=== PATIENT | male | born 1970 | race Two or more races ===

== ENCOUNTER 2016-05-23 19:35 | Inpatient (IN) | payer OTHER ==
[~2016-05-23] VITALS: Ht 172.7 cm; Wt 105.3 kg
[2016-05-23] MEDS ORDERED: dexameTHASONE 4 MG/ML 1ML VIAL (J1100) As Ordered ONE (19:48)
[2016-05-23] MEDS ORDERED: RACEPINEPHrine 2.25 % UD INHA As Ordered ONE ×2 (19:51→21:12)
--- NOTE | 2016-05-23 20:04 | REP ---
Chest one-view HISTORY: Abdominal pain Comparison: None The lungs are clear. The heart is normal in size. The pulmonary vasculature is normal in appearance. Impression: No acute disease. Signed by Baljinder Bess MD 05/23/2016 07:56 P
[2016-05-23] MEDS ORDERED: ISOVUE-370 76% 100ML VIAL (Q9967) As Ordered ONE (20:07)
[2016-05-23 20:34] LABS: BASO % 0.2 % (0.0-1.0); EOS # 0.1 K/mm3 (0.0-0.50); EOS % 0.5 % (0.0-3.0); LARGE UNSTAINED CELL # 0.1 K/mm3 (0.0-0.4); LARGE UNSTAINED CELL % 0.6 % (0.0-4.0); LYMPH # 1.7 K/mm3 (1.5-4.5); LYMPH % 7.8 % (24.0-44.0); MEAN CORPUSCULAR HEMOGLOBIN 32.6 pg (27.0-33.0); MEAN CORPUSCULAR HGB CONC 35.2 g/dl (32.0-36.5); MEAN CORPUSCULAR VOLUME 92.4 fl (80.0-96.0); MONO # 0.8 K/mm3 (0.0-0.8); MONO % 3.6 % (0.0-5.0); NEUTROPHILS # 18.8 K/mm3 (1.8-7.7); NEUTROPHILS % 87.2 % (36.0-66.0); PLATELET COUNT, AUTOMATED 343 k/mm3 (150-450); RED CELL DISTRIBUTION WIDTH 12.7 % (11.5-14.5); WHITE BLOOD COUNT 21.5 K/mm3 (4.0-10.0)
--- NOTE | 2016-05-23 20:50 | REPUSA ---
CT of the soft tissues of the neck with contrast Clinical history: shortness of breath. Technique: Multiple axial CT images were obtained from the base of the skull to the upper thorax afte r ministration of non-ionic intravenous contrast. Coronal and sagittal reconstructions were also obta ined. Findings: The visualized paranasal sinuses are clear. The pterygopalatine fossa, pterygoid plates and pterygoid muscles are unremarkable. The mucosa of the naso- and oropharynx appears unremarkable. The re is a hypodense area of soft tissue at the right posterior base of the epiglottis measuring 2.3 x 1 .6 cm. No discrete fluid collection is identified at this site however. The airway is patent, but mil dly narrowed at this site. The visualized osseous structures are intact. There is no evidence of lymp hadenopathy. The thyroid gland appears unremarkable. The vascular structures demonstrate normal calib er and contour. No enhancing masses are identified. The superficial soft tissues are unremarkable. Impression: Hypodense soft tissue in the right posterior base of the epiglottis as described. This is likely inflammatory in nature. No discrete abscess or mass is identified at this time, but early dev eloping abscess cannot completely be excluded. The findings suggest pharyngitis. Follow-up is suggest ed as clinically indicated.
[2016-05-23] MEDS ORDERED: CLINDAMYCIN INJ 900MG/6ML VIAL As Ordered ONE (21:13)
[2016-05-23] MEDS ORDERED: LevoFLOXacin(LEVAQUIN)500 MG/100 ML BAG (J1956) As Ordered ONE (21:13)
[2016-05-23 21:14] LABS: ANION GAP 10 MEQ/L (8-16); BLOOD UREA NITROGEN 13 MG/DL (7-18); CALCIUM LEVEL 8.3 MG/DL (8.5-10.1); CARBON DIOXIDE LEVEL 24 MEQ/L (21-32); CHLORIDE LEVEL 108 MEQ/L (98-107); CREATININE FOR GFR 0.89 MG/DL (0.70-1.30); GLOMERULAR FILTRATION RATE > 60.0 (>60); GLUCOSE, FASTING 178 MG/DL (70-105); POTASSIUM SERUM 3.7 MEQ/L (3.5-5.1); SODIUM LEVEL 142 MEQ/L (136-145)
[2016-05-23] MEDS ORDERED: PROPOFOL 1,000 MG/100 ML VIAL As Ordered ONE (21:16)
[2016-05-23] MEDS ORDERED: MIDAZOLAM INJ 5 MG/ML VIAL (J2250) As Ordered ONE ×3 (21:37→21:46)
[2016-05-23 21:38] LABS: ABG BASE EXCESS -3.5 (-2.0-2.0); ABG DEVICE NASAL CANN; ABG HCO3 23.3 MEQ/L (22.0-26.0); ABG PARTIAL PRESSURE CO2 47.8 mmHg (35.0-45.0); ABG PARTIAL PRESSURE O2 81.3 mmHg (75.0-100.0); ABG STANDARD HCO3 21.6 MEQ/L (22.0-26.0); ABG TOTAL CO2 24.8 MEQ/L (22.0-29.0); ABG pH (ARTERIAL) 7.306 UNITS (7.350-7.450)
[2016-05-23] MEDS ORDERED: ALBU17IN INH (22:54)
[2016-05-23] MEDS ORDERED: VITMTA PO (22:54)
[2016-05-23] MEDS ORDERED: PROPOFOL 1,000 MG in APPROPRIATE DILUENT 1 EA IV SCH (23:00)
[2016-05-23] MEDS ORDERED: ALBUTEROL SULFATE 2.5 MG/0.5 ML INH NEB SOLN NEB PRN (23:00)
[2016-05-23] MEDS ORDERED: ONDANSETRON 4MG/2ML VIAL (J2405) IV PRN (23:00)
[2016-05-23] MEDS ORDERED: REFRIGERATOR IV KEYS XX PRN (23:00)
[2016-05-23] MEDS ORDERED: BISACODYL 10 MG SUPP PR PRN (23:00)
[2016-05-23 23:07] LABS: ABG BASE EXCESS -8.7 (-2.0-2.0); ABG DEVICE NASAL CANN; ABG HCO3 19.6 MEQ/L (22.0-26.0); ABG PARTIAL PRESSURE CO2 50.8 mmHg (35.0-45.0); ABG PARTIAL PRESSURE O2 95.2 mmHg (75.0-100.0); ABG STANDARD HCO3 17.7 MEQ/L (22.0-26.0); ABG TOTAL CO2 21.2 MEQ/L (22.0-29.0)
[2016-05-23 23:11] LABS: ABG pH (ARTERIAL) 7.205 UNITS (7.350-7.450)
[2016-05-23] MEDS: D5W/0.45% SODIUM CHLORIDE 1,000 ML IV SCH (23:15)
[2016-05-24] VITALS (42 sets, daily range): BP systolic 95–143; BP diastolic 51–74; O2SAT 96
[2016-05-24] MEDS ORDERED: GLUCAGON FOR INJ 1 MG VIAL (J1610) SC PRN (00:15)
[2016-05-24] MEDS ORDERED: GLUCOSE 4 GM CHEW TABLET PO PRN (00:15)
[2016-05-24] MEDS ORDERED: PROPOFOL 1,000 MG/100 ML VIAL As Ordered ONE (00:15)
[2016-05-24] MEDS ORDERED: DEXTROSE 50% 50 ML SYRINGE IV PRN (00:15)
[2016-05-24] MEDS ORDERED: MIDAZOLAM INJ 2 MG/2 ML VIAL (J2250) As Ordered ONE (00:27)
[2016-05-24 00:53] LABS: ABG BASE EXCESS -6.4 (-2.0-2.0); ABG HCO3 20.1 MEQ/L (22.0-26.0); ABG PARTIAL PRESSURE CO2 43.6 mmHg (35.0-45.0); ABG PARTIAL PRESSURE O2 97.5 mmHg (75.0-100.0); ABG STANDARD HCO3 19.3 MEQ/L (22.0-26.0); ABG TOTAL CO2 21.5 MEQ/L (22.0-29.0); ABG pH (ARTERIAL) 7.282 UNITS (7.350-7.450)
[2016-05-24] MEDS ORDERED: ETOMIDATE INJ 20MG/10ML VIAL ONE (01:08)
[2016-05-24] MEDS ORDERED: PROPOFOL 200 MG/20 ML VIAL ONE (01:08)
[2016-05-24] MEDS ORDERED: SUCCINYLCHOLINE 100 MG/5 ML SYRINGE (J0330) ONE (01:08)
--- NOTE | 2016-05-24 01:25 | REP ---
Clinical: Endotracheal tube placement. Comparison: 05/23/2016 07:51 p.m. Findings: Endotracheal tube approximately 4.5 cm above the patricia. Cardiac silhouette is upper limits of normal. Poor expiratory effort limits evaluation and pulmonary vascular congestion as well as scattered atelectasis cannot be excluded. No definite effusion. No pneumothorax. Skeletal structures grossly intact. Impression: Endotracheal tube in satisfactory position. Poor expiratory effort limits evaluation. Signed by Jevon Del Real MD 05/24/2016 01:16 A
--- NOTE | 2016-05-24 01:48 | EDDOCDS ---
Nurse's Notes [facility] Name: Ki Chaney Age: 46 yrs Sex: Male : 1970 Arrival Date: 05/23/2016 Time: 19:35 Bed Admit Hold Private MD: Vanessa Pcp Diagnosis: Acute epiglottitis with obstruction Presentation: 05/23 19:39 Presenting complaint: EMS states: patient from [facility], presented to nn1 them with sore throat and feeling like his throat is closing. Patient reports SOB is worse lying back. Patient given 125mg solumedrol IV, 0.3mg epi IM, and 1 duoneb treatment. Patient has 20G left hand and is on 6L nonrebreather. 19:39 Acuity: WILLIAMS Level 2 nn1 19:39 Method Of Arrival: Ambulance nn1 19:43 Adult Sepsis Screening: The patient does not have new or worsening altered mentation. nn1 Patient has a respiratory rate of greater than or equal to 22 (1 point). Systolic blood pressure is greater than 100. Patient has a qSOFA score of 1- Negative Sepsis Screen. Suicide/Homicide risk assessment- the patient denies having any suicidal and/or homicidal ideations and does not present with any other emotional, behavioral or mental health complaints. 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 Transition of care: Patient was received from [facility]. Triage Assessment: 19:45 General: Appears uncomfortable, Behavior is appropriate for age, cooperative. Pain: nn1 Location: throat Pain currently is 10 out of 10 on a pain scale. Quality of pain is described as "feel like my throat is closing". HIV screening NA for this visit. The patient is triaged at the bedside. See Assessment in Nurses Notes section of ED record. Neurological: Level of Consciousness is awake, alert, obeys commands. Respiratory: Onset: The symptoms/episode began/occurred 1600. Patient reports he went to urgent care because he thought he had strep throat, by the time he arrived he felt like his throat was closing up and he could not breath. , Airway is patent Respiratory effort is even, labored, Respiratory pattern is regular. Derm: Skin is flushed. Historical: - Allergies: PENICILLINS; - Home Meds: 1. none - PMHx: none; - PSHx: Lithotripsy; - Social history: Smoking status: Patient uses tobacco products, heavy tobacco smoker. No barriers to communication noted, The patient speaks fluent Romanian, Speaks appropriately for age. - Family history: Not pertinent. - : The pt / caregiver states he / she is not on anticoagulants. Home medication list is obtained from the patient. - Exposure Risk Screening:: None identified. Screenin:38 Screening information is obtained from the patient. Fall risk: No risks identified. cf2 Assistance ADL's: requires no assistance with activities of daily living. Abuse/DV Screen: The patient / caregiver reports he/she is: not in a situation that causes fear, pain or injury. Nutritional screening: No deficits noted. Advance Directives: Further advance directive information is declined. home support is adequate. Assessment: 20:38 Adult Sepsis Screening: The patient does not have new or worsening altered mentation. cf2 Patient has a respiratory rate of greater than or equal to 22 (1 point). Systolic blood pressure is greater than 100. Patient has a qSOFA score of 1- Negative Sepsis Screen. General: Appears distressed, Behavior is appropriate for age, cooperative. Pain: Denies pain. Neurological: No deficits noted. EENT: Throat is reddened. Cardiovascular: Rhythm is regular. Cardiovascular: Chest pain is denied Denies fatigue, lightheadedness, palpitations, syncope. Respiratory: Airway possibly obstructed. Stridor present patient states blockage in throat Breath sounds are clear Stridor noted. 20:40 Respiratory: Airway is compromised Breath sounds are clear Stridor noted. cf2 20:50 General: Patient to Ct scan. cf2 21:00 General: MD speaks with patient in regards to maintaining airway. Decision made for cf2 intubation, patient and significant other both agree. 21:21 General: Patient was medicated with Etomidate and Succ. Patient was intubated with cf2 7.0/21 at lipon first attempt. Placement verified via auscultation and awaiting x-ray arrival. 21:30 General: Patient medicated with Versed as patient is bucking the vent . cf2 21:55 General: #14 [place] sump inserted with placement verified via auscultation. #16 greek cf[address] Pedersen at bedside to assess patient . 23:13 General: pH 7.205 made aware. Awaiting new orders. General: Patient currently cf2 sedated. Vital signs stable.. 23:15 General: Report to oncoming shift . cf2 23:20 General: Appears in no apparent distress, to be sleeping. orally intubated. sls1 Neurological: Level of Consciousness is sedated. Respiratory: Airway via oral intubation. 23:20 Cardiovascular: Rhythm is regular. Respiratory:. Derm: Skin is pink, warm & dry. js15 05/24 00:20 Reassessment: Patient appears in no apparent distress at this time. Pt orally js15 intubated, sedated; resting on stretcher, skin pink, moist, warm; cardiac rhythm is NSR; [facility]. 01:05 Reassessment: Patient appears in no apparent distress at this time. Pt resting on js15 stretcher, orally intubated; skin pink, warm, dry; cardiac rhythm is NSR. Vital Signs: 05/23 19:20 Pulse 107 MON; Pulse Ox 93% ; cf2 19:24 Pulse 100 MON; Pulse Ox 93% ; cf2 19:27 Pulse 99 MON; Pulse Ox 94% ; cf2 19:29 Pulse 100 MON; Pulse Ox 94% ; cf2 19:39 BP 151 / 87 (auto/); cf2 19:41 Pulse 89 MON; Pulse Ox 98% ; cf2 19:44 Pulse 89 MON; Pulse Ox 98% ; cf2 19:48 Pulse 85 MON; Pulse Ox 98% ; cf2 19:48 BP 147 / 84 (auto/); cf2 19:49 Pulse 86 MON; Pulse Ox 98% ; cf2 19:53 Pulse 90 MON; Pulse Ox 97% ; cf2 19:56 Pulse 89 MON; Pulse Ox 97% ; cf2 20:00 Pulse 91 MON; Pulse Ox 97% ; cf2 20:03 Pulse 87 MON; Pulse Ox 97% ; cf2 20:03 BP 158 / 86 (auto/); cf2 20:07 Pulse 88 MON; Pulse Ox 97% ; cf2 20:10 Pulse 87 MON; Pulse Ox 96% ; cf2 20:14 Pulse 90 MON; Pulse Ox 96% ; cf2 20:17 Pulse 100 MON; Pulse Ox 97% ; cf2 20:18 BP 165 / 86 (auto/); cf2 20:19 Pulse 86 MON; Pulse Ox 97% ; cf2 20:23 Pulse 87 MON; Pulse Ox 97% ; cf2 20:25 Pulse 99 MON; Pulse Ox 97% ; cf2 20:29 Pulse 100 MON; cf2 20:31 Pulse 92 MON; Pulse Ox 96% ; cf2 20:33 BP 151 / 78 (auto/); cf2 20:34 Pulse 90 MON; Pulse Ox 95% ; cf2 20:48 BP 150 / 74 (auto/); cf2 20:49 Pulse 89 MON; Pulse Ox 94% ; cf2 21:03 BP 143 / 71 (auto/); cf2 21:04 Pulse 84 MON; Pulse Ox 90% ; cf2 21:18 BP 154 / 80 (auto/); cf2 21:19 Pulse 97 MON; Pulse Ox 98% ; cf2 21:33 Weight 117.93 kg (R); sls1 21:35 Pulse 101 MON; cf2 21:35 BP 159 / 83 (auto/); cf2 21:36 Pulse 98 MON; cf2 21:37 Pulse 96 MON; Pulse Ox 94% ; cf2 21:42 BP 131 / 85 (auto/); cf2 21:43 Pulse 99 MON; Pulse Ox 96% ; cf2 21:46 Pulse 97 MON; Pulse Ox 95% ; cf2 21:46 BP 136 / 76 (auto/); cf2 21:51 Pulse 93 MON; Pulse Ox 96% ; cf2 21:51 BP 140 / 71 (auto/); cf2 21:56 Pulse 97 MON; Pulse Ox 97% ; cf2 21:56 BP 133 / 71 (auto/); cf2 22:01 Pulse 88 MON; Pulse Ox 96% ; cf2 22:01 BP 107 / 54 (auto/); cf2 22:06 Pulse 97 MON; Pulse Ox 97% ; cf2 22:06 BP 111 / 75 (auto/); cf2 22:11 Pulse 83 MON; Pulse Ox 95% ; cf2 22:11 BP 108 / 56 (auto/); cf2 22:16 Pulse 82 MON; Pulse Ox 96% ; cf2 22:16 BP 101 / 57 (auto/); cf2 22:22 BP 103 / 55 (auto/); cf2 22:23 Pulse 81 MON; Pulse Ox 96% ; cf2 22:26 Pulse 82 MON; Pulse Ox 96% ; cf2 22:26 BP 96 / 51 (auto/); cf2 22:31 Pulse 81 MON; Pulse Ox 96% ; cf2 22:31 BP 103 / 58 (auto/); cf2 22:36 Pulse 80 MON; Pulse Ox 96% ; cf2 22:36 BP 103 / 59 (auto/); cf2 22:41 Pulse 80 MON; Pulse Ox 96% ; cf2 22:41 BP 105 / 56 (auto/); cf2 22:46 Pulse 79 MON; Pulse Ox 96% ; cf2 22:46 BP 109 / 56 (auto/); cf2 22:51 Pulse 85 MON; Pulse Ox 96% ; cf2 22:51 BP 119 / 57 (auto/); cf2 22:56 Pulse 74 MON; Pulse Ox 96% ; cf2 22:56 BP 118 / 58 (auto/); cf2 23:01 Pulse 75 MON; Pulse Ox 97% ; cf2 23:01 BP 110 / 57 (auto/); cf2 23:06 Pulse 76 MON; Pulse Ox 97% ; cf2 23:06 BP 107 / 58 (auto/); cf2 23:11 BP 108 / 58 (auto/); cf2 23:11 Pulse 77 MON; Pulse Ox 96% ; cf2 23:15 Pulse 77 MON; Resp 16; Pulse Ox 96% on 50% FiO2 ETT vent; js15 23:16 BP 107 / 59 (auto/); sls1 23:25 Pulse 75 MON; Pulse Ox 96% ; sls1 23:26 BP 114 / 63 (auto/); sls1 23:30 Pulse 73 MON; Pulse Ox 96% ; sls1 23:31 BP 114 / 63 (auto/); sls1 23:35 Pulse 71 MON; Pulse Ox 97% ; sls1 23:36 BP 115 / 65 (auto/); sls1 23:40 Pulse 71 MON; Pulse Ox 97% ; sls1 23:41 BP 112 / 66 (auto/); sls1 23:45 Pulse 71 MON; Pulse Ox 97% ; sls1 23:46 BP 115 / 67 (auto/); sls1 23:50 Pulse 70 MON; Pulse Ox 97% ; sls1 23:51 BP 116 / 67 (auto/); sls1 23:55 Pulse 70 MON; Pulse Ox 98% ; sls1 23:56 BP 117 / 68 (auto/); sls1 05/24 00:12 BP 120 / 69 (auto/); sls1 00:12 Pulse 68 MON; Pulse Ox 98% ; sls1 00:22 BP 121 / 71 (auto/); sls1 00:22 Pulse 68 MON; Pulse Ox 98% ; sls1 00:31 Pulse 77 MON; Pulse Ox 96% ; sls1 00:32 BP 138 / 80 (auto/); sls1 00:42 BP 141 / 84 (auto/); sls1 00:45 Pulse 76 MON; Pulse Ox 97% ; sls1 00:52 BP 130 / 76 (auto/); sls1 00:53 Pulse 74 MON; Pulse Ox 93% ; sls1 01:02 BP 120 / 64 (auto/); js15 01:02 Pulse 72 MON; Pulse Ox 94% ; js15 01:12 BP 111 / 61 (auto/); js15 01:13 Pulse 69 MON; Resp 16; Temp 97.9(R); Pulse Ox 94% on 50% FiO2 ETT vent; js15 Vitals: 05/23 20:42 Log In Time N/A - ambulance arrival. cf2 ED Course: 19:37 Patient visited by Daisy Hassan PCA. tmm1 19:37 Patient moved to Waiting tmm1 19:38 No Pcp is Private Physician. tmm1 19:38 Ashley Neil RN is Primary Nurse. tmm1 19:38 Patient moved to 1 tmm1 19:41 Gaston Vargas DO is Attending Physician. cs11 19:41 Patient visited by Gaston Vargas DO. cs11 19:42 Triage Initiated nn1 20:08 BLOOD CULTURES Sent. cf2 20:08 MED Profile Sent. cf2 20:08 CBC with Diff Sent. cf2 20:08 -Blood Culture Sent. cf2 20:09 Primary Nurse role handed off by Ashley Neil RN cf2 20:09 Loree Aldana,ANASTACIO is Primary Nurse. cf2 20:09 Patient visited by Loree Aldana,ANASTACIO. cf2 20:19 Patient visited by Loree Aldana,ANASTACIO. cf2 20:28 Patient visited by Loree Aldana,ANASTACIO. cf2 20:33 Patient visited by Loree Aldana,ANASTACIO. cf2 20:38 The patient / caregiver is instructed regarding the plan of care and ED course. Patient cf2 has correct armband on for positive identification. Placed in gown. Bed in low position. Call light in reach. Side rails up X 1. Side rails up X2. groundwater monitoring technician on. Pulse ox on. NIBP on. Property :Personal belongings accompany Pt. Door closed. Noise minimized. Visitors limited. Lights dimmed. Moved to private room. Verbal reassurance given. Warm blanket given. Pillow given. Head of bed elevated. Diet: Patient is NPO. 20:38 Inserted saline lock: 20 gauge in left hand and blood collected. The patient tolerated cf2 the procedure well. No procedures done that require assistance. 20:41 Chest, 1 View Returned. EDMS 21:11 [facility] Payment Agreement was scanned into [employer] and attached to record. zo 21:20 Patient name changed from Hiro\\S\\M\\S\\Chaney\\S\\ to Ki\\S\\ \\S\\Chaney. EDMS 21:24 CT Neck With Contrast Returned. EDMS 21:35 -Arterial Blood Gas Sent. rs5 21:45 Zafar Pedersen is Hospitalizing Provider. cs11 21:55 Romero cath inserted 16 Fr. Balloon inflated. To gravity drainage. Suctioned orally - cf2 moderate amount clear sputum Assist ventilation TV400 O2 40% R14 Peep 5. 21:55 Labs drawn. (by ED staff). Labs/Blood culture drawn. NGT inserted to intermittent cf2 suction. Returned gastric contents. Patient tolerated well. OG tube inserted. 22:09 Patient visited by Loree Aldana RN. cf2 22:54 Patient visited by Loree Aldana RN. cf2 23:00 -Arterial Blood Gas Sent. bb3 23:25 Patient visited by Loree Aldana RN. cf2 23:30 Romero cath inserted Balloon inflated. To gravity drainage. inserted by Stefanie Batista RN. js15 23:39 Patient moved to Admit Hold [facility] 05/24 00:48 ARTERIAL BLOOD GAS Sent. bb3 01:43 Chest, 1 View Returned. EDMS Administered Medications: Discontinued: Dexamethasone 12 mg IV at bolus once Discontinued: levofloxacin 500 mg IVPB once over 60 mins Discontinued: Clindamycin 900 mg IVPB once over 30 mins; dilute in 50mL of NS or D5W 05/23 19:50 Drug: Dexamethasone 12 mg [dexamethasone 4 mg/mL injection solution] Route: IV; Rate: cf2 bolus; Site: left antecubital; 05/24 01:16 Follow up: Response: No significant change. cf2 05/23 19:50 Drug: Racepinephrine 0.5 ml [racepinephrine 2.25 % solution for nebulization (0.5 mL)] rs5 Route: Inhalation; Infused Over: 15 mins; 21:00 Drug: Clindamycin 900 mg [clindamycin 600 mg/50 mL in 5 % dextrose intravenous cf2 piggyback] Route: IVPB; Infused Over: 30 mins; Site: left antecubital; 21:21 Drug: Etomidate 20 mg [etomidate 2 mg/mL intravenous solution (10 mL)] Route: IVP; af2 Site: right antecubital; 05/24 01:13 Follow up: Response: No significant change. cf2 05/23 21:21 Drug: Succinylcholine - Quelicin (1mg/kg) 100 mg [Quelicin 20 mg/mL injection solution af2 (5 mL)] Route: IVP; Site: right antecubital; 05/24 01:13 Follow up: Response: No significant change. cf2 05/23 21:30 Drug: levofloxacin 500 mg [levofloxacin 500 mg/100 mL in 5 % dextrose intravenous cf2 piggyback] Route: IVPB; Infused Over: 60 mins; Site: left antecubital; 05/24 01:16 Follow up: Response: No significant change. cf2 01:16 Follow up: Response: No significant change. 2 05/23 21:30 Drug: diprovan 200 mg Route: IV; Rate: 40 mcg/kg/min; Site: left antecubital; cf2 05/24 01:13 Follow up: Response: No Adverse Reaction 2 05/23 21:35 Drug: Versed - Midazolam (PF) 5 mg [midazolam (PF) 5 mg/mL injection solution (1 mL)] cf2 Route: IVP; Site: left antecubital; 05/24 01:15 Follow up: Response: No significant change. cf2 05/23 21:40 Drug: Versed - Midazolam (PF) 5 mg [midazolam (PF) 5 mg/mL injection solution (1 mL)] cf2 Route: IVP; Site: left antecubital; 05/24 01:14 Follow up: Response: No significant change. cf2 05/23 21:45 Drug: Versed - Midazolam (PF) 10 mg [midazolam (PF) 5 mg/mL injection solution (2 mL)] cf2 Route: IVP; Site: left antecubital; 05/24 01:14 Follow up: Response: No significant change. cf2 05/23 21:55 Drug: Versed - Midazolam (PF) 10 mg [midazolam (PF) 5 mg/mL injection solution (2 mL)] cf2 Route: IVP; Site: left antecubital; 05/24 01:15 Follow up: Response: No significant change. cf2 05/23 22:05 Not Given (Duplicate Order): Versed 5 mg IM once cf2 22:10 Drug: Versed - Midazolam (PF) 5 mg [midazolam (PF) 5 mg/mL injection solution (1 mL)] cf2 Route: IVP; Site: left antecubital; 05/24 01:14 Follow up: Response: No significant change. cf2 05/23 22:10 Drug: Versed - Midazolam (PF) 5 mg [midazolam (PF) 5 mg/mL injection solution (1 mL)] cf2 Route: IVP; Site: left antecubital; 05/24 01:13 Follow up: Response: No significant change. cf2 05/23 22:55 Drug: Versed - Midazolam (PF) 10 mg [midazolam (PF) 5 mg/mL injection solution (2 mL)] cf2 Route: IVP; Site: left antecubital; 05/24 01:14 Follow up: Response: No Adverse Reaction cf2 00:11 Not Given (Duplicate Order): Versed - Midazolam (PF) 10 mg IVP once cf2 00:35 Drug: Midazolam 2 mg [midazolam 1 mg/mL injection solution (2 mL)] Route: IVP; Site: sls1 left antecubital; Output: 01:12 Urine: 800.00ml (Romero); Total: 800.00ml. js15 RT: 05/23 20:03 Initial Med Neb Given as ordered Patient was instructed and evaluated on procedure rs5 Patient tolerated procedure well without adverse effect. Respiratory: Respiratory effort is even, labored, Breath sounds with wheezes bilaterally. Reports air hunger. 21:18 Intubation: Performed by Ventilated with 100% NRB prior to procedure. placed bb3 orally. 7.0 Fr. ETT Cricoid pressure applied during procedure. Placement verified by CO2 detector w/ + color change, auscultating bilateral breath sounds, O2 saturation after procedure was 99 %. Ventilated with ventilator. 21:26 Ventilation: Ventilator Settings Assist Control, FiO2 40% Resp Rate: 16, Tidal Volume bb3 425ml PEEP: 5. Respiratory: PIP approx 19-20 cmH20. 21:35 ABG's drawn from left radial artery allens test done and positive pressure held for 5 rs5 minutes no bleeding noted pressure bandage applied specimen sent pt. tolerated well. Subsequent Med Neb Given as ordered Patient was reinforced on procedure Patient tolerated procedure well without adverse effect. 21:52 Ventilation: Ventilator Settings Pressure Control, FiO2 50% PEEP: 5. rs5 22:38 Respiratory: minute ventilation approx 8 LPM on previous PC settings. bb3 22:41 Ventilation: Ventilator Settings Assist Control, FiO2 50% Resp Rate: 16, Tidal Volume bb3 425ml PEEP: 5. Respiratory: minute ventilation approx 10 LPM. PIP ranges 19-23 on current settings. 23:00 ABG's drawn from right radial artery pressure held for 5 minutes no bleeding noted bb3 pressure bandage applied specimen sent pt. tolerated well. Respiratory: AC 425x16 +5 50%. 23:52 Ventilation: Ventilator Settings PEEP: 8. Respiratory: increased from +[address] rupali pedersen. 05/24 00:48 ABG's drawn from right radial artery pressure held for 5 minutes no bleeding noted bb3 pressure bandage applied specimen sent pt. tolerated well. Respiratory: AC 425x16 +8 50%. Order Results: Lab Order: CBC with Diff; SPEC'M 05/23/16 20:01 Test: WHITE BLOOD COUNT; Value: 21.5; Range: 4.0-10.0; Abnormal: Above high normal; Units: K/mm3; Status: F Test: RED BLOOD COUNT; Value: 5.35; Range: 4.30-6.10; Units: M/mm3; Status: F Test: HEMOGLOBIN; Value: 17.4; Range: 14.0-18.0; Units: g/dl; Status: F Test: HEMATOCRIT; Value: 49.5; Range: 42.0-52.0; Units: %; Status: F Test: MEAN CORPUSCULAR VOLUME; Value: 92.4; Range: 80.0-96.0; Units: fl; Status: F Test: MEAN CORPUSCULAR HEMOGLOBIN; Value: 32.6; Range: 27.0-33.0; Units: pg; Status: F Test: MEAN CORPUSCULAR HGB CONC; Value: 35.2; Range: 32.0-36.5; Units: g/dl; Status: F Test: RED CELL DISTRIBUTION WIDTH; Value: 12.7; Range: 11.5-14.5; Units: %; Status: F Test: PLATELET COUNT, AUTOMATED; Value: 343; Range: 150-450; Units: k/mm3; Status: F Test: NEUTROPHILS %; Value: 87.2; Range: 36.0-66.0; Abnormal: Above high normal; Units: %; Status: F Test: LYMPH %; Value: 7.8; Range: 24.0-44.0; Abnormal: Below low normal; Units: %; Status: F Test: MONO %; Value: 3.6; Range: 0.0-5.0; Units: %; Status: F Test: EOS %; Value: 0.5; Range: 0.0-3.0; Units: %; Status: F Test: BASO %; Value: 0.2; Range: 0.0-1.0; Units: %; Status: F Test: LARGE UNSTAINED CELL %; Value: 0.6; Range: 0.0-4.0; Units: %; Status: F Test: NEUTROPHILS #; Value: 18.8; Range: 1.8-7.7; Abnormal: Above high normal; Units: K/mm3; Status: F Test: LYMPH #; Value: 1.7; Range: 1.5-4.5; Units: K/mm3; Status: F Test: MONO #; Value: 0.8; Range: 0.0-0.8; Units: K/mm3; Status: F Test: EOS #; Value: 0.1; Range: 0.0-0.50; Units: K/mm3; Status: F Test: BASO #; Value: 0.0; Range: 0.0-0.2; Units: K/mm3; Status: F Test: LARGE UNSTAINED CELL #; Value: 0.1; Range: 0.0-0.4; Units: K/mm3; Status: F Lab Order: MED Profile; SPEC'05/23/16 20:44 Test: GLUCOSE, FASTING; Value: 178; Range: 70-105; Abnormal: Above high normal; Units: MG/DL; Status: F Test: BLOOD UREA NITROGEN; Value: 13; Range: 7-18; Units: MG/DL; Status: F Test: CREATININE FOR GFR; Value: 0.89; Range: 0.70-1.30; Units: MG/DL; Status: F Test: GLOMERULAR FILTRATION RATE; Value: > 60.0; Range: >60; Status: F Test: SODIUM LEVEL; Value: 142; Range: 136-145; Units: MEQ/L; Status: F Test: POTASSIUM SERUM; Value: 3.7; Range: 3.5-5.1; Units: MEQ/L; Status: F Test: CHLORIDE LEVEL; Value: 108; Range: 98-107; Abnormal: Above high normal; Units: MEQ/L; Status: F Test: CARBON DIOXIDE LEVEL; Value: 24; Range: 21-32; Units: MEQ/L; Status: F Test: ANION GAP; Value: 10; Range: 8-16; Units: MEQ/L; Status: F Test: CALCIUM LEVEL; Value: 8.3; Range: 8.5-10.1; Abnormal: Below low normal; Units: MG/DL; Status: F Test Note: ; Units are mL/min/1.73 m2 Chronic Kidney Disease Staging per NKF: Stage I & II GFR >=60 Normal to Mildly Decreased Stage III GFR 30-59 Moderately Decreased Stage IV GFR 15-29 Severely Decreased Stage V GFR <15 Very Little GFR Left ESRD GFR <15 on CLINIC OFFICE ASSISTANT Lab Order: -Arterial Blood Gas; SPEC'M 05/23/16 21:29 Test: ABG pH (ARTERIAL); Value: 7.306; Range: 7.350-7.450; Abnormal: Below low normal; Units: UNITS; Status: F Test: ABG PARTIAL PRESSURE CO2; Value: 47.8; Range: 35.0-45.0; Abnormal: Above high normal; Units: mmHg; Status: F Test: ABG PARTIAL PRESSURE O2; Value: 81.3; Range: 75.0-100.0; Units: mmHg; Status: F Test: ABG TOTAL CO2; Value: 24.8; Range: 22.0-29.0; Units: MEQ/L; Status: F Test: ABG HCO3; Value: 23.3; Range: 22.0-26.0; Units: MEQ/L; Status: F Test: ABG BASE EXCESS; Value: -3.5; Range: -2.0-2.0; Abnormal: Below low normal; Status: F Test: ABG STANDARD HCO3; Value: 21.6; Range: 22.0-26.0; Abnormal: Below low normal; Units: MEQ/L; Status: F Test: ABG O2 SATURATION; Value: 95.4; Range: 95.0-99.0; Units: %; Status: F Test: ABG DEVICE; Value: NASAL VICENTE; Status: F Lab Order: -Arterial Blood Gas; [facility] 05/23/16 22:59 Test: ABG pH (ARTERIAL); Value: 7.205; Range: 7.350-7.450; Abnormal: Critical Low; Units: UNITS; Status: F Test: ABG PARTIAL PRESSURE CO2; Value: 50.8; Range: 35.0-45.0; Abnormal: Above high normal; Units: mmHg; Status: F Test: ABG PARTIAL PRESSURE O2; Value: 95.2; Range: 75.0-100.0; Units: mmHg; Status: F Test: ABG TOTAL CO2; Value: 21.2; Range: 22.0-29.0; Abnormal: Below low normal; Units: MEQ/L; Status: F Test: ABG HCO3; Value: 19.6; Range: 22.0-26.0; Abnormal: Below low normal; Units: MEQ/L; Status: F Test: ABG BASE EXCESS; Value: -8.7; Range: -2.0-2.0; Abnormal: Below low normal; Status: F Test: ABG STANDARD HCO3; Value: 17.7; Range: 22.0-26.0; Abnormal: Below low normal; Units: MEQ/L; Status: F Test: ABG O2 SATURATION; Value: 96.3; Range: 95.0-99.0; Units: %; Status: F Test: ABG DEVICE; Value: NASAL VICENTE; Status: F Lab Order: ARTERIAL BLOOD GAS; SPEC'M 05/24/16 00:47 Test: ABG pH (ARTERIAL); Value: 7.282; Range: 7.350-7.450; Abnormal: Below low normal; Units: UNITS; Status: F Test: ABG PARTIAL PRESSURE CO2; Value: 43.6; Range: 35.0-45.0; Units: mmHg; Status: F Test: ABG PARTIAL PRESSURE O2; Value: 97.5; Range: 75.0-100.0; Units: mmHg; Status: F Test: ABG TOTAL CO2; Value: 21.5; Range: 22.0-29.0; Abnormal: Below low normal; Units: MEQ/L; Status: F Test: ABG HCO3; Value: 20.1; Range: 22.0-26.0; Abnormal: Below low normal; Units: MEQ/L; Status: F Test: ABG BASE EXCESS; Value: -6.4; Range: -2.0-2.0; Abnormal: Below low normal; Status: F Test: ABG STANDARD HCO3; Value: 19.3; Range: 22.0-26.0; Abnormal: Below low normal; Units: MEQ/L; Status: F Test: ABG O2 SATURATION; Value: 97.3; Range: 95.0-99.0; Units: %; Status: F Radiology Order: Chest, 1 View Test: Chest, 1 View REASON FOR EXAMINATION: Abdomen Pain; Chest one-view; ; HISTORY: Abdominal pain; ; Comparison: None; ; The lungs are clear. The heart is normal in size. The pulmonary vasculature is; normal in appearance.; ; Impression: No acute disease.; ; ; Signed by; Baljinder Bess MD 05/23/2016 07:56 P; Radiology Order: CT Neck With Contrast Test: CT Neck With Contrast REASON FOR EXAMINATION: Shortness of Breath; ; CT of the soft tissues of the neck with contrast; Clinical history: shortness of breath.; Technique: Multiple axial CT images were obtained from the base of the skull to the upper thorax afte; r ministration of non-ionic intravenous contrast. Coronal and sagittal reconstructions were also obta; ined.; Findings: The visualized paranasal sinuses are clear. The pterygopalatine fossa, pterygoid plates and; pterygoid muscles are unremarkable. The mucosa of the naso- and oropharynx appears unremarkable. The; re is a hypodense area of soft tissue at the right posterior base of the epiglottis measuring 2.3 x 1; .6 cm. No discrete fluid collection is identified at this site however. The airway is patent, but mil; dly narrowed at this site. The visualized osseous structures are intact. There is no evidence of lymp; hadenopathy. The thyroid gland appears unremarkable. The vascular structures demonstrate normal calib; er and contour. No enhancing masses are identified. The superficial soft tissues are unremarkable.; Impression: Hypodense soft tissue in the right posterior base of the epiglottis as described. This is; likely inflammatory in nature. No discrete abscess or mass is identified at this time, but early dev; eloping abscess cannot completely be excluded. The findings suggest pharyngitis. Follow-up is suggest; ed as clinically indicated.; ; Radiology Order: Chest, 1 View Test: Chest, 1 View REASON FOR EXAMINATION: ett place; Clinical: Endotracheal tube placement.; ; Comparison: 05/23/2016 07:51 p.m.; ; Findings:; Endotracheal tube approximately 4.5 cm above the patricia.; Cardiac silhouette is upper limits of normal.; Poor expiratory effort limits evaluation and pulmonary vascular congestion as; well as scattered atelectasis cannot be excluded. No definite effusion. No; pneumothorax. Skeletal structures grossly intact.; ; Impression:; Endotracheal tube in satisfactory position. Poor expiratory effort limits; evaluation.; ; ; Signed by; Jevon Del Real MD 05/24/2016 01:16 A; Outcome: 05/23 20:38 CT Study completed. cf2 21:45 Decision to Hospitalize by Provider. cs11 05/24 01:05 Admission hand-off: Report called to Rosie CHAVES. js15 01:05 Discharge Assessment: Patient sedated. patient administered narcotics - no. The js15 following High Risk Discharge criteria are identified: None. Admitted to ICU accompanied by nurse, accompanied by tech, family with patient, via stretcher, with oxygen, on monitor, with chart. critical. Property given to girlfriencristóbal Cade. 01:47 Patient left the ED. sls1 Signatures: Dispatcher [employer] EDMS Idris Amaya Brad bb3 Hortencia Rossi, RN RN sls1 Jordi Hitchcock,RT RT rs5 Gaston Vargas, DO DO cs11 McLear, Daisy, PATIENT CARE REPRESENTATIVE PATIENT CARE REPRESENTATIVE tmm1 Fadia Egan,RN RN af2 Twyla Gotti,RN RN js15 Linda Grullon,RN RN nn1 Loree Aldana,RN RN cf2 Corrections: (The following items were deleted from the chart) 05/23 21:28 21:26 Ventilation: Ventilator Settings Assist Control, FiO2 40% Resp Rate: 16, Tidal bb3 Volume 400ml PEEP: 5. bb3 05/24 00:11 05/22 21:30 Versed - Midazolam (PF) 10 mg IVP in left antecubital cf2 cf2 05/24 01:10 05/23 23:15 Pulse 77bpm; Monitor; Pulse Ox 96%; [facility] js15 MTDD
--- NOTE | 2016-05-24 01:48 | EDDOCDS ---
Physician Documentation [facility] Name: Ki Chaney Age: 46 yrs Sex: Male : 1970 Arrival Date: 05/23/2016 Time: 19:35 Bed Admit Hold Private MD: No Pcp Disposition: 05/23 22:49 Critical Care:. cs11 Disposition: 05/23/16 21:45 Hospitalization ordered by Zafar Pedersen for Inpatient Admission. Preliminary diagnosis is Acute epiglottitis with obstruction. - Bed requested for M ICU. - Status is Inpatient Admission. sls1 - Condition is Stable. - Problem is new. - Symptoms have improved. Historical: - Allergies: PENICILLINS; - Home Meds: 1. none - PMHx: none; - PSHx: Lithotripsy; - Social history: Smoking status: Patient uses tobacco products, heavy tobacco smoker. No barriers to communication noted, The patient speaks fluent Yi, Speaks appropriately for age. - Family history: Not pertinent. - : The pt / caregiver states he / she is not on anticoagulants. Home medication list is obtained from the patient. - Exposure Risk Screening:: None identified. Vital Signs: 19:20 Pulse 107 MON; Pulse Ox 93% ; cf2 19:24 Pulse 100 MON; Pulse Ox 93% ; cf2 19:27 Pulse 99 MON; Pulse Ox 94% ; cf2 19:29 Pulse 100 MON; Pulse Ox 94% ; cf2 19:39 BP 151 / 87 (auto/); cf2 19:41 Pulse 89 MON; Pulse Ox 98% ; cf2 19:44 Pulse 89 MON; Pulse Ox 98% ; cf2 19:48 Pulse 85 MON; Pulse Ox 98% ; cf2 19:48 BP 147 / 84 (auto/); cf2 19:49 Pulse 86 MON; Pulse Ox 98% ; cf2 19:53 Pulse 90 MON; Pulse Ox 97% ; cf2 19:56 Pulse 89 MON; Pulse Ox 97% ; cf2 20:00 Pulse 91 MON; Pulse Ox 97% ; cf2 20:03 Pulse 87 MON; Pulse Ox 97% ; cf2 20:03 BP 158 / 86 (auto/); cf2 20:07 Pulse 88 MON; Pulse Ox 97% ; cf2 20:10 Pulse 87 MON; Pulse Ox 96% ; cf2 20:14 Pulse 90 MON; Pulse Ox 96% ; cf2 20:17 Pulse 100 MON; Pulse Ox 97% ; cf2 20:18 BP 165 / 86 (auto/); cf2 20:19 Pulse 86 MON; Pulse Ox 97% ; cf2 20:23 Pulse 87 MON; Pulse Ox 97% ; cf2 20:25 Pulse 99 MON; Pulse Ox 97% ; cf2 20:29 Pulse 100 MON; cf2 20:31 Pulse 92 MON; Pulse Ox 96% ; cf2 20:33 BP 151 / 78 (auto/); cf2 20:34 Pulse 90 MON; Pulse Ox 95% ; cf2 20:48 BP 150 / 74 (auto/); cf2 20:49 Pulse 89 MON; Pulse Ox 94% ; cf2 21:03 BP 143 / 71 (auto/); cf2 21:04 Pulse 84 MON; Pulse Ox 90% ; cf2 21:18 BP 154 / 80 (auto/); cf2 21:19 Pulse 97 MON; Pulse Ox 98% ; cf2 21:33 Weight 117.93 kg / 259.99 lbs (R); sls1 21:35 Pulse 101 MON; cf2 21:35 BP 159 / 83 (auto/); cf2 21:36 Pulse 98 MON; cf2 21:37 Pulse 96 MON; Pulse Ox 94% ; cf2 21:42 BP 131 / 85 (auto/); cf2 21:43 Pulse 99 MON; Pulse Ox 96% ; cf2 21:46 Pulse 97 MON; Pulse Ox 95% ; cf2 21:46 BP 136 / 76 (auto/); cf2 21:51 Pulse 93 MON; Pulse Ox 96% ; cf2 21:51 BP 140 / 71 (auto/); cf2 21:56 Pulse 97 MON; Pulse Ox 97% ; cf2 21:56 BP 133 / 71 (auto/); cf2 22:01 Pulse 88 MON; Pulse Ox 96% ; cf2 22:01 BP 107 / 54 (auto/); cf2 22:06 Pulse 97 MON; Pulse Ox 97% ; cf2 22:06 BP 111 / 75 (auto/); cf2 22:11 Pulse 83 MON; Pulse Ox 95% ; cf2 22:11 BP 108 / 56 (auto/); cf2 22:16 Pulse 82 MON; Pulse Ox 96% ; cf2 22:16 BP 101 / 57 (auto/); cf2 22:22 BP 103 / 55 (auto/); cf2 22:23 Pulse 81 MON; Pulse Ox 96% ; cf2 22:26 Pulse 82 MON; Pulse Ox 96% ; cf2 22:26 BP 96 / 51 (auto/); cf2 22:31 Pulse 81 MON; Pulse Ox 96% ; cf2 22:31 BP 103 / 58 (auto/); cf2 22:36 Pulse 80 MON; Pulse Ox 96% ; cf2 22:36 BP 103 / 59 (auto/); cf2 22:41 Pulse 80 MON; Pulse Ox 96% ; cf2 22:41 BP 105 / 56 (auto/); cf2 22:46 Pulse 79 MON; Pulse Ox 96% ; cf2 22:46 BP 109 / 56 (auto/); cf2 22:51 Pulse 85 MON; Pulse Ox 96% ; cf2 22:51 BP 119 / 57 (auto/); cf2 22:56 Pulse 74 MON; Pulse Ox 96% ; cf2 22:56 BP 118 / 58 (auto/); cf2 23:01 Pulse 75 MON; Pulse Ox 97% ; cf2 23:01 BP 110 / 57 (auto/); cf2 23:06 Pulse 76 MON; Pulse Ox 97% ; cf2 23:06 BP 107 / 58 (auto/); cf2 23:11 BP 108 / 58 (auto/); cf2 23:11 Pulse 77 MON; Pulse Ox 96% ; cf2 23:15 Pulse 77 MON; Resp 16; Pulse Ox 96% on 50% FiO2 ETT vent; js15 23:16 BP 107 / 59 (auto/); sls1 23:25 Pulse 75 MON; Pulse Ox 96% ; sls1 23:26 BP 114 / 63 (auto/); sls1 23:30 Pulse 73 MON; Pulse Ox 96% ; sls1 23:31 BP 114 / 63 (auto/); sls1 23:35 Pulse 71 MON; Pulse Ox 97% ; sls1 23:36 BP 115 / 65 (auto/); sls1 23:40 Pulse 71 MON; Pulse Ox 97% ; sls1 23:41 BP 112 / 66 (auto/); sls1 23:45 Pulse 71 MON; Pulse Ox 97% ; sls1 23:46 BP 115 / 67 (auto/); sls1 23:50 Pulse 70 MON; Pulse Ox 97% ; sls1 23:51 BP 116 / 67 (auto/); sls1 23:55 Pulse 70 MON; Pulse Ox 98% ; sls1 23:56 BP 117 / 68 (auto/); sls1 05/24 00:12 BP 120 / 69 (auto/); sls1 00:12 Pulse 68 MON; Pulse Ox 98% ; sls1 00:22 BP 121 / 71 (auto/); sls1 00:22 Pulse 68 MON; Pulse Ox 98% ; sls1 00:31 Pulse 77 MON; Pulse Ox 96% ; sls1 00:32 BP 138 / 80 (auto/); sls1 00:42 BP 141 / 84 (auto/); sls1 00:45 Pulse 76 MON; Pulse Ox 97% ; sls1 00:52 BP 130 / 76 (auto/); sls1 00:53 Pulse 74 MON; Pulse Ox 93% ; sls1 01:02 BP 120 / 64 (auto/); js15 01:02 Pulse 72 MON; Pulse Ox 94% ; js15 01:12 BP 111 / 61 (auto/); js15 01:13 Pulse 69 MON; Resp 16; Temp 97.9(R); Pulse Ox 94% on 50% FiO2 ETT vent; js15 Procedures: 05/23 22:49 Intubation: Ventilated with 100% NRB prior to procedure. Intubated orally using # 3 cs11 Mitchell blade with 7.0 Fr. ETT. was successful on first attempt. Ventilated with ventilator. Cricoid pressure applied during procedure. Placement verified by CXR, CO2 detector w/ + color change, auscultating bilateral breath sounds, O2 saturation after procedure was 99 %. Patient tolerated well. MDM: 19:44 IV Saline Lock ordered. cs11 19:44 Dexamethasone 12 mg IV at bolus once ordered. cs11 19:44 Racepinephrine Solution 0.5 ml Inhalation once over 15 mins; dilute in 3 mL saline and cs11 administer via nebulizer over 15 minutes ordered. 19:44 Call Respiratory ordered. cs11 19:44 -Blood Culture (Adults Only), peripheral from different site, or from device/port/PICC cs11 etc. if present ordered. 19:45 CBC with Diff Ordered. EDMS 19:45 MED Profile Ordered. EDMS 19:45 -Blood Culture Ordered. EDMS 19:45 Soft Tissue Neck Ordered. EDMS 19:45 Chest, 1 View Ordered. EDMS 19:46 Call Respiratory complete. jlm 19:51 -Blood Culture (Adults Only), peripheral from different site, or from device/port/PICC tmm1 etc. if present complete. 19:52 BLOOD CULTURES Ordered. EDMS 20:02 CT Neck With Contrast Ordered. EDMS 20:56 CBC with Diff Reviewed. cs11 20:56 Chest, 1 View Reviewed. cs11 20:58 levofloxacin 500 mg IVPB once over 60 mins ordered. cs11 20:58 Clindamycin 900 mg IVPB once over 30 mins; dilute in 50mL of NS or D5W ordered. cs11 21:06 Financial registration complete. zo 21:11 [facility] Payment Agreement was scanned into [employer] and attached to record. zo 21:28 Ventilator settings as per RT ordered. bb3 21:29 Call Respiratory ordered. cs11 21:29 Call Respiratory complete. tmm1 21:30 Chest, 1 View Ordered. EDMS 21:30 -Arterial Blood Gas Ordered. EDMS 21:37 BED REQUEST+ADM ordered. EDMS 21:40 MED Profile Reviewed. cs11 21:40 CT Neck With Contrast Reviewed. cs11 21:47 Misc. Nursing Order ordered. cs11 22:04 Versed - Midazolam (PF) 5 mg IVP once ordered. cf2 22:04 Versed 5 mg IM once ordered. cf2 22:04 Versed - Midazolam (PF) 5 mg IVP once ordered. cf2 22:04 Versed - Midazolam (PF) 10 mg IVP every 10 minutes ordered. cf2 22:06 Versed - Midazolam (PF) 10 mg IVP once ordered. cf2 22:09 Versed - Midazolam (PF) 5 mg IVP once ordered. cf2 22:09 Versed - Midazolam (PF) 5 mg IVP once ordered. cf2 22:46 -Arterial Blood Gas Ordered. EDMS 22:55 Versed - Midazolam (PF) 10 mg IVP once ordered. cf2 22:59 Admission / Observation Status ordered. EDMS 23:00 NPO DIET ordered. EDMS 23:01 CRITICAL CARE PROFILE Ordered. EDMS 23:01 MAGNESIUM LEVEL Ordered. EDMS 23:01 CBC WITH DIFFERENTIAL Ordered. EDMS 23:03 Versed - Midazolam (PF) 10 mg IVP once ordered. cf2 23:06 diprovan 200 mg IV at 40 mcg/kg/min continuous ordered. cf2 23:13 VENTILATOR SETTINGS ordered. EDMS 23:13 PORTABLE CHEST X-RAY Ordered. EDMS 23:13 PORTABLE CHEST X-RAY Ordered. EDMS 23:13 PORTABLE CHEST X-RAY Ordered. EDMS 23:13 PORTABLE CHEST X-RAY Ordered. EDMS 23:13 PORTABLE CHEST X-RAY Ordered. EDMS 23:13 PORTABLE CHEST X-RAY Ordered. EDMS 23:13 PORTABLE CHEST X-RAY Ordered. EDMS 23:13 PORTABLE CHEST X-RAY Ordered. EDMS 23:18 Etomidate 20 mg IVP once ordered. cs11 23:18 Succinylcholine - Quelicin (1mg/kg) 100 mg IVP once ordered. cs11 23:20 ARTERIAL BLOOD GAS Ordered. EDMS 23:21 -Arterial Blood Gas Reviewed. cs11 23:21 -Arterial Blood Gas Reviewed. cs11 05/24 00:11 Versed - Midazolam (PF) 10 mg IVP once ordered. cf2 00:52 Midazolam 2 mg IVP once ordered. sls1 Administered Medications: Discontinued: Dexamethasone 12 mg IV at bolus once Discontinued: levofloxacin 500 mg IVPB once over 60 mins Discontinued: Clindamycin 900 mg IVPB once over 30 mins; dilute in 50mL of NS or D5W 05/23 19:50 Drug: Dexamethasone 12 mg [dexamethasone 4 mg/mL injection solution] Route: IV; Rate: cf2 bolus; Site: left antecubital; 05/24 01:16 Follow up: Response: No significant change. cf2 05/23 19:50 Drug: Racepinephrine 0.5 ml [racepinephrine 2.25 % solution for nebulization (0.5 mL)] rs5 Route: Inhalation; Infused Over: 15 mins; 21:00 Drug: Clindamycin 900 mg [clindamycin 600 mg/50 mL in 5 % dextrose intravenous cf2 piggyback] Route: IVPB; Infused Over: 30 mins; Site: left antecubital; 21:21 Drug: Etomidate 20 mg [etomidate 2 mg/mL intravenous solution (10 mL)] Route: IVP; af2 Site: right antecubital; 05/24 01:13 Follow up: Response: No significant change. cf2 05/23 21:21 Drug: Succinylcholine - Quelicin (1mg/kg) 100 mg [Quelicin 20 mg/mL injection solution af2 (5 mL)] Route: IVP; Site: right antecubital; 05/24 01:13 Follow up: Response: No significant change. cf2 05/23 21:30 Drug: levofloxacin 500 mg [levofloxacin 500 mg/100 mL in 5 % dextrose intravenous cf2 piggyback] Route: IVPB; Infused Over: 60 mins; Site: left antecubital; 05/24 01:16 Follow up: Response: No significant change. cf2 01:16 Follow up: Response: No significant change. cf2 05/23 21:30 Drug: diprovan 200 mg Route: IV; Rate: 40 mcg/kg/min; Site: left antecubital; cf2 05/24 01:13 Follow up: Response: No Adverse Reaction cf2 05/23 21:35 Drug: Versed - Midazolam (PF) 5 mg [midazolam (PF) 5 mg/mL injection solution (1 mL)] cf2 Route: IVP; Site: left antecubital; 05/24 01:15 Follow up: Response: No significant change. cf2 05/23 21:40 Drug: Versed - Midazolam (PF) 5 mg [midazolam (PF) 5 mg/mL injection solution (1 mL)] cf2 Route: IVP; Site: left antecubital; 05/24 01:14 Follow up: Response: No significant change. cf2 05/23 21:45 Drug: Versed - Midazolam (PF) 10 mg [midazolam (PF) 5 mg/mL injection solution (2 mL)] cf2 Route: IVP; Site: left antecubital; 05/24 01:14 Follow up: Response: No significant change. cf2 05/23 21:55 Drug: Versed - Midazolam (PF) 10 mg [midazolam (PF) 5 mg/mL injection solution (2 mL)] cf2 Route: IVP; Site: left antecubital; 05/24 01:15 Follow up: Response: No significant change. cf2 05/23 22:05 Not Given (Duplicate Order): Versed 5 mg IM once cf2 22:10 Drug: Versed - Midazolam (PF) 5 mg [midazolam (PF) 5 mg/mL injection solution (1 mL)] cf2 Route: IVP; Site: left antecubital; 05/24 01:14 Follow up: Response: No significant change. cf2 05/23 22:10 Drug: Versed - Midazolam (PF) 5 mg [midazolam (PF) 5 mg/mL injection solution (1 mL)] cf2 Route: IVP; Site: left antecubital; 05/24 01:13 Follow up: Response: No significant change. cf2 05/23 22:55 Drug: Versed - Midazolam (PF) 10 mg [midazolam (PF) 5 mg/mL injection solution (2 mL)] cf2 Route: IVP; Site: left antecubital; 05/24 01:14 Follow up: Response: No Adverse Reaction cf2 00:11 Not Given (Duplicate Order): Versed - Midazolam (PF) 10 mg IVP once cf2 00:35 Drug: Midazolam 2 mg [midazolam 1 mg/mL injection solution (2 mL)] Route: IVP; Site: [facility] left antecubital; Critical Care Time: 05/23 22:49 Critical care time: Bedside Care: 120 minutes. Total time: 120 minutes cs11 Signatures: Dispatcher [employer] EDMS Idris Amaya Brad bb3 Hortencia Rossi, RN RN sls1 Gaston Vargas DO DO cs11 McLear, Daisy, RACE RELATIONS PROFESSOR RACE RELATIONS PROFESSOR tmm1 Nicki Bautista, Logistics Account Manager Unit jlm Linda GrullonRN RN nn1 Loree Aldana,RN RN cf2 Reinaldo Velasquez RN RN sa Spurling, Richard RT rs5 Fadia Egan RN af2 The chart was reviewed and I authenticate all verbal orders and agree with the evaluation and treatment provided.Attachments: 21:11 [facility] Payment Agreement zo MTDD
[2016-05-24] MEDS: MIDAZOLAM INJ 2 MG/2 ML VIAL (J2250) IV PRN ×5 (02:24→19:19)
[2016-05-24] MEDS: HumaLOG INSULIN (NovoLOG) PER UNIT SC SCH ×5 (03:04→23:30)
[2016-05-24] MEDS: PANTOPRAZOLE 40MG INJ (PROTONIX) (C9113) IV SCH ×2 (03:04→21:31)
[2016-05-24] MEDS: IPRATROPIUM 0.5MG/ALBUTEROL 2.5MG INH SOL UD 3ML (DUONEB)(J7620) NEB SCH ×6 (03:30→23:42)
[2016-05-24] MEDS: HEPARIN SOD (PORCINE) 5000 UNITS/ML VIAL SC SCH ×3 (05:31→21:31)
[2016-05-24] MEDS: PROPOFOL 1,000 MG in APPROPRIATE DILUENT 1 EA IV SCH ×8 (05:31→23:03)
[2016-05-24] MEDS: CLINDAMYCIN 900 MG in APPROPRIATE DILUENT 1 EA IV SCH ×3 (05:32→21:31)
--- NOTE | 2016-05-24 05:36 | REP ---
SOFT TISSUE NECK, ONE VIEW: HISTORY: Shortness of breath. The cervical spine is visualized from C1-C5 in the lateral radiograph. There is thickening of the epiglottis and hypopharyngeal soft tissues. There is mild distention of the vahid- and hypopharynx. There is no acute fracture or subluxation. The intervertebral discs are normal in height. IMPRESSION: There is thickening of the epiglottis and hypopharyngeal soft tissue. This is secondary to inflammation or a mass. CT of the neck is recommended for further evaluation. Signed by Baljinder Bess MD 05/24/2016 08:46 A
[2016-05-24 05:42] LABS: BASO % 0.1 % (0.0-1.0); EOS # 0.1 K/mm3 (0.0-0.50); EOS % 0.5 % (0.0-3.0); LARGE UNSTAINED CELL # 0.1 K/mm3 (0.0-0.4); LARGE UNSTAINED CELL % 0.4 % (0.0-4.0); LYMPH # 0.9 K/mm3 (1.5-4.5); LYMPH % 4.4 % (24.0-44.0); MEAN CORPUSCULAR HEMOGLOBIN 32.6 pg (27.0-33.0); MEAN CORPUSCULAR HGB CONC 34.4 g/dl (32.0-36.5); MONO # 0.5 K/mm3 (0.0-0.8); MONO % 2.6 % (0.0-5.0); NEUTROPHILS # 17.9 K/mm3 (1.8-7.7); NEUTROPHILS % 91.9 % (36.0-66.0); PLATELET COUNT, AUTOMATED 297 k/mm3 (150-450); RED CELL DISTRIBUTION WIDTH 12.9 % (11.5-14.5); WHITE BLOOD COUNT 19.4 K/mm3 (4.0-10.0)
[2016-05-24 05:56] LABS: ALBUMIN 3.2 GM/DL (3.2-5.2); ALKALINE PHOSPHATASE 84 U/L (45-117); ALT/SGPT 43 U/L (12-78); ANION GAP 11 MEQ/L (8-16); AST/SGOT 9 U/L (15-37); BILIRUBIN,TOTAL 0.5 MG/DL (0.2-1.0); BLOOD UREA NITROGEN 15 MG/DL (7-18); CALCIUM LEVEL 7.7 MG/DL (8.5-10.1); CARBON DIOXIDE LEVEL 24 MEQ/L (21-32); CHLORIDE LEVEL 109 MEQ/L (98-107); CHOLESTEROL LEVEL 140 MG/DL (< 200); CREATININE FOR GFR 1.04 MG/DL (0.70-1.30); GLOMERULAR FILTRATION RATE > 60.0 (>60); GLUCOSE, FASTING 174 MG/DL (70-105); MAGNESIUM LEVEL 2.4 MG/DL (1.8-2.4); PHOSPHORUS LEVEL 3.4 MG/DL (2.5-4.9); POTASSIUM SERUM 4.3 MEQ/L (3.5-5.1); SODIUM LEVEL 144 MEQ/L (136-145); TOTAL PROTEIN 6.4 GM/DL (6.4-8.2); TRIGLYCERIDES LEVEL 217 MG/DL (<150)
[2016-05-24] MEDS ORDERED: CLINDAMYCIN 900 MG in APPROPRIATE DILUENT 1 EA IV SCH (06:00)
[2016-05-24 06:53] LABS: ABG BASE EXCESS -2.3 (-2.0-2.0); ABG HCO3 23.4 MEQ/L (22.0-26.0); ABG PARTIAL PRESSURE CO2 43.4 mmHg (35.0-45.0); ABG PARTIAL PRESSURE O2 109.3 mmHg (75.0-100.0); ABG STANDARD HCO3 22.6 MEQ/L (22.0-26.0); ABG TOTAL CO2 24.7 MEQ/L (22.0-29.0); ABG pH (ARTERIAL) 7.349 UNITS (7.350-7.450)
--- NOTE | 2016-05-24 07:01 | HPE ---
DATE OF ADMISSION: 05/23/2016 NOTE: Asked by the emergency department to emergently evaluate Mr. Ki Chaney for acute epiglottis with obstruction leading to mechanical ventilation. Mr. Chaney is a 46-year-old white male whose past medical history is only significant for tobacco usage who apparently felt unwell for the past 1-2 days. This morning, he had a sore throat and over the course of the day, began to have difficulty handling his secretions. He felt short of breath. He went to an urgent care who evaluated him and had him transferred by ambulance to the emergency department. In the emergency department, he was sitting forward and drooling. He was given 12 mg of Decadron as well as an epinephrine nebulization. Evaluation of the neck showed findings consistent with epiglottitis. Ear, nose and throat (ENT) was notified. He was then successfully intubated. The largest tube felt to able to be safely passed was a 7-0 tube. Because of his penicillin allergy and concern of possible cross reactivity with cephalosporins, he was given Levaquin and clindamycin in the emergency department. When I arrived, he was mildly tachypneic but appeared comfortable on the ventilator. He was sedated. ALLERGIES: PENICILLINS. I do not know what happens with those medications. MEDICATIONS: None. PHYSICAL EXAMINATION: GENERAL: Mr. Chaney is lying in bed synchronous with the vent. He is mildly diaphoretic on his face. Vital signs: Blood pressure 163/55, pulse 73, respiratory rate 18-20s. SpO2 96% on FiO2 of 0.5. HEENT: Anicteric, pupils 2 mm and reactive. Nares: Patent bilaterally. Moist mucosa. Oropharynx: ET tube in place. NECK: Supple, without jugular venous distention (JVD) and without thyromegaly or masses, trachea is midline. LYMPHS: Without cervical or supraclavicular lymphadenopathy. LUNGS: Symmetric excursion, good air entry. No wheeze, rhonchi or crackle appreciated on tidal excursion. Normal I:E. No accessory muscle usage or retractions. CARDIOVASCULAR: Regular rate and rhythm with normal S1, S2. No murmur, rub or gallop appreciated. ABDOMEN: Diminished but present bowel sounds, soft, nondistended, no hepatosplenomegaly or masses appreciated. EXTREMITIES: Warm and well perfused, without clubbing, cyanosis or edema. Palpable pedal pulses bilaterally. SKIN: No visualized rashes on extremities, trunk or face. LABORATORY DATA: CBC showed a hemoglobin of 17.4, hematocrit 49.5, platelet count 343,000, white blood count 12,500 with differential of 87% neutrophils, 8% lymphocytes, 4% monocytes. Chemistry showed a sodium 142, potassium 3.7, chloride 108, bicarbonate 24, anion gap 10, BUN 13, creatinine 0.9, glucose 178, calcium 8.3. Arterial blood gas on pressure control at a rate of 16, PEEP of 10 and a pressure support of 25, 0.9 I-time, and FiO2 of 0.5 was 7.21/51/95 with a measured saturation of 96% and a base excess of -8.7. I reviewed his first chest x-ray which showed normal appearing cardiac silhouette and pulmonary vascular shadows. Normal appearing mediastinal and hilar regions. No acute infiltrates. Normal inflation. I reviewed his chest x-ray post intubation which was a lordotic view but did not appear significantly changed. ET tube appeared in appropriate position. I reviewed the CT report of his neck which showed hypodense soft tissue in the right posterior base of the epiglottic that was likely inflammatory in nature. No discrete abscess or mass was identified. IMPRESSION: 1. Acute epiglottitis with airway obstruction leading to mechanical ventilation. Etiology for the epiglottitis is likely bacterial versus viral. No evidence of abscess at this time per CT. 2. Possible sleep apnea based on body habitus. 3. Tobacco usage, ongoing at time of admission. RECOMMENDATIONS: 1. Because of the high risk for possible catastrophic event should he self extubate, at least for the first 12-24 hours, we will keep him at a Gomes 4-5. 2. He has been difficult to sedate in the emergency department by propofol alone so we use propofol and Versed drip but I will cap the drip at 4 mg/hr and use boluses above that if needed. 3. I have asked that no sedation holiday be done tomorrow unless a physician is present. 4. Given his smoking history and risk for bronchorrhea after sudden cessation, I have asked to make certain that he has humidification on the ventilator. 5. Will also use DuoNebs every 4 hours with every 2 hour albuterol nebulizations if needed. 6. Will continue on clindamycin and Levaquin for the immediate future. 7. Appreciate ENT input and will speak with them tomorrow regarding the plan for when they want to re-evaluate the upper airway appearance. CRITICAL CARE TIME: 55 minutes, not including procedure time. RAVIN
[2016-05-24] MEDS ORDERED: dexameTHASONE 4 MG/ML 1ML VIAL (J1100) IV SCH (08:00)
[2016-05-24] MEDS: CHLORHEXIDINE GLUCONATE 0.12 % 15ML UDC (PERIDEX ORAL RINSE) MT SCH ×2 (08:30→21:30)
[2016-05-24] MEDS: LevoFLOXacin IV 750 MG in APPROPRIATE DILUENT 1 EA IV SCH (11:36)
[2016-05-24] MEDS: MORPHINE 2 MG/ML 1ML SYRINGE IV PRN (12:24)
--- NOTE | 2016-05-24 12:24 | CCN ---
DATE: 05/24/2016 Mr. Chaney remains critically ill with acute epiglottitis with airway obstruction leading to mechanical ventilation. He is requiring both a propofol drip and a Versed drip to keep him sedated. A high level of sedation is targeted because if he self extubated it would likely be catastrophic. 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 He remains with a good cough with suctioning. Hemodynamically acceptable overnight. PHYSICAL EXAMINATION: GENERAL: Mr. Chaney is lying in bed in no acute distress. He is synchronous with the ventilator. VITAL SIGNS: Temperature 97.7 with a T-max of 98, pulse 73, respiratory rate 20 , blood pressure 104/57, with a MAP of 73, SpO2 94% on FiO2 of 0.4. HEENT: Anicteric. Pupils 2-3 mm and reactive. Nares: Tape covering them although it is an OG tube in place. What is seen appears to have moist mucosa. Oropharynx: Moist mucosa. ET tube and OG tube in place. NECK: Supple. Without jugular venous distention. Without thyromegaly or masses. Trachea is midline. LYMPHS: Without cervical or supraclavicular lymphadenopathy. LUNGS: Symmetric excursion, good air entry. No wheeze, rhonchi or crackle on tidal excursion. Normal I:E. No accessory muscle use or retractions. CARDIOVASCULAR: Regular rate and rhythm with a normal S1, S2. No murmur, rub or gallop appreciated. ABDOMEN: Diminished, but present bowel sounds. Soft. Nondistended. No hepatosplenomegaly or masses appreciated. EXTREMITIES: Warm and well perfused. Without clubbing, cyanosis or edema. Palpable pedal pulses bilaterally. LABORATORY DATA: CBC from this morning showed a hemoglobin of 15.8, hematocrit 46, platelet count 297,000, WBC 19,400, with a differential of 92% neutrophils, 4% lymphocytes and 3% monocytes. Chemistry showed a sodium of 144, potassium 4.3, chloride 109, bicarbonate 24, anion gap 11, BUN 14, creatinine 1.0, glucose 174, calcium 7.7, phosphorus 3.4, magnesium 2.4, total bilirubin 0.5, AST 9, ALT 43, alkaline phosphatase 84, LDH 141, CK 81, total protein 6.4, albumin 3.2. Arterial blood gas this morning on [facility] with a tidal volume of 425, rate of 16, PEEP of 8, and FiO2 of 0.4 was 7.35/43/109 with a measured saturation of 98% and a base excess of -2.3. I reviewed his chest x-ray from earlier today. X-ray showed normal appearing cardiac silhouette, pulmonary vascular shadows. Endotracheal tube appears in reasonable position at about the level of the aortic knob. Costophrenic angles remain sharp. Slight increase in interstitial infiltrates. IMPRESSION: 1. Acute epiglottitis with airway occlusion leading to mechanical ventilation. Again, differential is predominantly bacterial versus viral. 2. Hyperglycemia. Some of this may be secondary to being on dexamethasone. It is possible he has underlying nondiagnosed diabetes mellitus as well. 3. Probable obstructive sleep apnea based on body habitus. Later this evening I was able to obtain history from his significant other who states that he is a significant snorer and has periods of snorting/gasping. 4. Tobacco usage, ongoing at the time of admission. Per his significant other, he had smoked about a pack a day up until a month ago when he cut down to about a half a day after the of his grandchild. 5. Infectious disease (ID). On clindamycin and Levaquin. 6. Deep vein thrombosis and stress ulcer prophylaxis in place. 7. Nutrition. Currently nothing by mouth (n.p.o.). RECOMMENDATIONS: 1. Will continue with mechanical ventilation as it is. 2. Will continue with sedation to a Gomes level of 4 to 5. Hopefully, over the next 24 hours, this can be loosened. 3. We will not do a sedation holiday today as extubation would be catastrophic. Hopefully we will be able to do one tomorrow. 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 4. Will check an A1c as there is concern that he may have underlying diabetes mellitus. 5. Continue with sliding scale insulin. 6. Continue with antibiotics and dexamethasone. 7. Will contact ENT regarding when it will be appropriate to reevaluate his upper airway. 8. We will start tube feeds as anticipate that he may require mechanical ventilation for several more days. Critical care time 40 minutes, not including procedures. RAVIN
[2016-05-24] MEDS: D5W/0.45% SODIUM CHLORIDE 1,000 ML IV SCH (13:29)
[2016-05-24] MEDS: MIDAZOLAM HCL 100 MG in D5W 80 ML IV SCH ×3 (23:32)
[2016-05-25] VITALS (28 sets, daily range): BP systolic 96–134; BP diastolic 52–77
[2016-05-25] MEDS: PROPOFOL 1,000 MG in APPROPRIATE DILUENT 1 EA IV SCH ×13 (00:45→22:48)
[2016-05-25] MEDS: IPRATROPIUM 0.5MG/ALBUTEROL 2.5MG INH SOL UD 3ML (DUONEB)(J7620) NEB SCH ×6 (04:34→23:18)
[2016-05-25] MEDS: MIDAZOLAM INJ 2 MG/2 ML VIAL (J2250) IV PRN ×2 (05:02→13:19)
[2016-05-25] MEDS: CLINDAMYCIN 900 MG in APPROPRIATE DILUENT 1 EA IV SCH ×3 (05:03→21:09)
[2016-05-25] MEDS: HEPARIN SOD (PORCINE) 5000 UNITS/ML VIAL SC SCH ×3 (05:03→21:09)
[2016-05-25] MEDS: HumaLOG INSULIN (NovoLOG) PER UNIT SC SCH ×4 (05:37→23:38)
[2016-05-25 05:59] LABS: BASO % 0.3 % (0.0-1.0); EOS # 0.1 K/mm3 (0.0-0.50); EOS % 0.5 % (0.0-3.0); LARGE UNSTAINED CELL # 0.1 K/mm3 (0.0-0.4); LARGE UNSTAINED CELL % 0.9 % (0.0-4.0); LYMPH # 1.6 K/mm3 (1.5-4.5); LYMPH % 12.1 % (24.0-44.0); MEAN CORPUSCULAR HEMOGLOBIN 32.9 pg (27.0-33.0); MEAN CORPUSCULAR HGB CONC 34.9 g/dl (32.0-36.5); MEAN CORPUSCULAR VOLUME 94.1 fl (80.0-96.0); MONO # 0.5 K/mm3 (0.0-0.8); MONO % 4.1 % (0.0-5.0); NEUTROPHILS # 10.6 K/mm3 (1.8-7.7); NEUTROPHILS % 82.1 % (36.0-66.0); PLATELET COUNT, AUTOMATED 274 k/mm3 (150-450); RED CELL DISTRIBUTION WIDTH 13.2 % (11.5-14.5); WHITE BLOOD COUNT 12.8 K/mm3 (4.0-10.0)
[2016-05-25 06:13] LABS: ALBUMIN 2.9 GM/DL (3.2-5.2); ALBUMIN/GLOBULIN RATIO 0.94 (1.00-1.93); ALKALINE PHOSPHATASE 72 U/L (45-117); ALT/SGPT 36 U/L (12-78); AST/SGOT 15 U/L (15-37); BILIRUBIN,TOTAL 0.2 MG/DL (0.2-1.0); BLOOD UREA NITROGEN 14 MG/DL (7-18); CALCIUM LEVEL 7.6 MG/DL (8.5-10.1); CARBON DIOXIDE LEVEL 27 MEQ/L (21-32); CHLORIDE LEVEL 106 MEQ/L (98-107); CHOLESTEROL LEVEL 138 MG/DL (< 200); CREATININE FOR GFR 0.95 MG/DL (0.70-1.30); GLOMERULAR FILTRATION RATE > 60.0 (>60); GLUCOSE, FASTING 166 MG/DL (70-105); MAGNESIUM LEVEL 2.8 MG/DL (1.8-2.4); PHOSPHORUS LEVEL 3.4 MG/DL (2.5-4.9); TRIGLYCERIDES LEVEL 330 MG/DL (<150)
[2016-05-25 06:30] LABS: ANION GAP 10 MEQ/L (8-16); POTASSIUM SERUM 3.5 MEQ/L (3.5-5.1); SODIUM LEVEL 143 MEQ/L (136-145)
--- NOTE | 2016-05-25 08:04 | REP ---
Clinical: Status post intubation. Comparison: 05/23/2016. Findings: Endotracheal tube approximately 4 cm above the patricia. Nasogastric tube courses below the left hemidiaphragm. The mediastinum and cardiac silhouette are normal. Increased pulmonary vascular markings and interstitial prominence cannot be excluded. No discrete focal consolidation, effusion, or pneumothorax. Skeletal structures intact. Impression: Endotracheal tube and nasogastric tube in satisfactory position. Limited examination cannot exclude interstitial infiltrates as well as pulmonary venous congestion. Signed by Jevon Del Real MD 05/24/2016 07:42 A
[2016-05-25] MEDS: CHLORHEXIDINE GLUCONATE 0.12 % 15ML UDC (PERIDEX ORAL RINSE) MT SCH ×2 (08:43→21:08)
--- NOTE | 2016-05-25 09:36 | REP ---
Portable chest x-ray: Single view. History: Intubated patient. Findings: The lungs are well inflated and free of infiltrate. Pleural angles are sharp. Heart size is normal. Pulmonary vasculature is not increased. Endotracheal tube is seen in good position at the level of the proximal clavicles. An NG tube enters the left upper quadrant of the abdomen. Impression: Endotracheal and nasogastric tubes in good position. Otherwise no acute disease. Signed by Antonio Kendall MD 05/25/2016 09:40 A
[2016-05-25] MEDS: LevoFLOXacin IV 750 MG in APPROPRIATE DILUENT 1 EA IV SCH (11:50)
--- NOTE | 2016-05-25 12:38 | CCN ---
DATE: 05/25/2016 Mr. Chaney remains critically ill with acute respiratory failure secondary to epiglottitis with airway obstruction. He remains sedated. When he has been lightened, he makes purposeful movements and tries to grab his endotracheal tube. No significant secretions. He is tolerating tube feeds. He has remained hemodynamically acceptable with a MAP greater than 65. He is requiring increasing amounts of sedation and is using both propofol drip and Versed drip. OBJECTIVE: PHYSICAL EXAMINATION: GENERAL: Mr. Chaney is intubated and reasonably synchronous with the ventilator. VITAL SIGNS: Temperature 97.7 with a T-max of 99. Pulse 64. Respiratory rate 22 to 23. Blood pressure 114/67 with a MAP of 83. SpO2 97% on FiO2 of 0.4. HEENT: Anicteric. Pupils 3 mm and reactive. Nares: Patent bilaterally. Moist mucosa. Oropharynx: ET tube and OG tube in place. NECK: Supple. Without jugular venous distention, without thyromegaly or masses. Trachea is midline. LYMPHS: Without cervical or supraclavicular adenopathy. LUNGS: Symmetric excursion. Good air entry. No wheeze, rhonchi or crackle on tidal excursion. Normal I:E. No accessory muscle usage or retractions. CARDIOVASCULAR: Regular rate and rhythm with a normal S1, S2. No murmur, rub or gallop appreciated. ABDOMEN: Positive, but diminished bowel sounds. Soft. Nondistended. No hepatosplenomegaly. No masses appreciated. EXTREMITIES: Without clubbing, cyanosis or edema. LABORATORY DATA: CBC shows a hemoglobin of 14.4, hematocrit 41.4 and platelet count 274,000, WBC 12,800, with a differential of 82% neutrophils 12% lymphocytes and 4% monocytes. Electrolytes with sodium 143, potassium 3.5, chloride 106, bicarbonate 27, anion gap 10, BUN 14, creatinine 1.0, glucose 166, hemoglobin A1c 6.0, calcium 7.6, phosphorus 3.4, magnesium 2.8. Total bilirubin 0.2, AST 15, ALT 36, and alkaline phosphatase 72, LDH 170, CK 177, total protein 6.0, albumin 2.9. Yesterday's ins and outs were 2675 in and 920 out, making a positive of 1755. I reviewed his chest x-ray from earlier today. That x-ray showed normal appearing cardiac silhouette, pulmonary vascular shadows. Normal appearing mediastinal region. No acute infiltrates. The endotracheal tube per the report is in good position, but per my review, appears a bit high. The OG tube is in good position. IMPRESSIONS: 1. Epiglottitis with airway obstruction resulting in mechanical ventilation. 2. Hyperglycemia and insulin drip. Normal hemoglobin A1c. 3. Probable obstructive sleep apnea based on body habitus. 3. Tobacco usage ongoing at the time of admission. 4. Infectious disease. On clindamycin and Levaquin. 5. Deep vein thrombosis prophylaxis in place. 6. Nutrition. Tolerating tube feeds. RECOMMENDATION: 1. Continue with mechanical ventilation. 2. Will lighten the level of sedation to Gomes 3 to 4. Nonetheless, I anticipate he is still going to require significant amounts of sedatives. 3. Continue sliding scale insulin. 4. Continue antibiotics. Dexamethasone was discontinued yesterday at the recommendation of ENT. 5. When I spoke with ENT yesterday, their plan is to consider going to the operating room tomorrow to reevaluate the upper airway and consider extubation. 6. If he is extubated, will anticipate him requiring noninvasive mechanical ventilation, at least for the short term as I am very suspicious of underlying obstructive sleep apnea. Critical care time 35 minutes, not including procedure time. edited: 05/25/2016 1325 tkf RAVIN
[2016-05-25] MEDS: MORPHINE 2 MG/ML 1ML SYRINGE IV PRN (13:19)
[2016-05-25] MEDS: MIDAZOLAM HCL 100 MG in D5W 80 ML IV SCH (23:39)
[2016-05-25] MEDS: PANTOPRAZOLE 40MG INJ (PROTONIX) (C9113) IV SCH (23:39)
[2016-05-26] VITALS (24 sets, daily range): BP systolic 97–149; BP diastolic 47–77
[2016-05-26] MEDS: PROPOFOL 1,000 MG in APPROPRIATE DILUENT 1 EA IV SCH ×8 (00:12→15:29)
--- NOTE | 2016-05-26 02:47 | EDDOCDS ---
Physician Documentation [facility] Name: Ki Chaney Age: 46 yrs Sex: Male : 1970 Arrival Date: 05/23/2016 Time: 19:35 Bed Admit Hold Private MD: No Pcp Disposition: 05/23 22:49 Critical Care:. cs11 Disposition: 05/23/16 21:45 Hospitalization ordered by Zafar Pedersen for Inpatient Admission. Preliminary diagnosis is Acute epiglottitis with obstruction. - Bed requested for M ICU. - Status is Inpatient Admission. sls1 - Condition is Stable. - Problem is new. - Symptoms have improved. Historical: - Allergies: PENICILLINS; - Home Meds: 1. none - PMHx: none; - PSHx: Lithotripsy; - Social history: Smoking status: Patient uses tobacco products, heavy tobacco smoker. No barriers to communication noted, The patient speaks fluent Persian, Speaks appropriately for age. - Family history: Not pertinent. - : The pt / caregiver states he / she is not on anticoagulants. Home medication list is obtained from the patient. - Exposure Risk Screening:: None identified. Vital Signs: 19:20 Pulse 107 MON; Pulse Ox 93% ; cf2 19:24 Pulse 100 MON; Pulse Ox 93% ; cf2 19:27 Pulse 99 MON; Pulse Ox 94% ; cf2 19:29 Pulse 100 MON; Pulse Ox 94% ; cf2 19:39 BP 151 / 87 (auto/); cf2 19:41 Pulse 89 MON; Pulse Ox 98% ; cf2 19:44 Pulse 89 MON; Pulse Ox 98% ; cf2 19:48 Pulse 85 MON; Pulse Ox 98% ; cf2 19:48 BP 147 / 84 (auto/); cf2 19:49 Pulse 86 MON; Pulse Ox 98% ; cf2 19:53 Pulse 90 MON; Pulse Ox 97% ; cf2 19:56 Pulse 89 MON; Pulse Ox 97% ; cf2 20:00 Pulse 91 MON; Pulse Ox 97% ; cf2 20:03 Pulse 87 MON; Pulse Ox 97% ; cf2 20:03 BP 158 / 86 (auto/); cf2 20:07 Pulse 88 MON; Pulse Ox 97% ; cf2 20:10 Pulse 87 MON; Pulse Ox 96% ; cf2 20:14 Pulse 90 MON; Pulse Ox 96% ; cf2 20:17 Pulse 100 MON; Pulse Ox 97% ; cf2 20:18 BP 165 / 86 (auto/); cf2 20:19 Pulse 86 MON; Pulse Ox 97% ; cf2 20:23 Pulse 87 MON; Pulse Ox 97% ; cf2 20:25 Pulse 99 MON; Pulse Ox 97% ; cf2 20:29 Pulse 100 MON; cf2 20:31 Pulse 92 MON; Pulse Ox 96% ; cf2 20:33 BP 151 / 78 (auto/); cf2 20:34 Pulse 90 MON; Pulse Ox 95% ; cf2 20:48 BP 150 / 74 (auto/); cf2 20:49 Pulse 89 MON; Pulse Ox 94% ; cf2 21:03 BP 143 / 71 (auto/); cf2 21:04 Pulse 84 MON; Pulse Ox 90% ; cf2 21:18 BP 154 / 80 (auto/); cf2 21:19 Pulse 97 MON; Pulse Ox 98% ; cf2 21:33 Weight 117.93 kg / 259.99 lbs (R); sls1 21:35 Pulse 101 MON; cf2 21:35 BP 159 / 83 (auto/); cf2 21:36 Pulse 98 MON; cf2 21:37 Pulse 96 MON; Pulse Ox 94% ; cf2 21:42 BP 131 / 85 (auto/); cf2 21:43 Pulse 99 MON; Pulse Ox 96% ; cf2 21:46 Pulse 97 MON; Pulse Ox 95% ; cf2 21:46 BP 136 / 76 (auto/); cf2 21:51 Pulse 93 MON; Pulse Ox 96% ; cf2 21:51 BP 140 / 71 (auto/); cf2 21:56 Pulse 97 MON; Pulse Ox 97% ; cf2 21:56 BP 133 / 71 (auto/); cf2 22:01 Pulse 88 MON; Pulse Ox 96% ; cf2 22:01 BP 107 / 54 (auto/); cf2 22:06 Pulse 97 MON; Pulse Ox 97% ; cf2 22:06 BP 111 / 75 (auto/); cf2 22:11 Pulse 83 MON; Pulse Ox 95% ; cf2 22:11 BP 108 / 56 (auto/); cf2 22:16 Pulse 82 MON; Pulse Ox 96% ; cf2 22:16 BP 101 / 57 (auto/); cf2 22:22 BP 103 / 55 (auto/); cf2 22:23 Pulse 81 MON; Pulse Ox 96% ; cf2 22:26 Pulse 82 MON; Pulse Ox 96% ; cf2 22:26 BP 96 / 51 (auto/); cf2 22:31 Pulse 81 MON; Pulse Ox 96% ; cf2 22:31 BP 103 / 58 (auto/); cf2 22:36 Pulse 80 MON; Pulse Ox 96% ; cf2 22:36 BP 103 / 59 (auto/); cf2 22:41 Pulse 80 MON; Pulse Ox 96% ; cf2 22:41 BP 105 / 56 (auto/); cf2 22:46 Pulse 79 MON; Pulse Ox 96% ; cf2 22:46 BP 109 / 56 (auto/); cf2 22:51 Pulse 85 MON; Pulse Ox 96% ; cf2 22:51 BP 119 / 57 (auto/); cf2 22:56 Pulse 74 MON; Pulse Ox 96% ; cf2 22:56 BP 118 / 58 (auto/); cf2 23:01 Pulse 75 MON; Pulse Ox 97% ; cf2 23:01 BP 110 / 57 (auto/); cf2 23:06 Pulse 76 MON; Pulse Ox 97% ; cf2 23:06 BP 107 / 58 (auto/); cf2 23:11 BP 108 / 58 (auto/); cf2 23:11 Pulse 77 MON; Pulse Ox 96% ; cf2 23:15 Pulse 77 MON; Resp 16; Pulse Ox 96% on 50% FiO2 ETT vent; js15 23:16 BP 107 / 59 (auto/); sls1 23:25 Pulse 75 MON; Pulse Ox 96% ; sls1 23:26 BP 114 / 63 (auto/); sls1 23:30 Pulse 73 MON; Pulse Ox 96% ; sls1 23:31 BP 114 / 63 (auto/); sls1 23:35 Pulse 71 MON; Pulse Ox 97% ; sls1 23:36 BP 115 / 65 (auto/); sls1 23:40 Pulse 71 MON; Pulse Ox 97% ; sls1 23:41 BP 112 / 66 (auto/); sls1 23:45 Pulse 71 MON; Pulse Ox 97% ; sls1 23:46 BP 115 / 67 (auto/); sls1 23:50 Pulse 70 MON; Pulse Ox 97% ; sls1 23:51 BP 116 / 67 (auto/); sls1 23:55 Pulse 70 MON; Pulse Ox 98% ; sls1 23:56 BP 117 / 68 (auto/); sls1 05/24 00:12 BP 120 / 69 (auto/); sls1 00:12 Pulse 68 MON; Pulse Ox 98% ; sls1 00:22 BP 121 / 71 (auto/); sls1 00:22 Pulse 68 MON; Pulse Ox 98% ; sls1 00:31 Pulse 77 MON; Pulse Ox 96% ; sls1 00:32 BP 138 / 80 (auto/); sls1 00:42 BP 141 / 84 (auto/); sls1 00:45 Pulse 76 MON; Pulse Ox 97% ; sls1 00:52 BP 130 / 76 (auto/); sls1 00:53 Pulse 74 MON; Pulse Ox 93% ; sls1 01:02 BP 120 / 64 (auto/); js15 01:02 Pulse 72 MON; Pulse Ox 94% ; js15 01:12 BP 111 / 61 (auto/); js15 01:13 Pulse 69 MON; Resp 16; Temp 97.9(R); Pulse Ox 94% on 50% FiO2 ETT vent; js15 Procedures: 05/23 22:49 Intubation: Ventilated with 100% NRB prior to procedure. Intubated orally using # 3 cs11 Mitchell blade with 7.0 Fr. ETT. was successful on first attempt. Ventilated with ventilator. Cricoid pressure applied during procedure. Placement verified by CXR, CO2 detector w/ + color change, auscultating bilateral breath sounds, O2 saturation after procedure was 99 %. Patient tolerated well. MDM: 19:44 IV Saline Lock ordered. cs11 19:44 Dexamethasone 12 mg IV at bolus once ordered. cs11 19:44 Racepinephrine Solution 0.5 ml Inhalation once over 15 mins; dilute in 3 mL saline and cs11 administer via nebulizer over 15 minutes ordered. 19:44 Call Respiratory ordered. cs11 19:44 -Blood Culture (Adults Only), peripheral from different site, or from device/port/PICC cs11 etc. if present ordered. 19:45 CBC with Diff Ordered. EDMS 19:45 MED Profile Ordered. EDMS 19:45 -Blood Culture Ordered. EDMS 19:45 Soft Tissue Neck Ordered. EDMS 19:45 Chest, 1 View Ordered. EDMS 19:46 Call Respiratory complete. jlm 19:51 -Blood Culture (Adults Only), peripheral from different site, or from device/port/PICC tmm1 etc. if present complete. 19:52 BLOOD CULTURES Ordered. EDMS 20:02 CT Neck With Contrast Ordered. EDMS 20:56 CBC with Diff Reviewed. cs11 20:56 Chest, 1 View Reviewed. cs11 20:58 levofloxacin 500 mg IVPB once over 60 mins ordered. cs11 20:58 Clindamycin 900 mg IVPB once over 30 mins; dilute in 50mL of NS or D5W ordered. cs11 21:06 Financial registration complete. zo 21:11 [facility] Payment Agreement was scanned into [employer] and attached to record. zo 21:28 Ventilator settings as per RT ordered. bb3 21:29 Call Respiratory ordered. cs11 21:29 Call Respiratory complete. tmm1 21:30 Chest, 1 View Ordered. EDMS 21:30 -Arterial Blood Gas Ordered. EDMS 21:37 BED REQUEST+ADM ordered. EDMS 21:40 MED Profile Reviewed. cs11 21:40 CT Neck With Contrast Reviewed. cs11 21:47 Misc. Nursing Order ordered. cs11 22:04 Versed - Midazolam (PF) 5 mg IVP once ordered. cf2 22:04 Versed 5 mg IM once ordered. cf2 22:04 Versed - Midazolam (PF) 5 mg IVP once ordered. cf2 22:04 Versed - Midazolam (PF) 10 mg IVP every 10 minutes ordered. cf2 22:06 Versed - Midazolam (PF) 10 mg IVP once ordered. cf2 22:09 Versed - Midazolam (PF) 5 mg IVP once ordered. cf2 22:09 Versed - Midazolam (PF) 5 mg IVP once ordered. cf2 22:46 -Arterial Blood Gas Ordered. EDMS 22:55 Versed - Midazolam (PF) 10 mg IVP once ordered. cf2 22:59 Admission / Observation Status ordered. EDMS 23:00 NPO DIET ordered. EDMS 23:01 CRITICAL CARE PROFILE Ordered. EDMS 23:01 MAGNESIUM LEVEL Ordered. EDMS 23:01 CBC WITH DIFFERENTIAL Ordered. EDMS 23:03 Versed - Midazolam (PF) 10 mg IVP once ordered. cf2 23:06 diprovan 200 mg IV at 40 mcg/kg/min continuous ordered. cf2 23:13 VENTILATOR SETTINGS ordered. EDMS 23:13 PORTABLE CHEST X-RAY Ordered. EDMS 23:13 PORTABLE CHEST X-RAY Ordered. EDMS 23:13 PORTABLE CHEST X-RAY Ordered. EDMS 23:13 PORTABLE CHEST X-RAY Ordered. EDMS 23:13 PORTABLE CHEST X-RAY Ordered. EDMS 23:13 PORTABLE CHEST X-RAY Ordered. EDMS 23:13 PORTABLE CHEST X-RAY Ordered. EDMS 23:13 PORTABLE CHEST X-RAY Ordered. EDMS 23:18 Etomidate 20 mg IVP once ordered. cs11 23:18 Succinylcholine - Quelicin (1mg/kg) 100 mg IVP once ordered. cs11 23:20 ARTERIAL BLOOD GAS Ordered. EDMS 23:21 -Arterial Blood Gas Reviewed. cs11 23:21 -Arterial Blood Gas Reviewed. cs11 05/24 00:11 Versed - Midazolam (PF) 10 mg IVP once ordered. cf2 00:52 Midazolam 2 mg IVP once ordered. sls1 12:08 T-Sheet-- Draft Copy was scanned into [employer] and attached to record. gb Administered Medications: Discontinued: Dexamethasone 12 mg IV at bolus once Discontinued: levofloxacin 500 mg IVPB once over 60 mins Discontinued: Clindamycin 900 mg IVPB once over 30 mins; dilute in 50mL of NS or D5W 05/23 19:50 Drug: Dexamethasone 12 mg [dexamethasone 4 mg/mL injection solution] Route: IV; Rate: cf2 bolus; Site: left antecubital; 05/24 01:16 Follow up: Response: No significant change. cf2 05/23 19:50 Drug: Racepinephrine 0.5 ml [racepinephrine 2.25 % solution for nebulization (0.5 mL)] rs5 Route: Inhalation; Infused Over: 15 mins; 21:00 Drug: Clindamycin 900 mg [clindamycin 600 mg/50 mL in 5 % dextrose intravenous cf2 piggyback] Route: IVPB; Infused Over: 30 mins; Site: left antecubital; 21:21 Drug: Etomidate 20 mg [etomidate 2 mg/mL intravenous solution (10 mL)] Route: IVP; af2 Site: right antecubital; 05/24 01:13 Follow up: Response: No significant change. cf2 05/23 21:21 Drug: Succinylcholine - Quelicin (1mg/kg) 100 mg [Quelicin 20 mg/mL injection solution af2 (5 mL)] Route: IVP; Site: right antecubital; 05/24 01:13 Follow up: Response: No significant change. cf2 05/23 21:30 Drug: levofloxacin 500 mg [levofloxacin 500 mg/100 mL in 5 % dextrose intravenous cf2 piggyback] Route: IVPB; Infused Over: 60 mins; Site: left antecubital; 05/24 01:16 Follow up: Response: No significant change. cf2 01:16 Follow up: Response: No significant change. cf2 05/23 21:30 Drug: diprovan 200 mg Route: IV; Rate: 40 mcg/kg/min; Site: left antecubital; cf2 05/24 01:13 Follow up: Response: No Adverse Reaction cf2 05/23 21:35 Drug: Versed - Midazolam (PF) 5 mg [midazolam (PF) 5 mg/mL injection solution (1 mL)] cf2 Route: IVP; Site: left antecubital; 05/24 01:15 Follow up: Response: No significant change. cf2 05/23 21:40 Drug: Versed - Midazolam (PF) 5 mg [midazolam (PF) 5 mg/mL injection solution (1 mL)] cf2 Route: IVP; Site: left antecubital; 05/24 01:14 Follow up: Response: No significant change. cf2 05/23 21:45 Drug: Versed - Midazolam (PF) 10 mg [midazolam (PF) 5 mg/mL injection solution (2 mL)] cf2 Route: IVP; Site: left antecubital; 05/24 01:14 Follow up: Response: No significant change. cf2 05/23 21:55 Drug: Versed - Midazolam (PF) 10 mg [midazolam (PF) 5 mg/mL injection solution (2 mL)] cf2 Route: IVP; Site: left antecubital; 05/24 01:15 Follow up: Response: No significant change. cf2 05/23 22:05 Not Given (Duplicate Order): Versed 5 mg IM once cf2 22:10 Drug: Versed - Midazolam (PF) 5 mg [midazolam (PF) 5 mg/mL injection solution (1 mL)] cf2 Route: IVP; Site: left antecubital; 05/24 01:14 Follow up: Response: No significant change. cf2 05/23 22:10 Drug: Versed - Midazolam (PF) 5 mg [midazolam (PF) 5 mg/mL injection solution (1 mL)] cf2 Route: IVP; Site: left antecubital; 05/24 01:13 Follow up: Response: No significant change. cf2 05/23 22:55 Drug: Versed - Midazolam (PF) 10 mg [midazolam (PF) 5 mg/mL injection solution (2 mL)] cf2 Route: IVP; Site: left antecubital; 05/24 01:14 Follow up: Response: No Adverse Reaction cf2 00:11 Not Given (Duplicate Order): Versed - Midazolam (PF) 10 mg IVP once cf2 00:35 Drug: Midazolam 2 mg [midazolam 1 mg/mL injection solution (2 mL)] Route: IVP; Site: [facility] left antecubital; Critical Care Time: 05/23 22:49 Critical care time: Bedside Care: 120 minutes. Total time: 120 minutes cs11 Signatures: Dispatcher [employer] EDMS Apoorva Mason, Reg Reg gb Jose Luis, Idris zo Conner Salamanca bb3 Hortencia Rossi, RN RN sls1 Gaston Vargas DO DO cs11 McLear, Daisy, PERINATAL DIRECTOR PERINATAL DIRECTOR tmm1 Nicki Bautista, Special Education Inclusion Teacher Unit jlLinda Long RN RN nn1 Loree Aldana RN RN cf2 Reinaldo Velasquez RN RN sa Spurling, Richard RT rs5 Fadia Egan RN af2 The chart was reviewed and I authenticate all verbal orders and agree with the evaluation and treatment provided.Attachments: 21:11 [facility] Payment Agreement zo 05/24 12:08 T-Sheet-- Draft Copy gb Chart Complete MTDD
--- NOTE | 2016-05-26 02:47 | EDDOCDS ---
Nurse's Notes [facility] Name: Ki Chaney Age: 46 yrs Sex: Male : 1970 Arrival Date: 05/23/2016 Time: 19:35 Bed Admit Hold Private MD: Vanessa Pcp Diagnosis: Acute epiglottitis with obstruction Presentation: 05/23 19:39 Presenting complaint: EMS states: patient from [facility], presented to nn1 them with sore throat and feeling like his throat is closing. Patient reports SOB is worse lying back. Patient given 125mg solumedrol IV, 0.3mg epi IM, and 1 duoneb treatment. Patient has 20G left hand and is on 6L nonrebreather. 19:39 Acuity: WILLIAMS Level 2 nn1 19:39 Method Of Arrival: Ambulance nn1 19:43 Adult Sepsis Screening: The patient does not have new or worsening altered mentation. nn1 Patient has a respiratory rate of greater than or equal to 22 (1 point). Systolic blood pressure is greater than 100. Patient has a qSOFA score of 1- Negative Sepsis Screen. Suicide/Homicide risk assessment- the patient denies having any suicidal and/or homicidal ideations and does not present with any other emotional, behavioral or mental health complaints. 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 Transition of care: Patient was received from [facility]. Triage Assessment: 19:45 General: Appears uncomfortable, Behavior is appropriate for age, cooperative. Pain: nn1 Location: throat Pain currently is 10 out of 10 on a pain scale. Quality of pain is described as "feel like my throat is closing". HIV screening NA for this visit. The patient is triaged at the bedside. See Assessment in Nurses Notes section of ED record. Neurological: Level of Consciousness is awake, alert, obeys commands. Respiratory: Onset: The symptoms/episode began/occurred 1600. Patient reports he went to urgent care because he thought he had strep throat, by the time he arrived he felt like his throat was closing up and he could not breath. , Airway is patent Respiratory effort is even, labored, Respiratory pattern is regular. Derm: Skin is flushed. Historical: - Allergies: PENICILLINS; - Home Meds: 1. none - PMHx: none; - PSHx: Lithotripsy; - Social history: Smoking status: Patient uses tobacco products, heavy tobacco smoker. No barriers to communication noted, The patient speaks fluent [place], Speaks appropriately for age. - Family history: Not pertinent. - : The pt / caregiver states he / she is not on anticoagulants. Home medication list is obtained from the patient. - Exposure Risk Screening:: None identified. Screenin:38 Screening information is obtained from the patient. Fall risk: No risks identified. cf2 Assistance ADL's: requires no assistance with activities of daily living. Abuse/DV Screen: The patient / caregiver reports he/she is: not in a situation that causes fear, pain or injury. Nutritional screening: No deficits noted. Advance Directives: Further advance directive information is declined. home support is adequate. Assessment: 20:38 Adult Sepsis Screening: The patient does not have new or worsening altered mentation. cf2 Patient has a respiratory rate of greater than or equal to 22 (1 point). Systolic blood pressure is greater than 100. Patient has a qSOFA score of 1- Negative Sepsis Screen. General: Appears distressed, Behavior is appropriate for age, cooperative. Pain: Denies pain. Neurological: No deficits noted. EENT: Throat is reddened. Cardiovascular: Rhythm is regular. Cardiovascular: Chest pain is denied Denies fatigue, lightheadedness, palpitations, syncope. Respiratory: Airway possibly obstructed. Stridor present patient states blockage in throat Breath sounds are clear Stridor noted. 20:40 Respiratory: Airway is compromised Breath sounds are clear Stridor noted. cf2 20:50 General: Patient to Ct scan. cf2 21:00 General: MD speaks with patient in regards to maintaining airway. Decision made for cf2 intubation, patient and significant other both agree. 21:21 General: Patient was medicated with Etomidate and Succ. Patient was intubated with cf2 7.0/21 at lipon first attempt. Placement verified via auscultation and awaiting x-ray arrival. 21:30 General: Patient medicated with Versed as patient is bucking the vent . cf2 21:55 General: #14 [place] sump inserted with placement verified via auscultation. #16 [place] cf[address] Pedersen at bedside to assess patient . 23:13 General: pH 7.205 made aware. Awaiting new orders. General: Patient currently cf2 sedated. Vital signs stable.. 23:15 General: Report to oncoming shift . cf2 23:20 General: Appears in no apparent distress, to be sleeping. orally intubated. sls1 Neurological: Level of Consciousness is sedated. Respiratory: Airway via oral intubation. 23:20 Cardiovascular: Rhythm is regular. Respiratory:. Derm: Skin is pink, warm & dry. js15 05/24 00:20 Reassessment: Patient appears in no apparent distress at this time. Pt orally js15 intubated, sedated; resting on stretcher, skin pink, moist, warm; cardiac rhythm is NSR; will continue to [facility]is [facility]. 01:05 Reassessment: Patient appears in no apparent distress at this time. Pt resting on js15 stretcher, orally intubated; skin pink, warm, dry; cardiac rhythm is NSR. Vital Signs: 05/23 19:20 Pulse 107 MON; Pulse Ox 93% ; cf2 19:24 Pulse 100 MON; Pulse Ox 93% ; cf2 19:27 Pulse 99 MON; Pulse Ox 94% ; cf2 19:29 Pulse 100 MON; Pulse Ox 94% ; cf2 19:39 BP 151 / 87 (auto/); cf2 19:41 Pulse 89 MON; Pulse Ox 98% ; cf2 19:44 Pulse 89 MON; Pulse Ox 98% ; cf2 19:48 Pulse 85 MON; Pulse Ox 98% ; cf2 19:48 BP 147 / 84 (auto/); cf2 19:49 Pulse 86 MON; Pulse Ox 98% ; cf2 19:53 Pulse 90 MON; Pulse Ox 97% ; cf2 19:56 Pulse 89 MON; Pulse Ox 97% ; cf2 20:00 Pulse 91 MON; Pulse Ox 97% ; cf2 20:03 Pulse 87 MON; Pulse Ox 97% ; cf2 20:03 BP 158 / 86 (auto/); cf2 20:07 Pulse 88 MON; Pulse Ox 97% ; cf2 20:10 Pulse 87 MON; Pulse Ox 96% ; cf2 20:14 Pulse 90 MON; Pulse Ox 96% ; cf2 20:17 Pulse 100 MON; Pulse Ox 97% ; cf2 20:18 BP 165 / 86 (auto/); cf2 20:19 Pulse 86 MON; Pulse Ox 97% ; cf2 20:23 Pulse 87 MON; Pulse Ox 97% ; cf2 20:25 Pulse 99 MON; Pulse Ox 97% ; cf2 20:29 Pulse 100 MON; cf2 20:31 Pulse 92 MON; Pulse Ox 96% ; cf2 20:33 BP 151 / 78 (auto/); cf2 20:34 Pulse 90 MON; Pulse Ox 95% ; cf2 20:48 BP 150 / 74 (auto/); cf2 20:49 Pulse 89 MON; Pulse Ox 94% ; cf2 21:03 BP 143 / 71 (auto/); cf2 21:04 Pulse 84 MON; Pulse Ox 90% ; cf2 21:18 BP 154 / 80 (auto/); cf2 21:19 Pulse 97 MON; Pulse Ox 98% ; cf2 21:33 Weight 117.93 kg (R); sls1 21:35 Pulse 101 MON; cf2 21:35 BP 159 / 83 (auto/); cf2 21:36 Pulse 98 MON; cf2 21:37 Pulse 96 MON; Pulse Ox 94% ; cf2 21:42 BP 131 / 85 (auto/); cf2 21:43 Pulse 99 MON; Pulse Ox 96% ; cf2 21:46 Pulse 97 MON; Pulse Ox 95% ; cf2 21:46 BP 136 / 76 (auto/); cf2 21:51 Pulse 93 MON; Pulse Ox 96% ; cf2 21:51 BP 140 / 71 (auto/); cf2 21:56 Pulse 97 MON; Pulse Ox 97% ; cf2 21:56 BP 133 / 71 (auto/); cf2 22:01 Pulse 88 MON; Pulse Ox 96% ; cf2 22:01 BP 107 / 54 (auto/); cf2 22:06 Pulse 97 MON; Pulse Ox 97% ; cf2 22:06 BP 111 / 75 (auto/); cf2 22:11 Pulse 83 MON; Pulse Ox 95% ; cf2 22:11 BP 108 / 56 (auto/); cf2 22:16 Pulse 82 MON; Pulse Ox 96% ; cf2 22:16 BP 101 / 57 (auto/); cf2 22:22 BP 103 / 55 (auto/); cf2 22:23 Pulse 81 MON; Pulse Ox 96% ; cf2 22:26 Pulse 82 MON; Pulse Ox 96% ; cf2 22:26 BP 96 / 51 (auto/); cf2 22:31 Pulse 81 MON; Pulse Ox 96% ; cf2 22:31 BP 103 / 58 (auto/); cf2 22:36 Pulse 80 MON; Pulse Ox 96% ; cf2 22:36 BP 103 / 59 (auto/); cf2 22:41 Pulse 80 MON; Pulse Ox 96% ; cf2 22:41 BP 105 / 56 (auto/); cf2 22:46 Pulse 79 MON; Pulse Ox 96% ; cf2 22:46 BP 109 / 56 (auto/); cf2 22:51 Pulse 85 MON; Pulse Ox 96% ; cf2 22:51 BP 119 / 57 (auto/); cf2 22:56 Pulse 74 MON; Pulse Ox 96% ; cf2 22:56 BP 118 / 58 (auto/); cf2 23:01 Pulse 75 MON; Pulse Ox 97% ; cf2 23:01 BP 110 / 57 (auto/); cf2 23:06 Pulse 76 MON; Pulse Ox 97% ; cf2 23:06 BP 107 / 58 (auto/); cf2 23:11 BP 108 / 58 (auto/); cf2 23:11 Pulse 77 MON; Pulse Ox 96% ; cf2 23:15 Pulse 77 MON; Resp 16; Pulse Ox 96% on 50% FiO2 ETT vent; js15 23:16 BP 107 / 59 (auto/); sls1 23:25 Pulse 75 MON; Pulse Ox 96% ; sls1 23:26 BP 114 / 63 (auto/); sls1 23:30 Pulse 73 MON; Pulse Ox 96% ; sls1 23:31 BP 114 / 63 (auto/); sls1 23:35 Pulse 71 MON; Pulse Ox 97% ; sls1 23:36 BP 115 / 65 (auto/); sls1 23:40 Pulse 71 MON; Pulse Ox 97% ; sls1 23:41 BP 112 / 66 (auto/); sls1 23:45 Pulse 71 MON; Pulse Ox 97% ; sls1 23:46 BP 115 / 67 (auto/); sls1 23:50 Pulse 70 MON; Pulse Ox 97% ; sls1 23:51 BP 116 / 67 (auto/); sls1 23:55 Pulse 70 MON; Pulse Ox 98% ; sls1 23:56 BP 117 / 68 (auto/); sls1 05/24 00:12 BP 120 / 69 (auto/); sls1 00:12 Pulse 68 MON; Pulse Ox 98% ; sls1 00:22 BP 121 / 71 (auto/); sls1 00:22 Pulse 68 MON; Pulse Ox 98% ; sls1 00:31 Pulse 77 MON; Pulse Ox 96% ; sls1 00:32 BP 138 / 80 (auto/); sls1 00:42 BP 141 / 84 (auto/); sls1 00:45 Pulse 76 MON; Pulse Ox 97% ; sls1 00:52 BP 130 / 76 (auto/); sls1 00:53 Pulse 74 MON; Pulse Ox 93% ; sls1 01:02 BP 120 / 64 (auto/); js15 01:02 Pulse 72 MON; Pulse Ox 94% ; js15 01:12 BP 111 / 61 (auto/); js15 01:13 Pulse 69 MON; Resp 16; Temp 97.9(R); Pulse Ox 94% on 50% FiO2 ETT vent; js15 Vitals: 05/23 20:42 Log In Time N/A - ambulance arrival. cf2 ED Course: 19:37 Patient visited by Daisy Hassan PCA. tmm1 19:37 Patient moved to Waiting tmm1 19:38 No Pcp is Private Physician. tmm1 19:38 Ashley Neil RN is Primary Nurse. tmm1 19:38 Patient moved to 1 tmm1 19:41 Gaston Vargas DO is Attending Physician. cs11 19:41 Patient visited by Gaston Vargas DO. cs11 19:42 Triage Initiated nn1 20:08 BLOOD CULTURES Sent. cf2 20:08 MED Profile Sent. cf2 20:08 CBC with Diff Sent. cf2 20:08 -Blood Culture Sent. cf2 20:09 Primary Nurse role handed off by Ashley Neil RN cf2 20:09 Loree Aldana,ANASTACIO is Primary Nurse. cf2 20:09 Patient visited by Loree Aldana,ANASTACIO. cf2 20:19 Patient visited by Loree Aldana,ANASTACIO. cf2 20:28 Patient visited by Loree Aldana,ANASTACIO. cf2 20:33 Patient visited by Loree Aldana,ANASTACIO. cf2 20:38 The patient / caregiver is instructed regarding the plan of care and ED course. Patient cf2 has correct armband on for positive identification. Placed in gown. Bed in low position. Call light in reach. Side rails up X 1. Side rails up X2. radiation monitor on. Pulse ox on. NIBP on. Property :Personal belongings accompany Pt. Door closed. Noise minimized. Visitors limited. Lights dimmed. Moved to private room. Verbal reassurance given. Warm blanket given. Pillow given. Head of bed elevated. Diet: Patient is NPO. 20:38 Inserted saline lock: 20 gauge in left hand and blood collected. The patient tolerated cf2 the procedure well. No procedures done that require assistance. 20:41 Chest, 1 View Returned. EDMS 21:11 [facility] Payment Agreement was scanned into [employer] and attached to record. zo 21:20 Patient name changed from Hiro\\S\\M\\S\\Chaney\\S\\ to Ki\\S\\ \\S\\Chaney. EDMS 21:24 CT Neck With Contrast Returned. EDMS 21:35 -Arterial Blood Gas Sent. rs5 21:45 Zafar Pedersen is Hospitalizing Provider. cs11 21:55 Romero cath inserted 16 Fr. Balloon inflated. To gravity drainage. Suctioned orally - cf2 moderate amount clear sputum Assist ventilation TV400 O2 40% R14 Peep 5. 21:55 Labs drawn. (by ED staff). Labs/Blood culture drawn. NGT inserted to intermittent cf2 suction. Returned gastric contents. Patient tolerated well. OG tube inserted. 22:09 Patient visited by Loree Aldana RN. cf2 22:54 Patient visited by Loree Aldana RN. cf2 23:00 -Arterial Blood Gas Sent. bb3 23:25 Patient visited by Loree Aldana RN. cf2 23:30 Romero cath inserted Balloon inflated. To gravity drainage. inserted by Stefanie Batista RN. js15 23:39 Patient moved to Admit Hold [facility] 05/24 00:48 ARTERIAL BLOOD GAS Sent. bb3 01:43 Chest, 1 View Returned. EDMS 12:08 T-Sheet-- Draft Copy was scanned into [employer] and attached to record. gb Administered Medications: Discontinued: Dexamethasone 12 mg IV at bolus once Discontinued: levofloxacin 500 mg IVPB once over 60 mins Discontinued: Clindamycin 900 mg IVPB once over 30 mins; dilute in 50mL of NS or D5W 05/23 19:50 Drug: Dexamethasone 12 mg [dexamethasone 4 mg/mL injection solution] Route: IV; Rate: cf2 bolus; Site: left antecubital; 05/24 01:16 Follow up: Response: No significant change. 2 05/23 19:50 Drug: Racepinephrine 0.5 ml [racepinephrine 2.25 % solution for nebulization (0.5 mL)] rs5 Route: Inhalation; Infused Over: 15 mins; 21:00 Drug: Clindamycin 900 mg [clindamycin 600 mg/50 mL in 5 % dextrose intravenous cf2 piggyback] Route: IVPB; Infused Over: 30 mins; Site: left antecubital; 21:21 Drug: Etomidate 20 mg [etomidate 2 mg/mL intravenous solution (10 mL)] Route: IVP; af2 Site: right antecubital; 05/24 01:13 Follow up: Response: No significant change. 2 05/23 21:21 Drug: Succinylcholine - Quelicin (1mg/kg) 100 mg [Quelicin 20 mg/mL injection solution af2 (5 mL)] Route: IVP; Site: right antecubital; 05/24 01:13 Follow up: Response: No significant change. 2 05/23 21:30 Drug: levofloxacin 500 mg [levofloxacin 500 mg/100 mL in 5 % dextrose intravenous cf2 piggyback] Route: IVPB; Infused Over: 60 mins; Site: left antecubital; 05/24 01:16 Follow up: Response: No significant change. cf2 :16 Follow up: Response: No significant change. 2 05/23 21:30 Drug: diprovan 200 mg Route: IV; Rate: 40 mcg/kg/min; Site: left antecubital; cf2 05/24 01:13 Follow up: Response: No Adverse Reaction 2 05/23 21:35 Drug: Versed - Midazolam (PF) 5 mg [midazolam (PF) 5 mg/mL injection solution (1 mL)] cf2 Route: IVP; Site: left antecubital; 05/24 01:15 Follow up: Response: No significant change. 2 05/23 21:40 Drug: Versed - Midazolam (PF) 5 mg [midazolam (PF) 5 mg/mL injection solution (1 mL)] cf2 Route: IVP; Site: left antecubital; 05/24 01:14 Follow up: Response: No significant change. cf2 05/23 21:45 Drug: Versed - Midazolam (PF) 10 mg [midazolam (PF) 5 mg/mL injection solution (2 mL)] cf2 Route: IVP; Site: left antecubital; 05/24 01:14 Follow up: Response: No significant change. cf2 05/23 21:55 Drug: Versed - Midazolam (PF) 10 mg [midazolam (PF) 5 mg/mL injection solution (2 mL)] cf2 Route: IVP; Site: left antecubital; 05/24 01:15 Follow up: Response: No significant change. cf2 05/23 22:05 Not Given (Duplicate Order): Versed 5 mg IM once cf2 22:10 Drug: Versed - Midazolam (PF) 5 mg [midazolam (PF) 5 mg/mL injection solution (1 mL)] cf2 Route: IVP; Site: left antecubital; 05/24 01:14 Follow up: Response: No significant change. cf2 05/23 22:10 Drug: Versed - Midazolam (PF) 5 mg [midazolam (PF) 5 mg/mL injection solution (1 mL)] cf2 Route: IVP; Site: left antecubital; 05/24 01:13 Follow up: Response: No significant change. cf2 05/23 22:55 Drug: Versed - Midazolam (PF) 10 mg [midazolam (PF) 5 mg/mL injection solution (2 mL)] cf2 Route: IVP; Site: left antecubital; 05/24 01:14 Follow up: Response: No Adverse Reaction cf2 00:11 Not Given (Duplicate Order): Versed - Midazolam (PF) 10 mg IVP once cf2 00:35 Drug: Midazolam 2 mg [midazolam 1 mg/mL injection solution (2 mL)] Route: IVP; Site: sls1 left antecubital; Output: 01:12 Urine: 800.00ml (Romero); Total: 800.00ml. js15 RT: 05/23 20:03 Initial Med Neb Given as ordered Patient was instructed and evaluated on procedure rs5 Patient tolerated procedure well without adverse effect. Respiratory: Respiratory effort is even, labored, Breath sounds with wheezes bilaterally. Reports air hunger. 21:18 Intubation: Performed by Ventilated with 100% NRB prior to procedure. placed bb3 orally. 7.0 Fr. ETT Cricoid pressure applied during procedure. Placement verified by CO2 detector w/ + color change, auscultating bilateral breath sounds, O2 saturation after procedure was 99 %. Ventilated with ventilator. 21:26 Ventilation: Ventilator Settings Assist Control, FiO2 40% Resp Rate: 16, Tidal Volume bb3 425ml PEEP: 5. Respiratory: PIP approx 19-20 cmH20. 21:35 ABG's drawn from left radial artery allens test done and positive pressure held for 5 rs5 minutes no bleeding noted pressure bandage applied specimen sent pt. tolerated well. Subsequent Med Neb Given as ordered Patient was reinforced on procedure Patient tolerated procedure well without adverse effect. 21:52 Ventilation: Ventilator Settings Pressure Control, FiO2 50% PEEP: 5. rs5 22:38 Respiratory: minute ventilation approx 8 LPM on previous PC settings. bb3 22:41 Ventilation: Ventilator Settings Assist Control, FiO2 50% Resp Rate: 16, Tidal Volume bb3 425ml PEEP: 5. Respiratory: minute ventilation approx 10 LPM. PIP ranges 19-23 on current settings. 23:00 ABG's drawn from right radial artery pressure held for 5 minutes no bleeding noted bb3 pressure bandage applied specimen sent pt. tolerated well. Respiratory: AC 425x16 +5 50%. 23:52 Ventilation: Ventilator Settings PEEP: 8. Respiratory: increased from +[address] rupali pedersen. 05/24 00:48 ABG's drawn from right radial artery pressure held for 5 minutes no bleeding noted bb3 pressure bandage applied specimen sent pt. tolerated well. Respiratory: AC 425x16 +8 50%. Order Results: Lab Order: CBC with Diff; SPEC'M 05/23/16 20:01 Test: WHITE BLOOD COUNT; Value: 21.5; Range: 4.0-10.0; Abnormal: Above high normal; Units: K/mm3; Status: F Test: RED BLOOD COUNT; Value: 5.35; Range: 4.30-6.10; Units: M/mm3; Status: F Test: HEMOGLOBIN; Value: 17.4; Range: 14.0-18.0; Units: g/dl; Status: F Test: HEMATOCRIT; Value: 49.5; Range: 42.0-52.0; Units: %; Status: F Test: MEAN CORPUSCULAR VOLUME; Value: 92.4; Range: 80.0-96.0; Units: fl; Status: F Test: MEAN CORPUSCULAR HEMOGLOBIN; Value: 32.6; Range: 27.0-33.0; Units: pg; Status: F Test: MEAN CORPUSCULAR HGB CONC; Value: 35.2; Range: 32.0-36.5; Units: g/dl; Status: F Test: RED CELL DISTRIBUTION WIDTH; Value: 12.7; Range: 11.5-14.5; Units: %; Status: F Test: PLATELET COUNT, AUTOMATED; Value: 343; Range: 150-450; Units: k/mm3; Status: F Test: NEUTROPHILS %; Value: 87.2; Range: 36.0-66.0; Abnormal: Above high normal; Units: %; Status: F Test: LYMPH %; Value: 7.8; Range: 24.0-44.0; Abnormal: Below low normal; Units: %; Status: F Test: MONO %; Value: 3.6; Range: 0.0-5.0; Units: %; Status: F Test: EOS %; Value: 0.5; Range: 0.0-3.0; Units: %; Status: F Test: BASO %; Value: 0.2; Range: 0.0-1.0; Units: %; Status: F Test: LARGE UNSTAINED CELL %; Value: 0.6; Range: 0.0-4.0; Units: %; Status: F Test: NEUTROPHILS #; Value: 18.8; Range: 1.8-7.7; Abnormal: Above high normal; Units: K/mm3; Status: F Test: LYMPH #; Value: 1.7; Range: 1.5-4.5; Units: K/mm3; Status: F Test: MONO #; Value: 0.8; Range: 0.0-0.8; Units: K/mm3; Status: F Test: EOS #; Value: 0.1; Range: 0.0-0.50; Units: K/mm3; Status: F Test: BASO #; Value: 0.0; Range: 0.0-0.2; Units: K/mm3; Status: F Test: LARGE UNSTAINED CELL #; Value: 0.1; Range: 0.0-0.4; Units: K/mm3; Status: F Lab Order: MED Profile; SPEC'05/23/16 20:44 Test: GLUCOSE, FASTING; Value: 178; Range: 70-105; Abnormal: Above high normal; Units: MG/DL; Status: F Test: BLOOD UREA NITROGEN; Value: 13; Range: 7-18; Units: MG/DL; Status: F Test: CREATININE FOR GFR; Value: 0.89; Range: 0.70-1.30; Units: MG/DL; Status: F Test: GLOMERULAR FILTRATION RATE; Value: > 60.0; Range: >60; Status: F Test: SODIUM LEVEL; Value: 142; Range: 136-145; Units: MEQ/L; Status: F Test: POTASSIUM SERUM; Value: 3.7; Range: 3.5-5.1; Units: MEQ/L; Status: F Test: CHLORIDE LEVEL; Value: 108; Range: 98-107; Abnormal: Above high normal; Units: MEQ/L; Status: F Test: CARBON DIOXIDE LEVEL; Value: 24; Range: 21-32; Units: MEQ/L; Status: F Test: ANION GAP; Value: 10; Range: 8-16; Units: MEQ/L; Status: F Test: CALCIUM LEVEL; Value: 8.3; Range: 8.5-10.1; Abnormal: Below low normal; Units: MG/DL; Status: F Test Note: ; Units are mL/min/1.73 m2 Chronic Kidney Disease Staging per NKF: Stage I & II GFR >=60 Normal to Mildly Decreased Stage III GFR 30-59 Moderately Decreased Stage IV GFR 15-29 Severely Decreased Stage V GFR <15 Very Little GFR Left ESRD GFR <15 on RN FIRST ASSISTANT Lab Order: -Arterial Blood Gas; SPEC05/23/16 21:29 Test: ABG pH (ARTERIAL); Value: 7.306; Range: 7.350-7.450; Abnormal: Below low normal; Units: UNITS; Status: F Test: ABG PARTIAL PRESSURE CO2; Value: 47.8; Range: 35.0-45.0; Abnormal: Above high normal; Units: mmHg; Status: F Test: ABG PARTIAL PRESSURE O2; Value: 81.3; Range: 75.0-100.0; Units: mmHg; Status: F Test: ABG TOTAL CO2; Value: 24.8; Range: 22.0-29.0; Units: MEQ/L; Status: F Test: ABG HCO3; Value: 23.3; Range: 22.0-26.0; Units: MEQ/L; Status: F Test: ABG BASE EXCESS; Value: -3.5; Range: -2.0-2.0; Abnormal: Below low normal; Status: F Test: ABG STANDARD HCO3; Value: 21.6; Range: 22.0-26.0; Abnormal: Below low normal; Units: MEQ/L; Status: F Test: ABG O2 SATURATION; Value: 95.4; Range: 95.0-99.0; Units: %; Status: F Test: ABG DEVICE; Value: NASAL VICENTE; Status: F Lab Order: -Arterial Blood Gas; [facility]' 05/23/16 22:59 Test: ABG pH (ARTERIAL); Value: 7.205; Range: 7.350-7.450; Abnormal: Critical Low; Units: UNITS; Status: F Test: ABG PARTIAL PRESSURE CO2; Value: 50.8; Range: 35.0-45.0; Abnormal: Above high normal; Units: mmHg; Status: F Test: ABG PARTIAL PRESSURE O2; Value: 95.2; Range: 75.0-100.0; Units: mmHg; Status: F Test: ABG TOTAL CO2; Value: 21.2; Range: 22.0-29.0; Abnormal: Below low normal; Units: MEQ/L; Status: F Test: ABG HCO3; Value: 19.6; Range: 22.0-26.0; Abnormal: Below low normal; Units: MEQ/L; Status: F Test: ABG BASE EXCESS; Value: -8.7; Range: -2.0-2.0; Abnormal: Below low normal; Status: F Test: ABG STANDARD HCO3; Value: 17.7; Range: 22.0-26.0; Abnormal: Below low normal; Units: MEQ/L; Status: F Test: ABG O2 SATURATION; Value: 96.3; Range: 95.0-99.0; Units: %; Status: F Test: ABG DEVICE; Value: NASAL VICENTE; Status: F Lab Order: ARTERIAL BLOOD GAS; SPEC05/24/16 00:47 Test: ABG pH (ARTERIAL); Value: 7.282; Range: 7.350-7.450; Abnormal: Below low normal; Units: UNITS; Status: F Test: ABG PARTIAL PRESSURE CO2; Value: 43.6; Range: 35.0-45.0; Units: mmHg; Status: F Test: ABG PARTIAL PRESSURE O2; Value: 97.5; Range: 75.0-100.0; Units: mmHg; Status: F Test: ABG TOTAL CO2; Value: 21.5; Range: 22.0-29.0; Abnormal: Below low normal; Units: MEQ/L; Status: F Test: ABG HCO3; Value: 20.1; Range: 22.0-26.0; Abnormal: Below low normal; Units: MEQ/L; Status: F Test: ABG BASE EXCESS; Value: -6.4; Range: -2.0-2.0; Abnormal: Below low normal; Status: F Test: ABG STANDARD HCO3; Value: 19.3; Range: 22.0-26.0; Abnormal: Below low normal; Units: MEQ/L; Status: F Test: ABG O2 SATURATION; Value: 97.3; Range: 95.0-99.0; Units: %; Status: F Radiology Order: Chest, 1 View Test: Chest, 1 View REASON FOR EXAMINATION: Abdomen Pain; Chest one-view; ; HISTORY: Abdominal pain; ; Comparison: None; ; The lungs are clear. The heart is normal in size. The pulmonary vasculature is; normal in appearance.; ; Impression: No acute disease.; ; ; Signed by; Baljinder Bess MD 05/23/2016 07:56 P; Radiology Order: CT Neck With Contrast Test: CT Neck With Contrast REASON FOR EXAMINATION: Shortness of Breath; ; CT of the soft tissues of the neck with contrast; Clinical history: shortness of breath.; Technique: Multiple axial CT images were obtained from the base of the skull to the upper thorax afte; r ministration of non-ionic intravenous contrast. Coronal and sagittal reconstructions were also obta; ined.; Findings: The visualized paranasal sinuses are clear. The pterygopalatine fossa, pterygoid plates and; pterygoid muscles are unremarkable. The mucosa of the naso- and oropharynx appears unremarkable. The; re is a hypodense area of soft tissue at the right posterior base of the epiglottis measuring 2.3 x 1; .6 cm. No discrete fluid collection is identified at this site however. The airway is patent, but mil; dly narrowed at this site. The visualized osseous structures are intact. There is no evidence of lymp; hadenopathy. The thyroid gland appears unremarkable. The vascular structures demonstrate normal calib; er and contour. No enhancing masses are identified. The superficial soft tissues are unremarkable.; Impression: Hypodense soft tissue in the right posterior base of the epiglottis as described. This is; likely inflammatory in nature. No discrete abscess or mass is identified at this time, but early dev; eloping abscess cannot completely be excluded. The findings suggest pharyngitis. Follow-up is suggest; ed as clinically indicated.; ; Radiology Order: Chest, 1 View Test: Chest, 1 View REASON FOR EXAMINATION: ett place; Clinical: Endotracheal tube placement.; ; Comparison: 05/23/2016 07:51 p.m.; ; Findings:; Endotracheal tube approximately 4.5 cm above the patricia.; Cardiac silhouette is upper limits of normal.; Poor expiratory effort limits evaluation and pulmonary vascular congestion as; well as scattered atelectasis cannot be excluded. No definite effusion. No; pneumothorax. Skeletal structures grossly intact.; ; Impression:; Endotracheal tube in satisfactory position. Poor expiratory effort limits; evaluation.; ; ; Signed by; Jevon Del Real MD 05/24/2016 01:16 A; Outcome: 05/23 20:38 CT Study completed. cf2 21:45 Decision to Hospitalize by Provider. cs11 05/24 01:05 Admission hand-off: Report called to Rosie CHAVES. js15 01:05 Discharge Assessment: Patient sedated. patient administered narcotics - no. The js15 following High Risk Discharge criteria are identified: None. Admitted to ICU accompanied by nurse, accompanied by tech, family with patient, via stretcher, with oxygen, on monitor, with chart. critical. Property given to girlfriencristóbal Cade. 01:47 Patient left the ED. [email or web address] Signatures: Dispatcher [employer] EDMS Apoorva Mason, Idris Conrad Brad bb3 Hortencia Rossi, RN RN sls1 Jordi Hitchcock,RT RT rs5 Gaston Vargas, DO DO cs11 McLear, Daisy, TELEVISION NEWS ANCHOR TELEVISION NEWS ANCHOR tmm1 Fadia Egan,RN RN af2 Twyla Gotti,ANASTACIO RN js15 Linda Grullon,RN RN nn1 Loree Aldana,RN RN cf2 Corrections: (The following items were deleted from the chart) 05/23 21:28 21:26 Ventilation: Ventilator Settings Assist Control, FiO2 40% Resp Rate: 16, Tidal bb3 Volume 400ml PEEP: 5. bb3 05/24 00:11 05/22 21:30 Versed - Midazolam (PF) 10 mg IVP in left antecubital cf2 cf2 05/24 01:10 05/23 23:15 Pulse 77bpm; Monitor; Pulse Ox 96%; [email or web address] [email or web address] Chart Complete MTDD
[2016-05-26] MEDS: IPRATROPIUM 0.5MG/ALBUTEROL 2.5MG INH SOL UD 3ML (DUONEB)(J7620) NEB SCH ×6 (03:02→23:19)
[2016-05-26 05:02] LABS: MEAN CORPUSCULAR HEMOGLOBIN 32.2 pg (27.0-33.0); MEAN CORPUSCULAR HGB CONC 32.6 g/dl (32.0-36.5); MEAN CORPUSCULAR VOLUME 98.8 fl (80.0-96.0); PLATELET COUNT, AUTOMATED 281 k/mm3 (150-450); RED CELL DISTRIBUTION WIDTH 14.3 % (11.5-14.5); WHITE BLOOD COUNT 11.3 K/mm3 (4.0-10.0)
[2016-05-26 05:14] LABS: ALBUMIN 2.8 GM/DL (3.2-5.2); ALBUMIN/GLOBULIN RATIO 0.82 (1.00-1.93); ALKALINE PHOSPHATASE 65 U/L (45-117); ALT/SGPT 38 U/L (12-78); ANION GAP 4 MEQ/L (8-16); AST/SGOT 30 U/L (15-37); BILIRUBIN,TOTAL 0.4 MG/DL (0.2-1.0); BLOOD UREA NITROGEN 13 MG/DL (7-18); CALCIUM LEVEL 7.7 MG/DL (8.5-10.1); CARBON DIOXIDE LEVEL 31 MEQ/L (21-32); CHLORIDE LEVEL 108 MEQ/L (98-107); CHOLESTEROL LEVEL 156 MG/DL (< 200); CREATININE FOR GFR 0.87 MG/DL (0.70-1.30); GLOMERULAR FILTRATION RATE > 60.0 (>60); GLUCOSE, FASTING 96 MG/DL (70-105); MAGNESIUM LEVEL 2.5 MG/DL (1.8-2.4); PHOSPHORUS LEVEL 3.6 MG/DL (2.5-4.9); POTASSIUM SERUM 4.9 MEQ/L (3.5-5.1); SODIUM LEVEL 143 MEQ/L (136-145); TOTAL PROTEIN 6.2 GM/DL (6.4-8.2); TRIGLYCERIDES LEVEL 458 MG/DL (<150)
[2016-05-26 05:27] LABS: BANDS 1 % (< 11)
[2016-05-26] MEDS: HumaLOG INSULIN (NovoLOG) PER UNIT SC SCH ×4 (05:51→23:39)
[2016-05-26] MEDS: CLINDAMYCIN 900 MG in APPROPRIATE DILUENT 1 EA IV SCH ×3 (06:16→22:09)
[2016-05-26] MEDS: HEPARIN SOD (PORCINE) 5000 UNITS/ML VIAL SC SCH ×3 (06:16→22:09)
--- NOTE | 2016-05-26 07:56 | REP ---
Clinical: Status post intubation. Comparison: 05/25/2016. Findings: Endotracheal tube approximately 4 cm above the patricia. Nasogastric tube courses below left hemidiaphragm. Perihilar and infrahilar atelectasis cannot be excluded. No definite effusion. No pneumothorax. Mediastinum and cardiac silhouette are within normal limits. Skeletal structures intact. Impression: Scattered atelectasis suggested. Endotracheal tube and nasogastric tube in satisfactory position. Signed by Jevon Del Real MD 05/26/2016 07:48 A
[2016-05-26] MEDS: CHLORHEXIDINE GLUCONATE 0.12 % 15ML UDC (PERIDEX ORAL RINSE) MT SCH (08:29)
[2016-05-26] MEDS: LevoFLOXacin IV 750 MG in APPROPRIATE DILUENT 1 EA IV SCH (11:39)
[2016-05-26] MEDS ORDERED: PROPOFOL 200 MG/20 ML VIAL As Ordered ONE (16:05)
[2016-05-26] MEDS ORDERED: SEVOFLURANE INHAL SOLN 250 ML BTL As Ordered ONE (16:08)
[2016-05-26] MEDS ORDERED: LIDOCAINE W/EPINEPHRINE 1% 20ML VIAL As Ordered ONE (16:14)
[2016-05-26] MEDS ORDERED: OXYMETAZOLINE NASAL SPRAY (AFRIN) As Ordered ONE (16:14)
[2016-05-26] MEDS ORDERED: LR 1,000 ML IV SCH (18:00)
[2016-05-26] MEDS ORDERED: ONDANSETRON 4MG/2ML VIAL (J2405) IV PRN (18:00)
[2016-05-26] MEDS: MORPHINE 2 MG/ML 1ML SYRINGE IV PRN ×2 (20:48→20:58)
--- NOTE | 2016-05-26 20:57 | RO ---
DATE OF PROCEDURE: 05/26/2016 PREPROCEDURE DIAGNOSIS: Acute epiglottis. POSTPROCEDURE DIAGNOSIS: Acute epiglottis. PROCEDURE: Video laryngoscopy using the GlideScope. SURGEON: Dr. Brandon Cosby ASSISTANT SHIFT SUPERVISOR: ANESTHESIA: DESCRIPTION OF PROCEDURE: The patient was moved to the operating room table in supine position. He was then placed under general anesthesia and paralyzed. He was already intubated when he came to the operating room since his admission. The GlideScope was then passed without difficulty and good visualization of the hypopharynx and larynx was obtained. The epiglottis was no longer inflamed, it was no longer swollen and overall his supraglottic larynx appeared to be back to normal. You could see the tube passing between the vocal cords without difficulty. The GlideScope was removed, and the procedure was terminated. The patient was then woken up and when he was sufficiently awake, the tube was removed and he was breathing comfortably and talking with us in the operating room before the conclusion. The patient tolerated the procedure well and left the operating room in improved condition. Blood loss for the procedure was none. cc: Reynaldo Pedersen MD
[2016-05-26] MEDS: RACEPINEPHrine 2.25 % UD INHA INH PRN (21:07)
[2016-05-26] MEDS: PANTOPRAZOLE 40MG INJ (PROTONIX) (C9113) IV SCH (22:09)
[2016-05-27] VITALS: BP 126/74
[2016-05-27] MEDS: RACEPINEPHrine 2.25 % UD INHA INH PRN ×4 (01:48→12:22)
[2016-05-27] MEDS: IPRATROPIUM 0.5MG/ALBUTEROL 2.5MG INH SOL UD 3ML (DUONEB)(J7620) NEB SCH ×5 (03:55→19:53)
[2016-05-27 04:00] VITALS: BP 131/66
[2016-05-27 05:04] LABS: BASO # 0.2 K/mm3 (0.0-0.2); BASO % 1.1 % (0.0-1.0); EOS # 0.1 K/mm3 (0.0-0.50); EOS % 1.1 % (0.0-3.0); LARGE UNSTAINED CELL # 0.2 K/mm3 (0.0-0.4); LARGE UNSTAINED CELL % 1.4 % (0.0-4.0); LYMPH # 2.5 K/mm3 (1.5-4.5); LYMPH % 17.9 % (24.0-44.0); MEAN CORPUSCULAR HEMOGLOBIN 32.4 pg (27.0-33.0); MEAN CORPUSCULAR HGB CONC 34.4 g/dl (32.0-36.5); MEAN CORPUSCULAR VOLUME 94.2 fl (80.0-96.0); MONO # 0.8 K/mm3 (0.0-0.8); MONO % 5.7 % (0.0-5.0); NEUTROPHILS # 9.6 K/mm3 (1.8-7.7); NEUTROPHILS % 72.8 % (36.0-66.0); PLATELET COUNT, AUTOMATED 287 k/mm3 (150-450); RED CELL DISTRIBUTION WIDTH 14.2 % (11.5-14.5); WHITE BLOOD COUNT 13.2 K/mm3 (4.0-10.0)
[2016-05-27] MEDS: CLINDAMYCIN 900 MG in APPROPRIATE DILUENT 1 EA IV SCH ×3 (05:31→21:37)
[2016-05-27] MEDS: HEPARIN SOD (PORCINE) 5000 UNITS/ML VIAL SC SCH ×3 (05:31→21:37)
[2016-05-27] MEDS: HumaLOG INSULIN (NovoLOG) PER UNIT SC SCH ×3 (05:31→18:03)
[2016-05-27 06:08] LABS: ALBUMIN 3.1 GM/DL (3.2-5.2); ALBUMIN/GLOBULIN RATIO 0.84 (1.00-1.93); ALKALINE PHOSPHATASE 78 U/L (45-117); ALT/SGPT 34 U/L (12-78); ANION GAP 11 MEQ/L (8-16); AST/SGOT 19 U/L (15-37); BILIRUBIN,TOTAL 0.8 MG/DL (0.2-1.0); BLOOD UREA NITROGEN 15 MG/DL (7-18); CARBON DIOXIDE LEVEL 26 MEQ/L (21-32); CHLORIDE LEVEL 108 MEQ/L (98-107); CHOLESTEROL LEVEL 195 MG/DL (< 200); CREATININE FOR GFR 0.77 MG/DL (0.70-1.30); GLOMERULAR FILTRATION RATE > 60.0 (>60); GLUCOSE, FASTING 99 MG/DL (70-105); MAGNESIUM LEVEL 2.5 MG/DL (1.8-2.4); PHOSPHORUS LEVEL 2.6 MG/DL (2.5-4.9); SODIUM LEVEL 145 MEQ/L (136-145); TOTAL PROTEIN 6.8 GM/DL (6.4-8.2); TRIGLYCERIDES LEVEL 356 MG/DL (<150)
--- NOTE | 2016-05-27 07:35 | REP ---
Clinical: Extubation. Comparison: 05/26/2016. Findings: Previously identified endotracheal tube and nasogastric tube have been removed. Mediastinum and cardiac silhouette are stable. Lung nj demonstrate increased interstitial and pulmonary vascular markings suggesting element of pulmonary venous congestion. Left lower lobe/retrocardiac infiltrate is identified and more pronounced than prior examination. No obvious effusion. No pneumothorax. Skeletal structures intact. Impression: 1. Cannot exclude mild pulmonary venous congestion/interstitial edema. 2. Small left lower lobe/retrocardiac consolidation more pronounced than prior examination. Signed by Jevon Del Real MD 05/27/2016 07:27 A
[2016-05-27 08:00] VITALS: BP 145/80
[2016-05-27] MEDS: PANTOPRAZOLE 40MG TAB (PROTONIX) PO SCH (09:43)
[2016-05-27] MEDS ORDERED: GLUCAGON FOR INJ 1 MG VIAL (J1610) SC PRN (10:30)
[2016-05-27] MEDS ORDERED: DEXTROSE 50% 50 ML SYRINGE IV PRN (10:30)
[2016-05-27] MEDS ORDERED: GLUCOSE 4 GM CHEW TABLET PO PRN (10:30)
[2016-05-27] MEDS: LevoFLOXacin IV 750 MG in APPROPRIATE DILUENT 1 EA IV SCH (11:46)
[2016-05-27 12:00] VITALS: BP 143/74
[2016-05-27 16:00] VITALS: BP 138/74
[2016-05-27] MEDS: ACETAMINOPHEN TAB 650MG DOSE (2X325MG) PO PRN ×2 (16:06→18:00)
[2016-05-27 20:00] VITALS: BP 144/76
[2016-05-27] MEDS ORDERED: HumaLOG INSULIN (NovoLOG) PER UNIT SC SCH (21:00)
[2016-05-28] VITALS: BP 139/75
[2016-05-28] MEDS: NICOTINE 14 MG/24 HR TRANSDERMAL TD SCH ×2 (00:46→08:21)
[2016-05-28 04:00] VITALS: BP 161/85
[2016-05-28] MEDS: IPRATROPIUM 0.5MG/ALBUTEROL 2.5MG INH SOL UD 3ML (DUONEB)(J7620) NEB SCH ×7 (04:32→23:57)
[2016-05-28 04:56] LABS: BASO % 0.4 % (0.0-1.0); EOS # 0.1 K/mm3 (0.0-0.50); EOS % 1.3 % (0.0-3.0); LARGE UNSTAINED CELL # 0.2 K/mm3 (0.0-0.4); LARGE UNSTAINED CELL % 1.7 % (0.0-4.0); LYMPH # 2.1 K/mm3 (1.5-4.5); MEAN CORPUSCULAR HGB CONC 33.6 g/dl (32.0-36.5); MEAN CORPUSCULAR VOLUME 95.3 fl (80.0-96.0); MONO # 0.6 K/mm3 (0.0-0.8); MONO % 5.5 % (0.0-5.0); NEUTROPHILS # 7.5 K/mm3 (1.8-7.7); PLATELET COUNT, AUTOMATED 290 k/mm3 (150-450); RED CELL DISTRIBUTION WIDTH 12.9 % (11.5-14.5); WHITE BLOOD COUNT 10.5 K/mm3 (4.0-10.0)
[2016-05-28 05:00] LABS: ALBUMIN 3.2 GM/DL (3.2-5.2); ALBUMIN/GLOBULIN RATIO 0.91 (1.00-1.93); ALKALINE PHOSPHATASE 81 U/L (45-117); ALT/SGPT 36 U/L (12-78); ANION GAP 10 MEQ/L (8-16); AST/SGOT 20 U/L (15-37); BILIRUBIN,TOTAL 0.9 MG/DL (0.2-1.0); BLOOD UREA NITROGEN 18 MG/DL (7-18); CALCIUM LEVEL 8.3 MG/DL (8.5-10.1); CARBON DIOXIDE LEVEL 25 MEQ/L (21-32); CHLORIDE LEVEL 108 MEQ/L (98-107); CHOLESTEROL LEVEL 206 MG/DL (< 200); CREATININE FOR GFR 0.73 MG/DL (0.70-1.30); GLOMERULAR FILTRATION RATE > 60.0 (>60); GLUCOSE, FASTING 106 MG/DL (70-105); MAGNESIUM LEVEL 2.7 MG/DL (1.8-2.4); PHOSPHORUS LEVEL 3.1 MG/DL (2.5-4.9); POTASSIUM SERUM 3.9 MEQ/L (3.5-5.1); SODIUM LEVEL 143 MEQ/L (136-145); TOTAL PROTEIN 6.7 GM/DL (6.4-8.2); TRIGLYCERIDES LEVEL 330 MG/DL (<150)
[2016-05-28] MEDS: HEPARIN SOD (PORCINE) 5000 UNITS/ML VIAL SC SCH ×3 (05:20→22:13)
[2016-05-28] MEDS: CLINDAMYCIN 900 MG in APPROPRIATE DILUENT 1 EA IV SCH ×3 (05:20→22:14)
[2016-05-28 08:00] VITALS: BP 158/80
[2016-05-28] MEDS: PANTOPRAZOLE 40MG TAB (PROTONIX) PO SCH (08:22)
[2016-05-28] MEDS ORDERED: NICOTINE 14 MG/24 HR TRANSDERMAL TD SCH (09:00)
[2016-05-28] MEDS ORDERED: CALCIUM GLUCONATE 1,000 MG in D5W MINI-BAG PLUS 100 ML IV ONE (09:00)
[2016-05-28] MEDS: LevoFLOXacin IV 750 MG in APPROPRIATE DILUENT 1 EA IV SCH (12:12)
[2016-05-28] MEDS ORDERED: HYDROXYZINE 25 MG/ML IM PRN ×2 (13:00)
[2016-05-28 14:15] VITALS: BP 161/94
[2016-05-28 17:44] VITALS: BP 142/85
[2016-05-28 22:00] VITALS: BP 156/89
[2016-05-29] MEDS: IPRATROPIUM 0.5MG/ALBUTEROL 2.5MG INH SOL UD 3ML (DUONEB)(J7620) NEB SCH ×6 (03:30→23:34)
[2016-05-29 06:00] VITALS: BP 158/78
[2016-05-29 06:21] LABS: BASO % 0.5 % (0.0-1.0); EOS # 0.2 K/mm3 (0.0-0.50); EOS % 1.6 % (0.0-3.0); LARGE UNSTAINED CELL # 0.3 K/mm3 (0.0-0.4); LARGE UNSTAINED CELL % 2.3 % (0.0-4.0); LYMPH # 2.3 K/mm3 (1.5-4.5); LYMPH % 19.6 % (24.0-44.0); MEAN CORPUSCULAR HEMOGLOBIN 32.2 pg (27.0-33.0); MEAN CORPUSCULAR HGB CONC 33.9 g/dl (32.0-36.5); MEAN CORPUSCULAR VOLUME 95.1 fl (80.0-96.0); MONO # 0.6 K/mm3 (0.0-0.8); MONO % 5.3 % (0.0-5.0); NEUTROPHILS # 8.3 K/mm3 (1.8-7.7); NEUTROPHILS % 70.8 % (36.0-66.0); PLATELET COUNT, AUTOMATED 264 k/mm3 (150-450); RED CELL DISTRIBUTION WIDTH 12.7 % (11.5-14.5); WHITE BLOOD COUNT 11.8 K/mm3 (4.0-10.0)
[2016-05-29 06:30] LABS: ALBUMIN 3.3 GM/DL (3.2-5.2); ALBUMIN/GLOBULIN RATIO 0.92 (1.00-1.93); ALKALINE PHOSPHATASE 86 U/L (45-117); ALT/SGPT 48 U/L (12-78); ANION GAP 9 MEQ/L (8-16); AST/SGOT 27 U/L (15-37); BILIRUBIN,TOTAL 0.9 MG/DL (0.2-1.0); BLOOD UREA NITROGEN 15 MG/DL (7-18); CALCIUM LEVEL 8.4 MG/DL (8.5-10.1); CARBON DIOXIDE LEVEL 25 MEQ/L (21-32); CHLORIDE LEVEL 107 MEQ/L (98-107); CHOLESTEROL LEVEL 215 MG/DL (< 200); CREATININE FOR GFR 0.78 MG/DL (0.70-1.30); GLOMERULAR FILTRATION RATE > 60.0 (>60); GLUCOSE, FASTING 93 MG/DL (70-105); MAGNESIUM LEVEL 2.5 MG/DL (1.8-2.4); PHOSPHORUS LEVEL 3.3 MG/DL (2.5-4.9); POTASSIUM SERUM 3.9 MEQ/L (3.5-5.1); SODIUM LEVEL 141 MEQ/L (136-145); TOTAL PROTEIN 6.9 GM/DL (6.4-8.2); TRIGLYCERIDES LEVEL 294 MG/DL (<150)
[2016-05-29] MEDS: CLINDAMYCIN 900 MG in APPROPRIATE DILUENT 1 EA IV SCH ×2 (06:31→13:58)
[2016-05-29] MEDS: HEPARIN SOD (PORCINE) 5000 UNITS/ML VIAL SC SCH ×3 (06:31→20:55)
[2016-05-29] MEDS ORDERED: hydrOXYzine 25 MG TAB PO PRN (07:30)
[2016-05-29] MEDS: PANTOPRAZOLE 40MG TAB (PROTONIX) PO SCH (10:13)
[2016-05-29] MEDS: NICOTINE 14 MG/24 HR TRANSDERMAL TD SCH (10:14)
--- NOTE | 2016-05-29 11:15 | IPNPDOC ---
Text Note Date of Service The patient was seen on 05/29/16 at 11:11. NOTE Subjective: Patient states his breathing and sore throat has significantly improved. Denies chest pain/palpitations. Tolerating diet. Objective: Vitals: (see below) General: No acute distress, laying comfortably in bed. HEENT: Moist mucous membranes. Neck: No JVD or lymphadenopathy Cardiac: RRR, No murmurs Pulm: Clear to auscultation b/l. No wheezing, rhonchi Abd: NT/ND + BS Ext: No edema or cyanosis Labs (see below) Images: Assessment/Plan 1. Acute epiglottitis with airway obstruction, resulting in intubation mechanical ventilation. Patient has been activated. Airways patent. Tolerating diet. Continue IV antibiotics at current doses of clindamycin and Levaquin per ENT recommendations. 2. Probable obstructive sleep apnea- on the sleep study outpatient. Continue tabletop CPAP. 3. Tobacco abuse- counseled on cessation. Nicotine patch. 4. History of substance abuse. 5. Anxiety on hydroxyzine 6. Elevated triglycerides likely secondary to propofol. Trending down. DVT prophy: Plan to discharge once cleared by ENT. Current Medications Current Medications Medications (Trade) Dose Ordered Sig/Albertina Route PRN Reason Start Time Stop Time Status Last Admin Dose Admin Acetaminophen (Tylenol) 650 mg Q4HP PRN PO MILD PAIN OR FEVER 05/23/16 23:00 06/25/16 22:59 05/27/16 16:06 Albuterol Sulfate (Proventil Neb) 2.5 mg Q2HP PRN NEB SHORTNESS OF BREATH 05/23/16 23:00 06/25/16 22:59 Albuterol/ Ipratropium (Duoneb (Ipr 0.5mg/Alb 2.5mg)) 3 ml RQ4H NEB 05/24/16 00:00 06/25/16 00:00 05/29/16 07:30 Bisacodyl (Dulcolax) 10 mg DAILYPRN PRN MN CONSTIPATION 05/23/16 23:00 06/25/16 22:59 Chlorhexidine Gluconate SWAB/BRUSH ORAL CAVITY BID MT 05/24/16 09:00 05/26/16 17:38 DC 05/26/16 08:29 Clindamycin Phosphate 900 mg/ IV Miscellaneous Supplies 50 ml @ 50 mls/hr Q8H IV 05/24/16 06:00 06/02/16 05:59 05/29/16 06:31 Clindamycin Phosphate/IV Miscellaneous Supplies (Cleocin) 50 ml @ 50 mls/hr Q8H IV 05/24/16 06:00 05/24/16 06:00 DC Dexamethasone (Decadron) 6 mg Q12H IV 05/24/16 08:00 05/24/16 12:05 DC 05/24/16 08:31 Dextrose (Dextrose 50%) 25 ml ASDIRECTED PRN IV SEE LABEL COMMENTS 05/24/16 00:15 06/25/16 00:14 Dextrose (Dextrose 50%) 25 ml ASDIRECTED PRN IV SEE LABEL COMMENTS 05/27/16 10:30 05/28/16 08:02 DC Dextrose/Sodium Chloride 1,000 ml @ 75 mls/hr [id number] IV 05/23/16 23:15 05/24/16 21:03 DC 05/24/16 13:29 Glucagon (Glucagon) 1 mg ASDIRECTED PRN SC SEE LABEL COMMENTS 05/27/16 10:30 05/28/16 08:02 DC Glucagon 1 mg 1 mg ASDIRECTED PRN SC SEE LABEL COMMENTS 05/24/16 00:15 06/25/16 00:14 Glucose (Glucose) 16 GM ASDIRECTED PRN PO SEE LABEL COMMENTS 05/24/16 00:15 06/25/16 00:14 Glucose (Glucose) 16 GM ASDIRECTED PRN PO SEE LABEL COMMENTS 05/27/16 10:30 05/28/16 08:02 DC Heparin Sodium (Porcine) (Heparin) 5,000 units Q8H SC 05/24/16 06:00 05/31/16 05:59 05/29/16 06:31 Home Med (Med Rec Complete!) ASDIRECTED XX 05/23/16 23:00 05/23/16 23:10 DC Hydroxyzine HCl (Vistaril) 25 mg Q6HP PRN PO ANXIETY 05/29/16 07:30 06/28/16 07:29 Hydroxyzine HCl (Vistaril, Atarax) 25 mg Q4HP PRN IM ITCHING 05/28/16 13:00 05/28/16 13:00 DC Hydroxyzine HCl (Vistaril, Atarax) 25 mg Q6HP PRN IM ANXIETY 05/28/16 13:00 05/29/16 07:23 DC 05/28/16 13:48 Insulin Human Lispro (HumaLOG INSULIN) SEE PROTOCOL TABLE AC SC 05/27/16 12:00 05/28/16 07:17 DC 05/27/16 18:03 Insulin Human Lispro (HumaLOG INSULIN) SEE PROTOCOL TABLE Q6H SC 05/24/16 00:00 05/27/16 10:23 DC 05/25/16 23:38 Insulin Human Lispro (HumaLOG INSULIN) SEE PROTOCOL TABLE QHS SC 05/27/16 21:00 05/28/16 07:17 DC Lactated Ringer's (Lactated Ringer'S) 1,000 ml @ 100 mls/hr Q10H IV 05/26/16 18:00 05/26/16 19:00 DC Levofloxacin 750 mg/IV Miscellaneous Supplies 150 ml @ 100 mls/hr Q24H IV 05/24/16 12:00 06/02/16 11:59 05/28/16 12:12 Midazolam HCl 100 mg/Dextrose 100 ml @ 4 mls/hr Q24H IV 05/24/16 00:00 05/26/16 17:38 DC 05/25/16 23:39 Midazolam HCl 2 mg 2 mg Q15MP PRN IV ANXIETY 05/23/16 23:00 05/26/16 17:39 DC 05/25/16 13:19 Morphine Sulfate (Morphine Sulfate Inj) 2 mg Q2HP PRN IV PAIN 05/23/16 23:00 05/27/16 09:16 DC 05/26/16 20:48 Nicotine (Nicoderm Cq 14mg) 1 patch DAILY TD 05/28/16 00:00 06/27/16 00:00 05/29/16 10:14 Nicotine (Nicoderm Cq 14mg) 1 patch DAILY TD 05/28/16 09:00 05/28/16 09:00 DC Non-Formulary Medication (Refrigerator Avilez) Q1M PRN XX SEE LABEL COMMENTS 05/23/16 23:00 05/28/16 14:13 DC Ondansetron HCl (Zofran) 4 mg Q4HP PRN IV NAUSEA OR VOMITING 05/26/16 18:00 05/26/16 19:00 DC Ondansetron HCl (Zofran) 4 mg Q6HP PRN IV NAUSEA OR VOMITING 05/23/16 23:00 06/25/16 22:59 05/27/16 23:46 Pantoprazole Sodium (Protonix) 40 mg DAILY PO 05/27/16 09:00 06/26/16 08:59 05/29/16 10:13 Pantoprazole Sodium (Protonix) 40 mg Q24H IV 05/23/16 23:00 05/27/16 09:16 DC 05/26/16 22:09 Propofol 1000 mg/ IV Miscellaneous Supplies 100 ml @ 0 mls/hr Q0M IV 05/24/16 02:30 05/26/16 17:38 DC 05/26/16 15:29 Propofol/IV Miscellaneous Supplies (Diprivan) 100 ml @ 0 mls/hr Q0M IV 05/23/16 23:00 05/24/16 02:45 DC Racepinephrine (S-2) 0.5 ml Q6HP PRN INH STRIDOR 05/26/16 19:45 06/25/16 19:44 05/27/16 12:22 Allergies Coded Allergies: Penicillins (Unverified Allergy, Unknown, 05/23/16) VS,Fishbone, I+O VS, Fishbone, I+O Laboratory Tests 05/29/16 05:45 Calcium Level 8.4 L, Phosphorus Level 3.3, Aspartate Amino Transf (AST/SGOT) 27 , Alanine Aminotransferase (ALT/SGPT) 48, Lactate Dehydrogenase 196, Total Creatine Kinase 134, Alkaline Phosphatase 86, Total Bilirubin 0.9, Triglycerides Level 294 H, Cholesterol Level 215 H, Total Protein 6.9, Albumin 3.3, Red Blood Count 5.13, Mean Corpuscular Volume 95.1, Mean Corpuscular Hemoglobin 32.2, Mean Corpuscular Hemoglobin Concent 33.9, Red Cell Distribution Width 12.7, Neutrophils (%) (Auto) 70.8 H, Lymphocytes (%) (Auto) 19.6 L, Monocytes (%) (Auto) 5.3 H, Eosinophils (%) (Auto) 1.6, Basophils (%) ( Auto) 0.5, Neutrophils # (Auto) 8.3 H, Lymphocytes # (Auto) 2.3, Monocytes # ( Auto) 0.6, Eosinophils # (Auto) 0.2, Basophils # (Auto) 0.0 Vital Signs Date Time Temp Pulse Resp B/P Pulse Ox O2 Delivery O2 Flow Rate FiO2 05/29/16 06:00 98.3 81 18 158/78 91 Room Air 05/28/16 11:28 40 05/28/16 04:00 3.0 I&O- Last 24 Hours up to 6 AM 05/29/16 05:59 Intake Total 5550 ml Output Total 3200 ml Balance 2350 ml BETH WILSON MD May 29, 2016 11:15
[2016-05-29] MEDS: LevoFLOXacin IV 750 MG in APPROPRIATE DILUENT 1 EA IV SCH (12:15)
[2016-05-29] MEDS: NYSTATIN 500,000 U/5 ML SUSP UDC SS SCH ×2 (13:58→20:56)
[2016-05-29 14:00] VITALS: BP 162/88
[2016-05-29] MEDS: CLINDAMYCIN 150 MG CAP PO SCH (20:56)
[2016-05-29 22:00] VITALS: BP 145/83
[2016-05-30] MEDS: IPRATROPIUM 0.5MG/ALBUTEROL 2.5MG INH SOL UD 3ML (DUONEB)(J7620) NEB SCH ×2 (03:49→08:26)
[2016-05-30 06:00] VITALS: BP 121/60
[2016-05-30] MEDS ORDERED: LevoFLOXacin 500 MG TABLET PO SCH (06:00)
[2016-05-30] MEDS: HEPARIN SOD (PORCINE) 5000 UNITS/ML VIAL SC SCH ×2 (06:00→09:01)
[2016-05-30] MEDS: CLINDAMYCIN 150 MG CAP PO SCH (06:05)
[2016-05-30 06:28] LABS: BASO # 0.1 K/mm3 (0.0-0.2); BASO % 0.8 % (0.0-1.0); EOS # 0.3 K/mm3 (0.0-0.50); EOS % 2.3 % (0.0-3.0); LARGE UNSTAINED CELL # 0.2 K/mm3 (0.0-0.4); LARGE UNSTAINED CELL % 2.1 % (0.0-4.0); LYMPH # 2.3 K/mm3 (1.5-4.5); LYMPH % 20.1 % (24.0-44.0); MEAN CORPUSCULAR HGB CONC 35.1 g/dl (32.0-36.5); MONO # 0.7 K/mm3 (0.0-0.8); MONO % 6.3 % (0.0-5.0); NEUTROPHILS # 7.8 K/mm3 (1.8-7.7); NEUTROPHILS % 68.5 % (36.0-66.0); PLATELET COUNT, AUTOMATED 265 k/mm3 (150-450); RED CELL DISTRIBUTION WIDTH 12.7 % (11.5-14.5); WHITE BLOOD COUNT 11.4 K/mm3 (4.0-10.0)
[2016-05-30 06:39] LABS: ALBUMIN 3.3 GM/DL (3.2-5.2); ALBUMIN/GLOBULIN RATIO 0.94 (1.00-1.93); ALKALINE PHOSPHATASE 84 U/L (45-117); ALT/SGPT 60 U/L (12-78); ANION GAP 10 MEQ/L (8-16); AST/SGOT 32 U/L (15-37); BILIRUBIN,TOTAL 0.9 MG/DL (0.2-1.0); BLOOD UREA NITROGEN 18 MG/DL (7-18); CALCIUM LEVEL 8.3 MG/DL (8.5-10.1); CARBON DIOXIDE LEVEL 25 MEQ/L (21-32); CHLORIDE LEVEL 106 MEQ/L (98-107); CHOLESTEROL LEVEL 210 MG/DL (< 200); CREATININE FOR GFR 0.85 MG/DL (0.70-1.30); GLOMERULAR FILTRATION RATE > 60.0 (>60); GLUCOSE, FASTING 91 MG/DL (70-105); MAGNESIUM LEVEL 2.3 MG/DL (1.8-2.4); PHOSPHORUS LEVEL 3.7 MG/DL (2.5-4.9); POTASSIUM SERUM 3.9 MEQ/L (3.5-5.1); SODIUM LEVEL 141 MEQ/L (136-145); TOTAL PROTEIN 6.8 GM/DL (6.4-8.2); TRIGLYCERIDES LEVEL 228 MG/DL (<150)
[2016-05-30] MEDS ORDERED: LEVA500T PO (07:29)
[2016-05-30] MEDS ORDERED: NYST50SS SS (07:29)
[2016-05-30] MEDS ORDERED: CLEO150C PO (07:29)
[2016-05-30] MEDS ORDERED: MAPA325T2 PO (07:29)
--- NOTE | 2016-05-30 08:29 | REP ---
Portable chest, 05/28/2016, 04:39 a.m., single frontal view, patient sitting: Comparison is 05/27/2016. The lung nj are clear. Cardiac size is normal. The stephani, mediastinum, and bony thorax are unremarkable. The previous retrocardiac density is no longer identified. Impression: Essentially negative portable chest. Signed by Natalio Matthews MD 05/28/2016 08:17 A
--- NOTE | 2016-05-30 08:31 | IPN ---
DATE: 05/28/2016 SUBJECTIVE: This is a 46-year-old male who was seen and examined at bedside. Overnight no reported acute events. He was somewhat restless and agitated and nicotine patch was started. The patient was admitted on 05/23/2016, for respiratory failure secondary to acute epiglottitis requiring mechanical ventilation. He underwent a video laryngoscopy on 05/26/2016, for reevaluation of his epiglottis which showed that it was no longer inflamed and was extubated on the same day. Today he denies any shortness of breath, chest pain, palpitations, fevers, chills. Does report coughing, but only after nebulizer treatment. Per staff, there is concern for possible abuse of unknown substance as the patient gets easily agitated and restless. The patient himself reports that the last time he was abusing opioids was approximately 5 years ago and underwent detoxification in [place] and in the last 5 years has been clean. However, later he admitted to nursing staff that he was abusing pot. He declined offer for any benzodiazepine to help with his agitation due to concern of recurrence of dependency to controlled substance. OBJECTIVE: VITAL SIGNS: Blood pressure 158/80, heart rate 83, temperature 98.9, respiration rate 16, pulse oximetry 96% on room air. Intake and output last 24 hours: 2850 and 1525. GENERAL: Patient is sitting in bed, comfortable, in no acute distress. He is alert, awake, oriented times three, pleasant and cooperative. HEENT: Face appears flushed, but extraocular movement intact. Moist oral mucosa. Trachea is midline. CHEST: Symmetric chest rise, no accessory muscle use. Breath sounds clear to auscultation without wheezing, rales, or rhonchi. HEART: Regular rate and rhythm with normal S1, S2. Could not appreciate any murmurs. ABDOMEN: Soft, nontender, nondistended. Bowel sounds present. No guarding, no rebound. EXTREMITIES: No pedal edema. Pedal pulses present bilaterally. LABORATORY DATA: WBC 10.5, improved from yesterday at 13.2, hemoglobin 16, hematocrit 47.8, platelets 290, neutrophils 71. Sodium 143, potassium 3.9, chloride 108, carbon dioxide 25, BUN 18, creatinine 0.73, glucose 106, BNP 49, CRP 1.82, triglycerides 330, cholesterol 208. Methicillin-resistant Staphylococcus aureus (MRSA) screen is negative. Blood cultures negative after 72 hours. Chest xray is without infiltrate or effusion. IMPRESSION AND PLAN: Mr. Chaney is a 46-year-old male admitted for acute epiglottitis status post mechanical ventilation. 1. Acute epiglottitis, resolving. Was extubated on 05/26/2016. Previously on dexamethasone. Racemic epinephrine as needed, with last dose yesterday at noon. On day #4 of Levaquin 750 and clindamycin 900 every 8 hours[address] Case discussed with Dr. Cosby, otolaryngology (ENT), who at this time recommends IV antibiotics as he still has very poor oral intake. The plan is to hopefully have him on oral Levaquin 500 close to discharge. Greatly appreciate Dr. Sanders and Dr. Cosby' s assistance. 2. Anxiety. Patient was offered benzodiazepine, however he declined this due to concern for dependency. He was started on hydroxyzine for agitation and anxiety this morning. 3. Suspected obstructive sleep apnea. The patient will require outpatient evaluation with Dr. Pedersen for official sleep study and mask fitting. Will need to schedule 2 weeks whenever he is amenable to discharge with Dr. Pedersen. 4. Tobacco abuse. He was started on nicotine patch last night. 5. Deep venous thrombosis (DVT) prophylaxis. Sequential compression devices (SCDs), thromboembolism deterrents (TEDs), and heparin. My preceptor for this patient encounter was Dr. Shailesh Mcrae. The preceptor was physically present in the building during the encounter and was fully available. As needed, all aspects of the patient interview, examination, medical decision making process, and medical care plan development were reviewed and approved by the preceptor. The preceptor is aware and concurs with the plan as stated in the body of this note and will attest to such by his/her cosignature. RAVIN
[2016-05-30] MEDS: NICOTINE 14 MG/24 HR TRANSDERMAL TD SCH (09:00)
[2016-05-30] MEDS: PANTOPRAZOLE 40MG TAB (PROTONIX) PO SCH (09:00)
[2016-05-30] MEDS: NYSTATIN 500,000 U/5 ML SUSP UDC SS SCH (09:00)
[2016-05-30] MEDS ORDERED: NICO14PA TD (09:58)
[2016-05-30] MEDS ORDERED: ALBU17IN INH (11:03)
--- NOTE | 2016-05-30 17:44 | DSES ---
DATE OF ADMISSION: 05/23/2016 DATE OF DISCHARGE: 05/30/2016 PRIMARY CARE PROVIDER: None. Will be assigned to resident clinic. CONSULTANTS: Dr. Zafar Pedersen, pulmonology. Dr. Brandon Cosby, otolaryngology (ENT). PROCEDURES: Video laryngoscopy using GlideScope on 05/26/2016. COMPLICATIONS: None. DISCHARGE DIAGNOSES: 1. Acute epiglottitis. 2. Tobacco abuse. 3. Probable obstructive sleep apnea (MOLLY). 4. Substance abuse. 5. Elevated triglycerides. 6. Prediabetes, hemoglobin A1C 6. 7. Obesity. Body mass index (BMI) 35. SECONDARY ADMITTING DIAGNOSIS: 1. Remote history of substance abuse. BRIEF HOSPITAL COURSE: Mr. Chaney is a 46-year-old male with past medical history as mentioned above, who presented to the emergency department (ED) on 05/23/2016 for shortness of breath, found to have acute epiglottitis. Prior to admission he reportedly was not feeling well for 1-2 days, complained of sore throat and eventually had difficulty handling his secretions. He initially presented to urgent care, was then immediately transferred to [facility] where, in the emergency room (ER), he was seen sitting forward and drooling. For complete history and physical, please see dictation by Dr. Pedersen on admission. He had xray of his neck showing thickening of epiglottis and hypopharyngeal soft tissue. CT neck confirmed epiglottitis. Because of difficulty protecting his airway, he was immediately intubated, was started on Decadron and epinephrine nebulization. Was also started on Levaquin and clindamycin and evaluated by ENT. Antibiotic dosing and duration have been per ENT. With mechanical intervention and steroid treatments, racemic epinephrine, his condition slowly improved. He underwent reevaluation with video laryngoscopy with a GlideScope on 05/26/2016, which showed epiglottis no longer inflamed and swollen and supraglottic larynx appeared to be back to normal. He was then extubated on the same day and his diet was slowly advanced. He was found to have elevated triglycerides and this was believed to be secondary to propofol use for intubation. He had impaired glucose believed to be both secondary to steroids and also prediabetes. For his tobacco abuse, patient is adamant about not returning to smoking again and would like to continue with his nicotine patch. While he had episodes of restlessness and was somewhat agitated, he declined offer for benzodiazepine as he denied any history of alcohol abuse. On 05/30/2016, because of his significantly improved condition and able to tolerate a regular diet, he was amenable to be discharged. PHYSICAL EXAMINATION: At the time of discharge: VITAL SIGNS: Blood pressure 121/60, heart rate 61, respiration rate 16, temperature 97.3, pulse oximetry 94% on room air. Intake and output: 5570 and 2900. GENERAL: Showed patient to be sitting in bed, comfortable, in no acute distress. He is alert, awake, oriented times three, pleasant and cooperative. HEENT: Normocephalic, atraumatic. Moist oral mucosa. NECK: Supple, trachea midline. CHEST: Symmetric chest rise. No accessory muscle use. Breath sounds were clear to auscultation bilaterally. HEART: Regular rate and rhythm. S1, S2 present. ABDOMEN: Soft, nontender, nondistended. Bowel sounds present. No guarding. No rebound. EXTREMITIES: No pedal edema. Pedal pulses present bilaterally. LABORATORY DATA: WBC 11.4, hemoglobin 16.4, hematocrit 46.8, platelets 265, neutrophils 68.5. Sodium 141, potassium 3.9, chloride 106, carbon dioxide 25, BUN 18, creatinine 0.85, glucose 91, calcium 8.3, phosphorous 3.7, magnesium 2.3, triglycerides 228 , improved from yesterday at 294, cholesterol 210. Blood cultures negative after 5 days. Sputum few yeast-like organisms, normal joseph present. DISCHARGED: Home. ACTIVITY: As tolerated. CONDITION: Stable. DIET: Low fat, low cholesterol diet. Recommend decreased carbohydrate intake due to his prediabetic state. Continue avoiding tobacco use. FOLLOW UP: Resident clinic next week. Dr. Cosby [address] Pedersen in 2 weeks for evaluation for suspected obstructive sleep apnea (MOLLY). DISCHARGE MEDICATIONS: - Tylenol 650 mg every 6 hours as needed - clindamycin 300 mg every 8 hours for another 4 days - Levaquin 500 mg by mouth daily for another 4 days - Nicoderm patch daily - nystatin swish and swallow twice a day 5 mL Continue the following home medications: - albuterol two puffs inhaled every 4 hours as needed - multivitamin DISCHARGE INSTRUCTIONS: The patient was advised that because of antibiotic use he is at risk for a Clostridium (C) difficile infection and recommended patient to take probiotic and yogurt. Patient was instructed to return to the hospital if he has worsening or recurrent symptoms or anything else concerning to patient or family. All of this explained to the patient at time of discharge and all questions answered. TIME SPENT: 40 minutes. My preceptor for this patient encounter was Dr. Shailesh Mcrae. The preceptor was physically present in the building during the encounter and was fully available. As needed, all aspects of the patient interview, examination, medical decision making process, and medical care plan development were reviewed and approved by the preceptor. The preceptor is aware and concurs with the plan as stated in the body of this note and will attest to such by his/her cosignature. cc: [facility] Resident Clinic Dr. Zafar ALICIA
== END 2016-05-30 11:19 | disposition home or self-care (01) | DRG 153 ==
LOC: M ED 19:35 → M ED INP 22:52 → M ICU 05-24 01:48 → M MSPAV 05-28 14:04
PROVIDERS: ADMIT Internal Medicine Pulmonary Disease; ATTEND Internal Medicine
PROC: 5A1945Z Respiratory Ventilation, 24-96 Consecutive Hours (ICD-10-PCS; principal; 2016-05-23)
PROC: 0CJS8ZZ Inspection of Larynx, Via Natural or Artificial Opening Endoscopic (ICD-10-PCS; 2016-05-26)
DX: J05.11 Acute epiglottitis with obstruction (principal); E78.1 Pure hyperglyceridemia; G47.33 Obstructive sleep apnea (adult) (pediatric); F17.200 Nicotine dependence, unspecified, uncomplicated; E66.9 Obesity, unspecified; F41.9 Anxiety disorder, unspecified; R73.03 Prediabetes; R73.9 Hyperglycemia, unspecified; F11.21 Opioid dependence, in remission; Z79.899 Other long term (current) drug therapy; Z68.35 Body mass index [BMI] 35.0-35.9, adult; Z88.0 Allergy status to penicillin

== ENCOUNTER → 2016-07-29 | Outpatient (REF) | payer OTHER ==
[~2016-07-29] MED LIST: ALBU17IN INH; CLEO150C PO; LEVA500T PO; MAPA325T2 PO; NICO14PA TD; NYST50SS SS; VITMTA PO
[2016-07-29 11:26] LABS: MEAN CORPUSCULAR HEMOGLOBIN 32.1 pg (27.0-33.0); MEAN CORPUSCULAR HGB CONC 33.8 g/dl (32.0-36.5); MEAN CORPUSCULAR VOLUME 95.1 fl (80.0-96.0); RED CELL DISTRIBUTION WIDTH 13.2 % (11.5-14.5); WHITE BLOOD COUNT 6.9 K/mm3 (4.0-10.0)
[2016-07-29 11:39] LABS: ALBUMIN 3.9 GM/DL (3.2-5.2); ALKALINE PHOSPHATASE 79 U/L (45-117); ALT/SGPT 37 U/L (12-78); ANION GAP 7 MEQ/L (8-16); AST/SGOT 16 U/L (15-37); BILIRUBIN,TOTAL 0.8 MG/DL (0.2-1.0); BLOOD UREA NITROGEN 13 MG/DL (7-18); CALCIUM LEVEL 8.4 MG/DL (8.5-10.1); CARBON DIOXIDE LEVEL 30 MEQ/L (21-32); CHLORIDE LEVEL 105 MEQ/L (98-107); CHOLESTEROL LEVEL 188 MG/DL (<200); CREATININE FOR GFR 0.91 MG/DL (0.70-1.30); GLOMERULAR FILTRATION RATE > 60.0 (>60); GLUCOSE, FASTING 101 MG/DL (70-105); POTASSIUM SERUM 4.9 MEQ/L (3.5-5.1); SODIUM LEVEL 142 MEQ/L (136-145); TOTAL PROTEIN 6.5 GM/DL (6.4-8.2); TRIGLYCERIDES LEVEL 109 MG/DL (<150)
== END ==
LOC: M SFHCPLAZ 08:54
PROVIDERS: ATTEND Family Medicine
DX: Z13.21 Encounter for screening for nutritional disorder (principal); Z13.220 Encounter for screening for lipoid disorders; Z13.1 Encounter for screening for diabetes mellitus

== ENCOUNTER → 2016-10-03 | Outpatient (REF) | payer OTHER | LOC: M SFHCPLAZ 15:10 | PROVIDERS: ATTEND Family Medicine | DX: R73.01 Impaired fasting glucose (principal) ==

== ENCOUNTER 2019-10-11 06:44 | Inpatient (IN) | payer MEDICAID, OTHER, SELFPAY ==
[2019-10-11] VITALS (8 sets, daily range): BP systolic 130–158; BP diastolic 72–87
[~2019-10-11] VITALS: Ht 172.7 cm; Wt 115.9 kg
[~2019-10-11 06:44] MED LIST changes: +LEVA1TAB2 PO; -LEVA500T PO; -MAPA325T2 PO; +MAPA325T8 PO
[2019-10-11] MEDS ORDERED: NS 1,000 ML IV ONE ×2 (07:00→08:15)
[2019-10-11] MEDS ORDERED: ISOVUE-370 76% 100ML VIAL As Ordered ONE (07:03)
[2019-10-11] MEDS ORDERED: MORPHINE 4 MG/ML 1ML VIAL/SYRINGE (J2270) IV ONE ×2 (07:15→08:15)
[2019-10-11] MEDS ORDERED: KETOROLAC 30 MG/ML 1ML VIAL IV ONE (07:15)
[2019-10-11] MEDS ORDERED: ONDANSETRON 4MG/2ML VIAL IV ONE (07:15)
[2019-10-11 07:22] LABS: BASO # 0.1 10^3/uL (0.0-0.2); BASO % 0.5 % (0.0-1.0); EOS # 0.3 10^3/uL (0.0-0.5); HEMATOCRIT 56.3 % (42.0-52.0); HEMOGLOBIN 19.2 g/dl (13.5-17.5); LYMPH # 4.7 10^3/uL (1.5-5.0); LYMPH % 29.8 % (24.0-44.0); MEAN CORPUSCULAR HEMOGLOBIN 31.5 pg (27.0-33.0); MEAN CORPUSCULAR HGB CONC 34.1 g/dl (32.0-36.5); MEAN CORPUSCULAR VOLUME 92.3 fl (80.0-96.0); MONO # 0.9 10^3/uL (0.0-0.8); MONO % 5.5 % (0.0-5.0); NEUTROPHILS # 9.7 10^3/uL (1.5-8.5); NEUTROPHILS % 61.7 % (36.0-66.0); PLATELET COUNT, AUTOMATED 374 10^3/uL (150-450); WHITE BLOOD COUNT 15.7 10^3/uL (4.0-10.0)
[2019-10-11 07:27] LABS: INR 0.94; PROTHROMBIN TIME 12.3 SECONDS (11.8-14.0)
[2019-10-11 07:28] LABS: PARTIAL THROMBOPLASTIN TIME 29.5 SECONDS (25.0-38.4)
--- NOTE | 2019-10-11 07:50 | REPVR ---
PROCEDURE INFORMATION: Exam: CT Angiography Chest With Contrast Exam date and time: 10/11/2019 7:25 AM Age: 49 years old Clinical indication: Other: Abd pain tearing into back RO dissection TECHNIQUE: Imaging protocol: Computed tomographic angiography of the chest with intravenous contrast. 3D rendering: MIP and/or 3D reconstructed images were created by the technologist. Radiation optimization: All CT scans at this facility use at least one of these dose optimization techniques: automated exposure control; mA and/or kV adjustment per patient size (includes targeted exams where dose is matched to clinical indication); or iterative reconstruction. Contrast material: ISOVUE 370; Contrast volume: 100 ml; Contrast route: IV; COMPARISON: CR PORTABLE CHEST X-RAY 05/28/2016 4:36 AM FINDINGS: Pulmonary arteries: Normal. No pulmonary emboli. Aorta: Unremarkable. No aortic aneurysm. No aortic dissection. No acute intramural thoracic aortic hematoma. Lungs: Unremarkable. No consolidation. No masses. Pleural space: Unremarkable. No pneumothorax. No pleural effusion. Heart: Unremarkable. No cardiomegaly. No pericardial effusion. No evidence of coronary artery calcification. Lymph nodes: Unremarkable. No enlarged lymph nodes. Bones/joints: Unremarkable. No acute fracture. Soft tissues: Unremarkable. IMPRESSION: No acute findings. No evidence of acute aortic dissection. Both lungs are well-aerated. Electronically signed by: Carlos Ovalle On 10/11/2019 07:50:03 AM
[2019-10-11 07:54] LABS: ALBUMIN 4.3 GM/DL (3.2-5.2); ALT/SGPT 31 U/L (12-78); BILIRUBIN,DIRECT 0.2 MG/DL (0.0-0.2); BILIRUBIN,TOTAL 1.5 MG/DL (0.2-1.0); ETHYL ALCOHOL (ETHANOL) < 0.003 % (0.000-0.010); LIPASE 179 U/L (73-393); TOTAL PROTEIN 7.7 GM/DL (6.4-8.2)
--- NOTE | 2019-10-11 08:08 | REP ---
Clinical: Tearing back pain. Technique: PA and lateral. Comparison: 05/28/2016. Findings: Mediastinum and cardiac silhouette are normal. Lung nj are clear. No focal consolidation, effusion, or pneumothorax. Skeletal structures are intact. Impression: No acute cardiopulmonary process appreciated. Electronically Signed by Jevon Del Real MD 10/11/2019 07:59 A
--- NOTE | 2019-10-11 08:13 | REPVR ---
PROCEDURE INFORMATION: Exam: CT Angiography Abdomen and Pelvis With Contrast Exam date and time: 10/11/2019 7:25 AM Age: 49 years old Clinical indication: Other: Abd pain tearing into back RO dissection TECHNIQUE: Imaging protocol: Computed tomographic angiography of the abdomen and pelvis with intravenous contrast material. 3D rendering: MIP and/or 3D reconstructed images were created by the technologist. Radiation optimization: All CT scans at this facility use at least one of these dose optimization techniques: automated exposure control; mA and/or kV adjustment per patient size (includes targeted exams where dose is matched to clinical indication); or iterative reconstruction. Contrast material: [id number]; Contrast volume: 100 ml; Contrast route: IV; COMPARISON: No relevant prior studies available. FINDINGS: Aorta: No aortic aneurysm. No aortic dissection. Celiac trunk and mesenteric arteries: No occlusion or significant stenosis. Renal arteries: No occlusion or significant stenosis. Right iliac arteries: No occlusion or significant stenosis. Left iliac arteries: No occlusion or significant stenosis. Liver: Mild diffuse fatty infiltration of the liver is present with some focal fatty sparing around the gallbladder fossa. Gallbladder and bile ducts: A small amount of inflammatory change is seen around the neck of the gallbladder lateral to the second part of the duodenum. In addition there is a questionable full-thickness ulceration of the lateral wall of the duodenum on image 53 of series 406. There are small foci of free intraperitoneal air present in the anterior right upper quadrant abdomen on images 28 and 49 of series 406. In addition there is a small volume of free fluid present around the right lobe of the liver and in the pelvis. This may represent an acute perforated duodenal ulcer, possibly partially walled-off. Questionable CT artifacts versus tiny gallstones on images 48 and 49 of series 406. I would recommend a gallbladder ultrasound for further workup. Pancreas: Unremarkable. No mass. No ductal dilation. Spleen: Unremarkable. No splenomegaly. Adrenals: Slightly bulky adrenals are seen bilaterally, measuring up to 2.2 cm in transverse diameter. Kidneys and ureters: Unremarkable. No solid mass. No hydronephrosis. Stomach and bowel: Patchy areas of abnormal hypodense mucosal thickening is seen throughout the colon suggestive of an acute colitis versus sequelae of prior chronic colitis episodes. Crohn colitis is a possibility in view of the duodenal pathology. No evidence of megacolon or colonic perforation. The small bowel distally appears normal. Appendix: No evidence of appendicitis. Intraperitoneal space: See "Gallbladder and bile ducts" finding. Lymph nodes: Unremarkable. No enlarged lymph nodes. Bladder: Unremarkable. No mass. Reproductive: Unremarkable as visualized. Bones/joints: No acute fracture. No dislocation. Soft tissues: Small bilateral inguinal hernias are present, containing fat only. IMPRESSION: 1. Acute perforated duodenal ulcer. A small amount of inflammatory change is seen around the neck of the gallbladder lateral to the second part of the duodenum. In addition there is a questionable full-thickness ulceration of the lateral wall of the second part of the duodenum on image 53 of series 406. There are small foci of free intraperitoneal air present in the anterior right upper quadrant abdomen on images 28 and 49 of series 406, with a small volume of free fluid present around the right lobe of the liver and in the pelvis. This may represent an acute perforated duodenal ulcer, possibly partially walled-off. 2. Questionable CT artifacts versus tiny gallstones on images 48 and 49 of series 406. I would recommend a gallbladder ultrasound for further workup. 3. Mild diffuse fatty infiltration of the liver is present with some focal fatty sparing around the gallbladder fossa. 4. Patchy areas of abnormal hypodense mucosal thickening is seen throughout the colon suggestive of an acute colitis versus sequelae of prior chronic colitis episodes. Crohn colitis is a possibility in view of the duodenal pathology. No evidence of megacolon or colonic perforation. The small bowel distally appears normal. 5. Slightly bulky adrenals are seen bilaterally, measuring up to 2.2 cm in transverse diameter. The CT density of the adrenal masses is indeterminate for adenoma versus other pathology. Recommend follow-up adrenal CT exam without IV contrast. (Reference: Management of Incidental Adrenal Masses: A White Paper of the ACR Incidental Findings Committee, [facility] [place] [facility], 2017;14:[id number].) 6. Small bilateral inguinal hernias are present, containing fat only. THIS REPORT CONTAINS FINDINGS THAT MAY BE CRITICAL TO PATIENT CARE.: The findings were discussed via telephone conference with Dr. Aragon at 10/11/2019 8:00 AM EDT. Electronically signed by: Carlos Ovalle On 10/11/2019 08:13:11 AM
[2019-10-11] MEDS ORDERED: MEROPENEM INJ 1 GM in IV 1 EA IV ONE (08:15)
[2019-10-11] MEDS ORDERED: METOCLOPRAMIDE INJ 10MG/2ML VIAL (J2765 PER 1) IV ONE (08:15)
[2019-10-11] MEDS ORDERED: IBUP-1422 PO (08:18)
[2019-10-11] MEDS ORDERED: ALBU8.5H INH (08:18)
[2019-10-11] MEDS ORDERED: MORPHINE 2 MG/ML 1ML VIAL (J2270) As Ordered ONE (09:24)
[2019-10-11] MEDS ORDERED: LEVALBUTEROL 1.25 MG/0.5 ML CONCENTRATE NEB As Ordered ONE (09:24)
[2019-10-11] MEDS ORDERED: LEVALBUTEROL 1.25 MG/0.5 ML CONCENTRATE NEB INH ONE (09:30)
[2019-10-11] MEDS ORDERED: BUPIVACAINE/EPIN 0.25% 30 ML VIAL As Ordered ONE (09:43)
[2019-10-11] MEDS ORDERED: MORPHINE 2 MG/ML 1ML VIAL (J2270) IV ONE (09:45)
[2019-10-11] MEDS ORDERED: ONDANSETRON 4MG/2ML VIAL As Ordered ONE (10:15)
[2019-10-11] MEDS ORDERED: MIDAZOLAM INJ 2MG/2ML VIAL (J2250 PER 1MG) As Ordered ONE (10:15)
[2019-10-11] MEDS ORDERED: fentaNYL 250 MCG/5 ML INJECTION (J3010) As Ordered ONE (10:15)
[2019-10-11] MEDS ORDERED: ACETAMINOPHEN 1000MG 100ML IV BTL (OFIRMEV) (J0131 PER 10MG) As Ordered ONE (10:15)
[2019-10-11] MEDS ORDERED: ROCURONIUM BROMIDE 50 MG/5 ML VIAL As Ordered ONE ×2 (10:15→10:19)
[2019-10-11] MEDS ORDERED: SUGAMMADEX SODIUM 500 MG/5 ML VIAL (BRIDION) As Ordered ONE (10:15)
[2019-10-11] MEDS ORDERED: ETOMIDATE INJ 20MG/10ML VIAL As Ordered ONE (10:15)
[2019-10-11] MEDS ORDERED: LIDOCAINE 2% 100MG/5ML SDV (FOR ANES.) As Ordered ONE ×2 (10:15→10:52)
[2019-10-11] MEDS ORDERED: propofoL 200 MG/20 ML VIAL As Ordered ONE ×2 (10:15→10:23)
[2019-10-11] MEDS ORDERED: dexameTHASONE 4 MG/ML 1ML VIAL (J1100 PER 1MG) As Ordered ONE (10:15)
[2019-10-11] MEDS ORDERED: SUCCINYLCHOLINE 100 MG/5 ML SYRINGE (J0330) As Ordered ONE (10:19)
[2019-10-11] MEDS: NS 1,000 ML IV SCH ×2 (11:22→20:10)
[2019-10-11] MEDS ORDERED: ALBUTEROL 90 MCG/ACT 8GM HFA INHALER INH PRN (11:30)
[2019-10-11] MEDS ORDERED: ACETAMINOPHEN TAB 650MG DOSE (2X325MG) PO PRN (11:30)
[2019-10-11] MEDS: SUCRALFATE 1 GM TAB PO SCH ×3 (12:00→20:08)
[2019-10-11] MEDS ORDERED: LR 1,000 ML IV SCH (12:15)
[2019-10-11] MEDS ORDERED: fentaNYL 100 MCG/2 ML INJECTION (J3010) IV PRN (12:15)
[2019-10-11] MEDS ORDERED: ONDANSETRON 4MG/2ML VIAL IV PRN (12:15)
[2019-10-11] MEDS ORDERED: oxyCODONE 5MG TAB PO PRN (12:15)
[2019-10-11] MEDS ORDERED: HYDROMORPHONE HCL 0.5 MG/ 0.5 ML SYRINGE (J1170 PER 1) As Ordered ONE (12:21)
[2019-10-11] MEDS: HYDROMORPHONE HCL 0.5 MG/ 0.5 ML SYRINGE (J1170 PER 1) IV PRN ×2 (12:22→12:33)
[2019-10-11] MEDS ORDERED: oxyCODONE 5MG TAB As Ordered ONE (12:30)
--- NOTE | 2019-10-11 14:20 | REP ---
REASON FOR EXAM: Status post recent placement of a nasogastric tube. COMPARISON: Multiple, the latest earlier today. The technique utilized in obtaining the radiograph has magnified the cardiac silhouette and accentuated the interstitial markings. Since the last examination, the nasogastric tube has been placed, the tip is beneath the diaphragmatic surface of the left lung presumably within the stomach fundal region. The proximal port of the tube appears to be at the level of the gastroesophageal junction. The lung nj are unchanged from the prior exam. The cardiomediastinal silhouette is unchanged from the prior exam. The osseous structures are unchanged from the prior exam. IMPRESSION: Nasogastric tube as described above. Otherwise, no significant change. Electronically Signed by Delbert Ribeiro DO 10/11/2019 03:06 P
[2019-10-11] MEDS: KETOROLAC 30 MG/ML 1ML VIAL IV PRN ×2 (14:35→22:22)
[2019-10-11] MEDS: ERTAPENEM SODIUM 1 GM in NS MINI-BAG PLUS 50 ML IV SCH (15:10)
[2019-10-11] MEDS: MORPHINE 2 MG/ML 1ML VIAL (J2270) IV PRN ×2 (15:19→19:58)
--- NOTE | 2019-10-11 15:57 | ECGEPIP ---
[facility] - ED Test Date: 2019-10-11 Pat Name: JANINA VALENTINE Department: Room: - Gender: Male Senior Specialist: priscilla : 1970 Requested By: RADHIKA Jacobs PA-C Order Number: [id number] Reading MD: Oswaldo Maynard Measurements Intervals Treynor Rate: 70 P: 36 AZ: 156 QRS: 15 QRSD: 145 T: 50 QT: 451 QTc: 487 Interpretive Statements SINUS RHYTHM INDETERMINATE AXIS Prolonged QTc interval RIGHT BUNDLE BRANCH BLOCK Baseline artifact Comparison tracing not on file Electronically Signed on 10-11-2019 15:57:13 EDT by Oswaldo Maynard
[2019-10-11] MEDS: NORCO, ANEXSIA 5/325MG TABLET (HYDROcodone/ACETAMINOPHEN) PO PRN ×2 (17:24→23:41)
[2019-10-11] MEDS: NICOTINE 21MG/24HR 1 EA TRANSDERMAL TD SCH (17:25)
[2019-10-11] MEDS: SENOKOT S TAB PO SCH (19:58)
[2019-10-11] MEDS: PANTOPRAZOLE 40MG VIAL (C9113 PER 1) IV SCH (20:05)
[2019-10-11] MEDS: ONDANSETRON 4MG/2ML VIAL IV PRN (22:51)
[2019-10-12 02:00] VITALS: BP 129/63; O2SAT 97
[2019-10-12] MEDS: NS 1,000 ML IV SCH ×3 (04:04→22:05)
[2019-10-12] MEDS: MORPHINE 2 MG/ML 1ML VIAL (J2270) IV PRN ×2 (04:05→15:15)
[2019-10-12 06:00] VITALS: BP 139/77
[2019-10-12] MEDS: ONDANSETRON 4MG/2ML VIAL IV PRN ×2 (06:22→20:10)
[2019-10-12] MEDS: NORCO, ANEXSIA 5/325MG TABLET (HYDROcodone/ACETAMINOPHEN) PO PRN ×3 (06:22→20:09)
[2019-10-12 06:42] LABS: HEMATOCRIT 46.3 % (42.0-52.0); MEAN CORPUSCULAR HEMOGLOBIN 31.7 pg (27.0-33.0); MEAN CORPUSCULAR HGB CONC 33.9 g/dl (32.0-36.5); MEAN CORPUSCULAR VOLUME 93.5 fl (80.0-96.0); RED BLOOD COUNT 4.95 10^6/uL (4.30-6.10); WHITE BLOOD COUNT 21.1 10^3/uL (4.0-10.0)
[2019-10-12 06:56] LABS: HEMOGLOBIN 15.7 g/dl (13.5-17.5); PLATELET COUNT, AUTOMATED 245 10^3/uL (150-450)
[2019-10-12 07:21] LABS: ALBUMIN 2.5 GM/DL (3.2-5.2); ALT/SGPT 32 U/L (12-78); BILIRUBIN,TOTAL 1.4 MG/DL (0.2-1.0); BLOOD UREA NITROGEN 11 MG/DL (7-18); CALCIUM LEVEL 7.6 MG/DL (8.5-10.1); CARBON DIOXIDE LEVEL 23 MEQ/L (21-32); CHLORIDE LEVEL 109 MEQ/L (98-107); CREATININE FOR GFR 0.79 MG/DL (0.70-1.30); GLOMERULAR FILTRATION RATE > 60.0 (>60); GLUCOSE, FASTING 100 MG/DL (70-100); MAGNESIUM LEVEL 1.7 MG/DL (1.8-2.4); POTASSIUM SERUM 3.9 MEQ/L (3.5-5.1); SODIUM LEVEL 141 MEQ/L (136-145); TOTAL PROTEIN 5.7 GM/DL (6.4-8.2)
[2019-10-12] MEDS: PANTOPRAZOLE 40MG VIAL (C9113 PER 1) IV SCH ×2 (08:55→20:09)
[2019-10-12] MEDS: SUCRALFATE 1 GM TAB PO SCH ×4 (08:56→20:09)
[2019-10-12] MEDS: NICOTINE 21MG/24HR 1 EA TRANSDERMAL TD SCH (08:56)
[2019-10-12] MEDS: SENOKOT S TAB PO SCH ×2 (08:56→20:09)
[2019-10-12] MEDS: ENOXAPARIN 40MG/0.4ML SYRINGE (J1650 PER 10MG) SC SCH (08:56)
[2019-10-12] MEDS: KETOROLAC 30 MG/ML 1ML VIAL IV PRN (09:12)
[2019-10-12 09:20] VITALS: O2SAT 100
[2019-10-12 09:45] VITALS: O2SAT 96
[2019-10-12] MEDS: CHLORASEPTIC SPRAY MT PRN ×4 (09:47→20:17)
[2019-10-12] MEDS ORDERED: MAG SULF 1GM/100ML (MAG RUN) 1 GM in IV 1 EA IV ONE (11:00)
--- NOTE | 2019-10-12 11:40 | HPE ---
DATE OF ADMISSION: 10/11/2019 CHIEF COMPLAINT: Abdominal pain. HISTORY OF PRESENT ILLNESS: Patient is a 49-year-old male who presented overnight with severe abdominal pains that were getting progressively worse. In the emergency room (ER) he was concerned about upper abdomen and chest pains. They did CTA, which revealed free air inside the abdomen with likely perforation of a duodenal ulcer. Because of that, I was called to evaluate. He is in severe pain in distress on exam. He denies any history of heartburn or acid reflux in the past. No recent changes in medication or diet. He does smoke a pack a day. Drinks close to a gallon of sweet tea a day as well. No [id number] medications other than one dose of ibuprofen at night, which he does end up taking that on an empty stomach. No recent trauma or travel. PAST MEDICAL HISTORY: 1. Sleep apnea. 2. Kidney stones. PAST SURGICAL HISTORY: Lithotripsy. SOCIAL HISTORY: He smokes pack a day. Denies drug or alcohol abuse. ALLERGIES: PENICILLINS. HOME MEDICATIONS: Please see medication reconciliation. REVIEW OF SYSTEMS: Pertinent positives and negatives as stated in the history of present illness (HPI). PHYSICAL EXAMINATION: GENERAL: Alert and oriented times three. No acute distress other than some significant abdominal pain. Temperature 97, pulse 70, respirations 22, blood pressure 164/96, pulse oximetry 98% on room air. HEENT: Pupils equally round and react to light and accommodation. HEART: S1, S2, regular rate and rhythm. LUNGS: Clear to auscultation bilaterally. ABDOMEN: Soft, distended, tender to palpation diffusely. Positive peritonitis with positive rebound and guarding. EXTREMITIES: No clubbing, cyanosis, or edema. LABORATORY DATA: White count 15.7, hemoglobin 19.2, platelets 374. Sodium 140, potassium 3.6. IMAGING: CT of the abdomen shows an acute perforated duodenal ulcer. A small amount of inflammatory changes around the neck of the gallbladder lateral to the second part of the duodenum. There is a questionable full-thickness ulceration on the lateral wall the second part of the duodenum. There is a small foci of free air present on the anterior right upper quadrant. It measures 28.9 with a small volume of free fluid present. ASSESSMENT AND PLAN: The patient, again, is a 49-year-old male with perforated duodenal ulcer. Recommendation is to proceed with robotic repair. Risks and benefits of the procedure not limited to, but including, bleeding, infection, hernia formation, damage to surrounding structures, need for further surgery, were discussed in detail with the patient. Informed was obtained. Procedure was planned. Postoperatively, he will be kept in the hospital for least 3-4 days. Likely at this point with the weekend, will keep him nothing by mouth strict until Monday morning, when he can obtain an upper gastrointestinal (GI). If the upper GI shows that the ulceration is sealed, then we will start him on a clear liquid diet and then plan for hopeful discharge as soon as Monday.
[2019-10-12] MEDS: FLUCONAZOLE 200 MG in IV 1 EA IV SCH (12:22)
[2019-10-12 14:00] VITALS: BP 124/60
[2019-10-12] MEDS: ERTAPENEM SODIUM 1 GM in NS MINI-BAG PLUS 50 ML IV SCH (16:58)
--- NOTE | 2019-10-12 21:07 | IPNPDOC ---
Text Note Date of Service The patient was seen on 10/12/19. NOTE No acute events overnight. Pain is much improved. Denies nausea or emesis. No flatus or BM yet. VSSAF NAD abd - soft, TTP appropriate, dressings c/d/i, drain is serosanguinous labs - below A) 49y/o male s/p RA repair of perforated duodenal ulcer P)NGT to LIS IVF abx diflucan ambulate await return of bowel function Carlos Sorto DO VS,Teodoro, I+O VS, Teodoro, I+O Laboratory Tests 10/12/19 06:20 Vital Signs Date Time Temp Pulse Resp B/P (MAP) Pulse Ox O2 Delivery O2 Flow Rate FiO2 10/12/19 20:09 18 Room Air 10/12/19 14:00 97.2 80 124/60 (81) 96 10/12/19 09:20 2.0 I&O- Last 24 Hours up to 6 AM 10/12/19 06:00 Intake Total 7120 ml Output Total 3765 ml Balance 3355 ml MORGAN SORTO DO Oct 12, 2019 21:07
[2019-10-12 22:00] VITALS: BP 136/76
[2019-10-13] MEDS: KETOROLAC 30 MG/ML 1ML VIAL IV PRN ×3 (00:07→23:24)
[2019-10-13] MEDS: NORCO, ANEXSIA 5/325MG TABLET (HYDROcodone/ACETAMINOPHEN) PO PRN ×4 (02:25→20:49)
[2019-10-13] MEDS: NS 1,000 ML IV SCH ×3 (05:58→22:37)
[2019-10-13 06:00] VITALS: BP 162/84
[2019-10-13 06:53] LABS: HEMATOCRIT 44.1 % (42.0-52.0); HEMOGLOBIN 14.8 g/dl (13.5-17.5); MEAN CORPUSCULAR HEMOGLOBIN 31.8 pg (27.0-33.0); MEAN CORPUSCULAR HGB CONC 33.6 g/dl (32.0-36.5); MEAN CORPUSCULAR VOLUME 94.6 fl (80.0-96.0); PLATELET COUNT, AUTOMATED 239 10^3/uL (150-450); RED BLOOD COUNT 4.66 10^6/uL (4.30-6.10); WHITE BLOOD COUNT 16.7 10^3/uL (4.0-10.0)
--- NOTE | 2019-10-13 07:11 | IPNPDOC ---
Text Note Date of Service The patient was seen on 10/13/19. NOTE No acute events overnight. Pain is much improved. Denies nausea or emesis. He is passing flatus, no BM yet. VSSAF NAD abd - soft, TTP appropriate, dressings c/d/i, drain is serosanguinous with a slight green tinge to it labs - below A) 49y/o male s/p RA repair of perforated duodenal ulcer P)dc ngt npo IVF abx diflucan ambulate await return of bowel function UGI tomorrow AM Carlos Sorto DO VS,Fishbone, I+O VS, Fishbone, I+O Laboratory Tests 10/13/19 06:26 Vital Signs Date Time Temp Pulse Resp B/P (MAP) Pulse Ox O2 Delivery O2 Flow Rate FiO2 10/13/19 06:00 97.7 92 20 162/84 (110) 95 10/13/19 02:25 Room Air 10/12/19 09:20 2.0 I&O- Last 24 Hours up to 6 AM 10/13/19 06:00 Intake Total 1462 ml Output Total 3125 ml Balance -1663 ml MORGAN SORTO DO Oct 13, 2019 07:11
[2019-10-13 07:20] LABS: ALBUMIN 2.5 GM/DL (3.2-5.2); ALT/SGPT 24 U/L (12-78); BILIRUBIN,TOTAL 1.2 MG/DL (0.2-1.0); BLOOD UREA NITROGEN 11 MG/DL (7-18); CALCIUM LEVEL 7.8 MG/DL (8.5-10.1); CARBON DIOXIDE LEVEL 23 MEQ/L (21-32); CHLORIDE LEVEL 110 MEQ/L (98-107); CREATININE FOR GFR 0.71 MG/DL (0.70-1.30); GLOMERULAR FILTRATION RATE > 60.0 (>60); GLUCOSE, FASTING 86 MG/DL (70-100); MAGNESIUM LEVEL 2.2 MG/DL (1.8-2.4); POTASSIUM SERUM 4.2 MEQ/L (3.5-5.1); SODIUM LEVEL 143 MEQ/L (136-145); TOTAL PROTEIN 5.4 GM/DL (6.4-8.2)
[2019-10-13 08:00] VITALS: O2SAT 98
[2019-10-13] MEDS: ENOXAPARIN 40MG/0.4ML SYRINGE (J1650 PER 10MG) SC SCH (08:25)
[2019-10-13] MEDS: PANTOPRAZOLE 40MG VIAL (C9113 PER 1) IV SCH ×2 (08:25→20:47)
[2019-10-13] MEDS: SENOKOT S TAB PO SCH ×2 (08:25→20:47)
[2019-10-13] MEDS: NICOTINE 21MG/24HR 1 EA TRANSDERMAL TD SCH (08:25)
[2019-10-13] MEDS: SUCRALFATE 1 GM TAB PO SCH ×4 (08:26→20:47)
[2019-10-13] MEDS: FLUCONAZOLE 200 MG in IV 1 EA IV SCH (12:16)
[2019-10-13 14:00] VITALS: BP 153/86
[2019-10-13] MEDS: ERTAPENEM SODIUM 1 GM in NS MINI-BAG PLUS 50 ML IV SCH (16:31)
[2019-10-13 22:00] VITALS: BP 139/86
[2019-10-14] VITALS (9 sets, daily range): BP systolic 134–156; BP diastolic 78–89; O2SAT 98
[2019-10-14] MEDS: NORCO, ANEXSIA 5/325MG TABLET (HYDROcodone/ACETAMINOPHEN) PO PRN (05:05)
[2019-10-14 05:53] LABS: HEMATOCRIT 40.9 % (42.0-52.0); HEMOGLOBIN 14.1 g/dl (13.5-17.5); MEAN CORPUSCULAR HEMOGLOBIN 32.6 pg (27.0-33.0); MEAN CORPUSCULAR HGB CONC 34.5 g/dl (32.0-36.5); MEAN CORPUSCULAR VOLUME 94.7 fl (80.0-96.0); PLATELET COUNT, AUTOMATED 245 10^3/uL (150-450); RED BLOOD COUNT 4.32 10^6/uL (4.30-6.10); WHITE BLOOD COUNT 13.8 10^3/uL (4.0-10.0)
[2019-10-14] MEDS: NS 1,000 ML IV SCH ×2 (06:16→19:56)
[2019-10-14 06:17] LABS: ALBUMIN 2.3 GM/DL (3.2-5.2); ALT/SGPT 17 U/L (12-78); BILIRUBIN,TOTAL 1.3 MG/DL (0.2-1.0); BLOOD UREA NITROGEN 10 MG/DL (7-18); CALCIUM LEVEL 7.8 MG/DL (8.5-10.1); CARBON DIOXIDE LEVEL 23 MEQ/L (21-32); CHLORIDE LEVEL 109 MEQ/L (98-107); CREATININE FOR GFR 0.62 MG/DL (0.70-1.30); GLOMERULAR FILTRATION RATE > 60.0 (>60); GLUCOSE, FASTING 75 MG/DL (70-100); MAGNESIUM LEVEL 2.1 MG/DL (1.8-2.4); POTASSIUM SERUM 4.1 MEQ/L (3.5-5.1); SODIUM LEVEL 142 MEQ/L (136-145); TOTAL PROTEIN 5.1 GM/DL (6.4-8.2)
[2019-10-14] MEDS: SUCRALFATE 1 GM TAB PO SCH ×2 (07:30→12:00)
[2019-10-14] MEDS: ENOXAPARIN 40MG/0.4ML SYRINGE (J1650 PER 10MG) SC SCH (08:05)
[2019-10-14] MEDS: PANTOPRAZOLE 40MG VIAL (C9113 PER 1) IV SCH ×2 (08:05→20:49)
[2019-10-14] MEDS: SENOKOT S TAB PO SCH (08:05)
[2019-10-14] MEDS: NICOTINE 21MG/24HR 1 EA TRANSDERMAL TD SCH (08:05)
[2019-10-14] MEDS: KETOROLAC 30 MG/ML 1ML VIAL IV PRN (08:16)
[2019-10-14] MEDS ORDERED: GASTROGRAFIN SOLUTION 30ML (Q9963) As Ordered ONE (10:41)
--- NOTE | 2019-10-14 11:03 | IPNPDOC ---
Text Note Date of Service The patient was seen on 10/14/19. NOTE No acute events overnight. Pain is much improved. Denies nausea or emesis. He is passing flatus, no BM yet. VSSAF NAD abd - soft, TTP appropriate, dressings c/d/i, drain is bilious labs - below A) 49y/o male s/p RA repair of perforated duodenal ulcer P)npo IVF abx diflucan ambulate UGI this am Carlos Sorto DO VS,Teodoro, I+O VS, Vedae, I+O Laboratory Tests 10/14/19 05:34 Vital Signs Date Time Temp Pulse Resp B/P (MAP) Pulse Ox O2 Delivery O2 Flow Rate FiO2 10/14/19 06:00 97.9 76 17 135/78 (97) 96 10/14/19 05:35 Room Air 10/12/19 09:20 2.0 I&O- Last 24 Hours up to 6 AM 10/14/19 05:59 Intake Total 3050 ml Output Total 3645 ml Balance -595 ml MORGAN SORTO DO Oct 14, 2019 11:03
[2019-10-14] MEDS ORDERED: OCTREOTIDE ACETATE 100MCG/ML VIAL (J2354 PER 25MCG) SC ONE (12:00)
--- NOTE | 2019-10-14 12:15 | IPNPDOC ---
Text Note Date of Service The patient was seen on 10/14/19. NOTE UGI this am shows a leak on the lateral side of the duodenum. I gave him the option of NGT with octreotide and NPO vs. re-operation. He elected to proceed with re-operation mainly because he didn't want the NGT back in while he is awake. We will plan for surgery this afternoon, and also start him on TPN. Carlos Sorto DO VS,Teodoro, I+O VS, Teodoro, I+O Laboratory Tests 10/14/19 05:34 Vital Signs Date Time Temp Pulse Resp B/P (MAP) Pulse Ox O2 Delivery O2 Flow Rate FiO2 10/14/19 06:00 97.9 76 17 135/78 (97) 96 10/14/19 05:35 Room Air 10/12/19 09:20 2.0 I&O- Last 24 Hours up to 6 AM 10/14/19 06:00 Intake Total 3800 ml Output Total 3565 ml Balance 235 ml MORGAN SORTO DO Oct 14, 2019 12:15
[2019-10-14] MEDS ORDERED: LIDOCAINE 1% MDV 20ML VIAL As Ordered ONE (13:40)
--- NOTE | 2019-10-14 14:59 | REP ---
GASTROGRAFIN UPPER GI The procedure was performed under the direct supervision of Dr. Kendall. The images were reviewed with Dr. Kendall. The on awake counselor film shows no organomegaly or pathological masses. The intestinal gas pattern is nonspecific. There is a drainage catheter seen in the epigastric region. A 50 50 solution of Gastrografin and water was instilled. The oral and pharyngeal stages of deglutition are unremarkable. Esophageal transport is prompt and efficient and there is no esophagitis stricture mucosal ring or hiatal hernia. Gastroesophageal reflux is not demonstrated on this examination. The stomach is grossly normal. The mucosal folds are smooth and regular. There is no evidence of gastritis neoplasm or ulcer disease. There is extravasation of contrast from the lateral portion of the duodenum into the paraduodenal retroperitoneum. There is minimal contrast seen advancing into the descending duodenum. Impression: There is extravasation of contrast from the lateral portion of the duodenum into the paraduodenal retroperitoneum. There is minimal contrast seen advancing into the descending duodenum. These findings were relayed to Dr. Sorto at the time of dictation. Electronically Signed by ABENA Zapata 10/14/2019 11:39 A Electronically Signed by Antonio Kendall MD 10/14/2019 02:50 P
[2019-10-14] MEDS ORDERED: ERTAPENEM 1GM VIAL(INVanz) (J1335 PER 500MG) As Ordered ONE (15:05)
[2019-10-14] MEDS ORDERED: BUPIVACAINE/EPIN 0.25% 30 ML VIAL As Ordered ONE (15:18)
[2019-10-14] MEDS: ERTAPENEM 1GM VIAL(INVanz) (J1335 PER 500MG) IV ONE ×2 (15:27→17:03)
[2019-10-14] MEDS ORDERED: ONDANSETRON 4MG/2ML VIAL As Ordered ONE (15:29)
[2019-10-14] MEDS ORDERED: METOCLOPRAMIDE INJ 10MG/2ML VIAL (J2765 PER 1) As Ordered ONE (15:29)
[2019-10-14] MEDS ORDERED: SUGAMMADEX SODIUM 500 MG/5 ML VIAL (BRIDION) As Ordered ONE (15:29)
[2019-10-14] MEDS ORDERED: fentaNYL 250 MCG/5 ML INJECTION (J3010) As Ordered ONE (15:29)
[2019-10-14] MEDS ORDERED: LIDOCAINE 2% 100MG/5ML SDV (FOR ANES.) As Ordered ONE (15:29)
[2019-10-14] MEDS ORDERED: MIDAZOLAM INJ 2MG/2ML VIAL (J2250 PER 1MG) As Ordered ONE (15:29)
[2019-10-14] MEDS ORDERED: propofoL 200 MG/20 ML VIAL As Ordered ONE (15:29)
[2019-10-14] MEDS ORDERED: ROCURONIUM BROMIDE 50 MG/5 ML VIAL As Ordered ONE ×2 (15:29→16:03)
[2019-10-14] MEDS ORDERED: dexameTHASONE 4 MG/ML 1ML VIAL (J1100 PER 1MG) As Ordered ONE (15:29)
[2019-10-14] MEDS ORDERED: SUCCINYLCHOLINE 100 MG/5 ML SYRINGE (J0330) As Ordered ONE (15:47)
[2019-10-14] MEDS ORDERED: ACETAMINOPHEN 1000MG 100ML IV BTL (OFIRMEV) (J0131 PER 10MG) As Ordered ONE (15:51)
[2019-10-14] MEDS ORDERED: KETOROLAC 60MG 2ML VIAL As Ordered ONE (16:09)
[2019-10-14] MEDS ORDERED: HYDROmorphone HCL 2 MG/ML 1ML VIAL (J1170) As Ordered ONE (16:28)
[2019-10-14] MEDS ORDERED: DESFLURANE 240 ML INHALANT As Ordered ONE (17:25)
[2019-10-14] MEDS ORDERED: FAT EMULSION IV 20% 500 ML IV SCH (18:00)
[2019-10-14] MEDS ORDERED: AMINO AC/ELECTROLYTE/DEX/CALC 2,000 ML IV SCH (18:00)
--- NOTE | 2019-10-14 18:27 | REP ---
Procedure: PICC line insertion with Wilbert The procedure was performed under the direct supervision of Dr. Kendall. The risks and benefits of the procedure were explained to the patient and informed consent was obtained. The right brachial vein was localized using ultrasound guidance. The skin was prepped and draped in a sterile fashion. 2% lidocaine was used as a local anesthetic. Using ultrasound guidance the brachial vein was cannulated and a 0.018 guidewire was inserted and advanced to the SVC using fluoroscopic guidance. The needle was removed and a 5.5 Armenian dilator and peel-away sheath was inserted over the guide wire. A 5.5 Armenian dual lumen catheter was cut to length of 42 cm. The dilator was removed and the catheter was inserted over the guide wire with the tip ending in the SVC. The peel-away sheath was removed and the catheter was flushed with heparinized saline as per Hospital protocol. The catheter was affixed to the skin and a sterile dressing was applied. The patient tolerated the procedure well and there were no immediate complications. 0.2 minutes of fluoro time was utilized for this procedure. Electronically Signed by ABENA Zapata 10/14/2019 03:29 P Electronically Signed by Antonio Kendall MD 10/14/2019 06:18 P
[2019-10-14] MEDS ORDERED: fentaNYL 100 MCG/2 ML INJECTION (J3010) IV PRN (18:30)
[2019-10-14] MEDS ORDERED: ONDANSETRON 4MG/2ML VIAL IV PRN (18:30)
[2019-10-14] MEDS ORDERED: LR 1,000 ML IV SCH (18:30)
[2019-10-14] MEDS: SODIUM CHLORIDE 0.9% INJ 10 ML SYR IV SCH (19:57)
[2019-10-14] MEDS: FLUCONAZOLE 200 MG in IV 1 EA IV SCH (20:07)
[2019-10-14] MEDS: ONDANSETRON 4MG/2ML VIAL IV PRN (20:50)
[2019-10-14] MEDS: MORPHINE 2 MG/ML 1ML VIAL (J2270) IV PRN (20:51)
[2019-10-14] MEDS: ERTAPENEM SODIUM 1 GM in NS MINI-BAG PLUS 50 ML IV SCH (22:24)
[2019-10-14] MEDS: OCTREOTIDE ACETATE 100MCG/ML VIAL (J2354 PER 25MCG) SC SCH (23:14)
[2019-10-15] VITALS (7 sets, daily range): BP systolic 134–161; BP diastolic 72–98; O2SAT 95
[2019-10-15] MEDS: KETOROLAC 30 MG/ML 1ML VIAL IV PRN ×3 (01:11→16:59)
[2019-10-15] MEDS: MORPHINE 2 MG/ML 1ML VIAL (J2270) IV PRN ×3 (05:04→18:46)
[2019-10-15 06:13] LABS: HEMATOCRIT 42.9 % (42.0-52.0); HEMOGLOBIN 14.3 g/dl (13.5-17.5); MEAN CORPUSCULAR HEMOGLOBIN 31.4 pg (27.0-33.0); MEAN CORPUSCULAR HGB CONC 33.3 g/dl (32.0-36.5); MEAN CORPUSCULAR VOLUME 94.1 fl (80.0-96.0); PLATELET COUNT, AUTOMATED 290 10^3/uL (150-450); RED BLOOD COUNT 4.56 10^6/uL (4.30-6.10)
[2019-10-15] MEDS: OCTREOTIDE ACETATE 100MCG/ML VIAL (J2354 PER 25MCG) SC SCH ×3 (06:32→21:56)
[2019-10-15] MEDS: SODIUM CHLORIDE 0.9% INJ 10 ML SYR IV SCH ×2 (06:33→18:22)
[2019-10-15] MEDS: HumaLOG INSULIN (NovoLOG) PER UNIT SC SCH ×4 (06:34→18:22)
[2019-10-15 06:55] LABS: ALBUMIN 2.1 GM/DL (3.2-5.2); ALT/SGPT 34 U/L (12-78); BILIRUBIN,TOTAL 0.5 MG/DL (0.2-1.0); BLOOD UREA NITROGEN 15 MG/DL (7-18); CALCIUM LEVEL 8.2 MG/DL (8.5-10.1); CARBON DIOXIDE LEVEL 25 MEQ/L (21-32); CHLORIDE LEVEL 111 MEQ/L (98-107); CREATININE FOR GFR 0.69 MG/DL (0.70-1.30); GLOMERULAR FILTRATION RATE > 60.0 (>60); GLUCOSE, FASTING 185 MG/DL (70-100); MAGNESIUM LEVEL 2.3 MG/DL (1.8-2.4); POTASSIUM SERUM 4.1 MEQ/L (3.5-5.1); SODIUM LEVEL 141 MEQ/L (136-145); TOTAL PROTEIN 6.3 GM/DL (6.4-8.2)
--- NOTE | 2019-10-15 08:09 | IPNPDOC ---
Text Note Date of Service The patient was seen on 10/15/19. NOTE No acute events overnight. Pain is improved. Denies nausea or emesis. No comp laints, and the drain is much clearer. VSSAF NAD abd - soft, TTP appropriate, dressings c/d/i, drain is serosanguinous labs - below A) 49y/o male s/p RA repair of perforated duodenal ulcer s/p repair of continued leak from duodenal ulcer P)npo IVF abx diflucan ambulate TPN Carlos Sorto DO VS,Fishbone, I+O VS, Fishbone, I+O Laboratory Tests 10/15/19 05:52 Vital Signs Date Time Temp Pulse Resp B/P (MAP) Pulse Ox O2 Delivery O2 Flow Rate FiO2 10/15/19 05:14 20 96 Room Air 10/15/19 04:30 98.7 69 149/82 (104) 10/14/19 18:10 10 I&O- Last 24 Hours up to 6 AM 10/15/19 06:00 Intake Total 950 ml Output Total 1310 ml Balance -360 ml MORGAN SORTO DO Oct 15, 2019 08:09
[2019-10-15] MEDS: PANTOPRAZOLE 40MG VIAL (C9113 PER 1) IV SCH ×2 (09:40→21:56)
[2019-10-15] MEDS: ENOXAPARIN 40MG/0.4ML SYRINGE (J1650 PER 10MG) SC SCH (09:40)
[2019-10-15] MEDS: NICOTINE 21MG/24HR 1 EA TRANSDERMAL TD SCH (09:41)
[2019-10-15] MEDS: FLUCONAZOLE 200 MG in IV 1 EA IV SCH (13:01)
--- NOTE | 2019-10-15 16:06 | RO ---
DATE OF PROCEDURE: 10/11/2019 PREOPERATIVE DIAGNOSIS: Perforated viscus. POSTOPERATIVE DIAGNOSIS: Perforated duodenal ulcer. PROCEDURE: Robotic repair of perforated duodenal ulcer with abdominal washout and Jarrod patch. SURGEON: Natalio Sorto DO SUPERVISOR [employer] FINISHING: Lucinda Emery NP ANESTHESIA: General. ESTIMATED BLOOD LOSS: 5. COMPLICATIONS: None. INDICATIONS FOR PROCEDURE: The patient is a 49-year-old male with a perforated ulcer identified on CT. Recommendation was emergent repair. Risks and benefits of the procedure not limited but including bleeding, infection, hernia formation, damage to surrounding structures, need further surgery were discussed in detail with the patient. Informed consent was obtained and procedure was planned. DESCRIPTION OF PROCEDURE: The patient was brought back to operating room #7. After sufficient sedation, the abdomen was sterilely prepped and draped. Next, a time-out was done to confirm proper patient and proper procedure. Following that an 8 mm incision made in left lower quadrant. Veress needle was inserted and the abdomen was insufflated to 50 mmHg. Veress needle was then removed and an 8 mm OptiView port was used to gain access to the abdomen. Once the abdomen was entered three more 8 mm ports were placed horizontally across the upper abdomen. Once that was completed the robot was docked to the ports. Next, from the console the omentum from transverse colon was held inferiorly. The gallbladder was grabbed and elevated superiorly to be able to visualize the ulceration. Once it was identified it was leaning right up against the neck of the gallbladder and I was able to dissect in between the duodenum and the neck of the gallbladder sufficiently to increase visualization of the ulcer. Once that was completed four interrupted #3-0 Vicryl sutures were used to reapproximate the ulcer. Once that was completed, another stitch was placed this time with the tails being left long. The omentum was then placed back over top of this ulcer and the tails of the suture were tied down over top of it to hold in place. Once that was completed all the needles were removed. The 19-Albanian Olman drain was placed in the subhepatic space in between the gallbladder and the omental patch coming out the most right lateral port site. The right upper quadrant was irrigated with normal saline. The abdomen was then desufflated. Ports were removed. Skin incisions were closed with #4-0 Vicryl subcuticular sutures. Drain was sutured in place with a #2-0 silk suture. The abdomen was cleaned and dried, 4 x 4's and tape were applied, thus ending procedure.
[2019-10-15] MEDS: ERTAPENEM SODIUM 1 GM in NS MINI-BAG PLUS 50 ML IV SCH (16:58)
[2019-10-15] MEDS ORDERED: AMINO AC/ELECTROLYTE/DEX/CALC 2,000 ML IV SCH (18:00)
[2019-10-15] MEDS ORDERED: FAT EMULSION IV 20% 500 ML IV SCH (18:00)
[2019-10-15] MEDS: SODIUM CHLORIDE 0.9% INJ 10 ML SYR IV PRN ×2 (21:56→22:19)
[2019-10-15] MEDS: ONDANSETRON 4MG/2ML VIAL IV PRN (22:18)
[2019-10-16] MEDS: MORPHINE 2 MG/ML 1ML VIAL (J2270) IV PRN ×4 (00:19→21:45)
[2019-10-16] MEDS: HumaLOG INSULIN (NovoLOG) PER UNIT SC SCH ×4 (00:20→18:29)
[2019-10-16 02:00] VITALS: BP 146/89
[2019-10-16 05:56] LABS: HEMATOCRIT 41.8 % (42.0-52.0); HEMOGLOBIN 14.6 g/dl (13.5-17.5); MEAN CORPUSCULAR HEMOGLOBIN 32.5 pg (27.0-33.0); MEAN CORPUSCULAR HGB CONC 34.9 g/dl (32.0-36.5); MEAN CORPUSCULAR VOLUME 93.1 fl (80.0-96.0); PLATELET COUNT, AUTOMATED 296 10^3/uL (150-450); RED BLOOD COUNT 4.49 10^6/uL (4.30-6.10); WHITE BLOOD COUNT 11.8 10^3/uL (4.0-10.0)
[2019-10-16 06:00] VITALS: BP 145/89
[2019-10-16] MEDS: OCTREOTIDE ACETATE 100MCG/ML VIAL (J2354 PER 25MCG) SC SCH ×3 (06:15→21:44)
[2019-10-16] MEDS: SODIUM CHLORIDE 0.9% INJ 10 ML SYR IV SCH ×2 (06:16→18:30)
[2019-10-16] MEDS: KETOROLAC 30 MG/ML 1ML VIAL IV PRN (06:16)
[2019-10-16 06:28] LABS: ALBUMIN 2.3 GM/DL (3.2-5.2); ALT/SGPT 24 U/L (12-78); BILIRUBIN,TOTAL 0.7 MG/DL (0.2-1.0); BLOOD UREA NITROGEN 18 MG/DL (7-18); CALCIUM LEVEL 8.1 MG/DL (8.5-10.1); CARBON DIOXIDE LEVEL 28 MEQ/L (21-32); CHLORIDE LEVEL 107 MEQ/L (98-107); CREATININE FOR GFR 0.66 MG/DL (0.70-1.30); GLOMERULAR FILTRATION RATE > 60.0 (>60); GLUCOSE, FASTING 132 MG/DL (70-100); POTASSIUM SERUM 3.8 MEQ/L (3.5-5.1); SODIUM LEVEL 140 MEQ/L (136-145); TOTAL PROTEIN 5.5 GM/DL (6.4-8.2)
[2019-10-16 08:05] VITALS: O2SAT 95
[2019-10-16] MEDS: NICOTINE 21MG/24HR 1 EA TRANSDERMAL TD SCH (09:58)
[2019-10-16] MEDS: PANTOPRAZOLE 40MG VIAL (C9113 PER 1) IV SCH ×2 (09:58→21:44)
[2019-10-16] MEDS: ENOXAPARIN 40MG/0.4ML SYRINGE (J1650 PER 10MG) SC SCH (09:58)
--- NOTE | 2019-10-16 10:43 | RO ---
DATE OF PROCEDURE: 10/14/2019 PREOPERATIVE DIAGNOSIS: Continued leak from perforated duodenal ulcer status post primary repair. POSTOPERATIVE DIAGNOSIS: Continued leak from perforated duodenal ulcer status post primary repair. PROCEDURE: Robotic closure and plication of the duodenal ulcer with Jarrod patch repair. SURGEON: Dr. Sorto CARE SPECIALIST: Dr. Turner, who assisted with mobilization of the omentum and retraction. ANESTHESIA: General. ESTIMATED BLOOD LOSS (EBL): 20. COMPLICATIONS: None. INDICATIONS FOR PROCEDURE: The patient is 49-year-old male who had a previous robotic duodenal ulcer repair done 3 days ago. He has had shown signs of continued leak. Recommendation was to proceed with repair. After obtaining consent, procedure was planned. DESCRIPTION OF PROCEDURE: The patient brought back to operating room #7. After having sufficient sedation, the abdomen sterilely prepped and draped. Time-out was done to confirm proper patient and proper procedure. Following that the four previous robotic incision sites were opened. The incision to the far left a Veress needle placed. The Veress needle was then insufflated to 50 mmHg and once the abdomen was insufflated the Veress needle was removed. An 8 mm robotic OptiView port was placed. Once the port was placed, the rest of the three ports were placed under visualization. The abdomen was examined. The omentum and stitches were all intact from the previous repair on Monday morning. However, there is still some leakage identified coming from in-between a couple of the sutures. The omentum was freed up from the previous Jarrod patch. Adhesions to the liver and the gallbladder were gently removed. The area was reexposed. Another 5 mm port was placed in the right upper quadrant for an assist port to help with retraction of the omentum in the transverse colon. About eight separate interrupted #3-0 Vicryl sutures were placed to reapproximate the ulcer. Once that was completed, Tisseel was placed over top of the incision. Some omentum was placed back over top of this ulcer and sutured in place with #3-0 Vicryl sutures. Once that was completed, the 19-Tristanian Olman drain was placed back into the subhepatic space. It was brought out through the 5 mm port site in the right side of the abdomen. The abdomen was then desufflated. Ports were removed. Skin incisions were closed #4-0 Vicryl subcuticular sutures. The drain was sutured in place with #2-0 silk. The abdomen was cleaned and dried. 4 x 4 and tape were applied, thus ending procedure.
--- NOTE | 2019-10-16 13:04 | IPNPDOC ---
Text Note Date of Service The patient was seen on 10/16/19. NOTE No acute events overnight. Pain is improved. Denies nausea or emesis. No comp laints, and the drain is still clear. VSSAF NAD abd - soft, TTP appropriate, dressings c/d/i, drain is serosanguinous labs - below A) 49y/o male s/p RA repair of perforated duodenal ulcer s/p repair of continued leak from duodenal ulcer P)npo IVF abx diflucan ambulate TPN norco will continue with this plan until UGI on Monday am Carlos Sorto DO VS,Fishbone, I+O VS, Fishbone, I+O Laboratory Tests 10/16/19 05:34 Vital Signs Date Time Temp Pulse Resp B/P (MAP) Pulse Ox O2 Delivery O2 Flow Rate FiO2 10/16/19 08:05 95 Room Air 10/16/19 06:00 97.1 73 18 145/89 (107) 10/14/19 18:10 10 I&O- Last 24 Hours up to 6 AM 10/16/19 06:00 Intake Total 1640 ml Output Total 2750 ml Balance -1110 ml MORGAN SORTO DO Oct 16, 2019 13:04
[2019-10-16] MEDS: FLUCONAZOLE 200 MG in IV 1 EA IV SCH (13:32)
[2019-10-16] MEDS: NORCO, ANEXSIA 5/325MG TABLET (HYDROcodone/ACETAMINOPHEN) PO PRN ×2 (13:39→20:08)
[2019-10-16 14:00] VITALS: BP 158/88
[2019-10-16] MEDS: ERTAPENEM SODIUM 1 GM in NS MINI-BAG PLUS 50 ML IV SCH (17:00)
[2019-10-16] MEDS ORDERED: MULTIVITAMIN -ADULT INJECTION 10 ML, CR/CU/SE/MN/ZN INJ 1 ML in AMINO AC/ELECTROLYTE/DE... IV SCH (18:00)
[2019-10-16] MEDS ORDERED: FAT EMULSION IV 20% 500 ML IV SCH (18:00)
[2019-10-16 21:00] VITALS: O2SAT 95
[2019-10-16] MEDS: ONDANSETRON 4MG/2ML VIAL IV PRN (21:47)
[2019-10-16] MEDS: SODIUM CHLORIDE 0.9% INJ 10 ML SYR IV PRN (21:48)
[2019-10-16 22:00] VITALS: BP 146/87
[2019-10-17] MEDS: HumaLOG INSULIN (NovoLOG) PER UNIT SC SCH ×4 (00:13→18:14)
[2019-10-17] MEDS: MORPHINE 2 MG/ML 1ML VIAL (J2270) IV PRN ×5 (02:18→20:04)
[2019-10-17] MEDS: SODIUM CHLORIDE 0.9% INJ 10 ML SYR IV PRN ×2 (02:19→21:43)
[2019-10-17 05:56] LABS: HEMATOCRIT 44.6 % (42.0-52.0); HEMOGLOBIN 15.4 g/dl (13.5-17.5); MEAN CORPUSCULAR HEMOGLOBIN 32.2 pg (27.0-33.0); MEAN CORPUSCULAR HGB CONC 34.5 g/dl (32.0-36.5); MEAN CORPUSCULAR VOLUME 93.3 fl (80.0-96.0); PLATELET COUNT, AUTOMATED 323 10^3/uL (150-450); RED BLOOD COUNT 4.78 10^6/uL (4.30-6.10); WHITE BLOOD COUNT 12.6 10^3/uL (4.0-10.0)
[2019-10-17 06:00] VITALS: BP 154/86
[2019-10-17 06:26] LABS: ALBUMIN 2.3 GM/DL (3.2-5.2); ALT/SGPT 40 U/L (12-78); BILIRUBIN,TOTAL 0.7 MG/DL (0.2-1.0); BLOOD UREA NITROGEN 14 MG/DL (7-18); CALCIUM LEVEL 8.2 MG/DL (8.5-10.1); CARBON DIOXIDE LEVEL 27 MEQ/L (21-32); CHLORIDE LEVEL 107 MEQ/L (98-107); CREATININE FOR GFR 0.63 MG/DL (0.70-1.30); GLOMERULAR FILTRATION RATE > 60.0 (>60); GLUCOSE, FASTING 124 MG/DL (70-100); MAGNESIUM LEVEL 2.1 MG/DL (1.8-2.4); POTASSIUM SERUM 3.9 MEQ/L (3.5-5.1); SODIUM LEVEL 141 MEQ/L (136-145); TOTAL PROTEIN 5.9 GM/DL (6.4-8.2)
[2019-10-17] MEDS: OCTREOTIDE ACETATE 100MCG/ML VIAL (J2354 PER 25MCG) SC SCH ×3 (06:36→21:38)
[2019-10-17] MEDS: SODIUM CHLORIDE 0.9% INJ 10 ML SYR IV SCH ×2 (06:37→18:14)
--- NOTE | 2019-10-17 08:26 | IPNPDOC ---
Text Note Date of Service The patient was seen on 10/17/19. NOTE No acute events overnight. Pain is minimal. Denies nausea, emesis, fevers, co ugh, or shortness of breath. No complaints, and the drain is still clear. VSSAF NAD abd - soft, TTP appropriate, dressings c/d/i, drain is serosanguinous labs - below A) 49y/o male s/p RA repair of perforated duodenal ulcer s/p repair of continued leak from duodenal ulcer P)npo IVF abx diflucan ambulate TPN norco will continue with this plan until UGI tomorrow am Carlos Sorto DO VS,Fishbone, I+O VS, Fishbone, I+O Laboratory Tests 10/17/19 05:40 Vital Signs Date Time Temp Pulse Resp B/P (MAP) Pulse Ox O2 Delivery O2 Flow Rate FiO2 10/17/19 06:50 17 10/17/19 06:00 98.0 66 154/86 (108) 96 Room Air 10/14/19 18:10 10 I&O- Last 24 Hours up to 6 AM 10/17/19 06:00 Intake Total 1480 ml Output Total 2510 ml Balance -1030 ml MORGAN SORTO DO Oct 17, 2019 08:26
[2019-10-17] MEDS: ENOXAPARIN 40MG/0.4ML SYRINGE (J1650 PER 10MG) SC SCH (08:47)
[2019-10-17] MEDS: PANTOPRAZOLE 40MG VIAL (C9113 PER 1) IV SCH ×2 (08:47→21:38)
[2019-10-17] MEDS: NICOTINE 21MG/24HR 1 EA TRANSDERMAL TD SCH (08:47)
[2019-10-17] MEDS: NORCO, ANEXSIA 5/325MG TABLET (HYDROcodone/ACETAMINOPHEN) PO PRN ×2 (12:50→21:41)
[2019-10-17] MEDS: FLUCONAZOLE 200 MG in IV 1 EA IV SCH (12:50)
[2019-10-17 14:00] VITALS: BP 168/94
[2019-10-17] MEDS: ERTAPENEM SODIUM 1 GM in NS MINI-BAG PLUS 50 ML IV SCH (15:22)
[2019-10-17] MEDS ORDERED: AMINO AC/ELECTROLYTE/DEX/CALC 2,000 ML IV SCH ×2 (18:00)
[2019-10-17] MEDS ORDERED: FAT EMULSION IV 20% 500 ML IV SCH (18:00)
[2019-10-17 22:00] VITALS: BP 157/87
[2019-10-18] MEDS: HumaLOG INSULIN (NovoLOG) PER UNIT SC SCH ×5 (00:11→23:59)
[2019-10-18] MEDS: MORPHINE 2 MG/ML 1ML VIAL (J2270) IV PRN ×5 (00:12→23:58)
[2019-10-18] MEDS: OCTREOTIDE ACETATE 100MCG/ML VIAL (J2354 PER 25MCG) SC SCH ×3 (05:40→21:43)
[2019-10-18] MEDS: SODIUM CHLORIDE 0.9% INJ 10 ML SYR IV SCH ×2 (05:41→17:39)
[2019-10-18 06:00] VITALS: BP 151/84
[2019-10-18 06:32] LABS: HEMATOCRIT 44.5 % (42.0-52.0); HEMOGLOBIN 14.9 g/dl (13.5-17.5); MEAN CORPUSCULAR HEMOGLOBIN 31.4 pg (27.0-33.0); MEAN CORPUSCULAR HGB CONC 33.5 g/dl (32.0-36.5); MEAN CORPUSCULAR VOLUME 93.9 fl (80.0-96.0); PLATELET COUNT, AUTOMATED 354 10^3/uL (150-450); RED BLOOD COUNT 4.74 10^6/uL (4.30-6.10); WHITE BLOOD COUNT 13.5 10^3/uL (4.0-10.0)
[2019-10-18 06:59] LABS: ALBUMIN 2.3 GM/DL (3.2-5.2); ALT/SGPT 90 U/L (12-78); BILIRUBIN,TOTAL 1.1 MG/DL (0.2-1.0); BLOOD UREA NITROGEN 14 MG/DL (7-18); CALCIUM LEVEL 8.4 MG/DL (8.5-10.1); CARBON DIOXIDE LEVEL 28 MEQ/L (21-32); CHLORIDE LEVEL 106 MEQ/L (98-107); CREATININE FOR GFR 0.64 MG/DL (0.70-1.30); GLOMERULAR FILTRATION RATE > 60.0 (>60); GLUCOSE, FASTING 118 MG/DL (70-100); MAGNESIUM LEVEL 2.2 MG/DL (1.8-2.4); POTASSIUM SERUM 3.6 MEQ/L (3.5-5.1); SODIUM LEVEL 138 MEQ/L (136-145); TOTAL PROTEIN 6.4 GM/DL (6.4-8.2)
[2019-10-18] MEDS ORDERED: NS 1,000 ML IV ONE (07:30)
--- NOTE | 2019-10-18 07:42 | IPNPDOC ---
Text Note Date of Service The patient was seen on 10/18/19. NOTE No acute events overnight. Pain is minimal. Denies nausea, emesis, fevers, co ugh, or shortness of breath. No complaints, and the drain is still clear. VSSAF NAD abd - soft, TTP appropriate, dressings c/d/i, drain is serosanguinous labs - below A) 49y/o male s/p RA repair of perforated duodenal ulcer s/p repair of continued leak from duodenal ulcer P)npo IVF abx diflucan ambulate TPN norco UGI this am, if no leak, then I will d/c the NGT and start clq diet Carlos Sorto DO VS,Fishbone, I+O VS, Fishbone, I+O Laboratory Tests 10/18/19 05:59 Vital Signs Date Time Temp Pulse Resp B/P (MAP) Pulse Ox O2 Delivery O2 Flow Rate FiO2 10/18/19 06:00 98.5 61 18 151/84 (106) 95 Room Air 10/14/19 18:10 10 I&O- Last 24 Hours up to 6 AM 10/18/19 06:00 Intake Total 200 ml Output Total 2825 ml Balance -2625 ml MORGAN SORTO DO Oct 18, 2019 07:42
[2019-10-18] MEDS: PANTOPRAZOLE 40MG VIAL (C9113 PER 1) IV SCH ×2 (08:46→21:42)
[2019-10-18] MEDS: ENOXAPARIN 40MG/0.4ML SYRINGE (J1650 PER 10MG) SC SCH (08:46)
[2019-10-18] MEDS: NICOTINE 21MG/24HR 1 EA TRANSDERMAL TD SCH (08:47)
[2019-10-18] MEDS: NORCO, ANEXSIA 5/325MG TABLET (HYDROcodone/ACETAMINOPHEN) PO PRN ×2 (08:50→16:01)
[2019-10-18] MEDS ORDERED: GASTROGRAFIN SOLUTION 30ML (Q9963) As Ordered ONE (10:36)
[2019-10-18] MEDS: FLUCONAZOLE 200 MG in IV 1 EA IV SCH (13:10)
[2019-10-18] MEDS: AMINO AC/ELECTROLYTE/DEX/CALC 1,000 ML IV SCH ×2 (13:10→17:52)
[2019-10-18 14:00] VITALS: BP 135/79
[2019-10-18] MEDS: ERTAPENEM SODIUM 1 GM in NS MINI-BAG PLUS 50 ML IV SCH (16:01)
--- NOTE | 2019-10-18 17:49 | REP ---
GASTROGRAFIN UPPER GI The procedure was performed under the direct supervision of Dr. Kendall. The images were reviewed with Dr. Kendall. The manager medical writing film shows no organomegaly or pathological masses. The intestinal gas pattern is nonspecific. There is a surgical drain in the epigastric region. There are residual contrast in the rectum from the previous upper GI study. The 50 50 solution of Gastrografin and water was instilled through the NG tube. The stomach is grossly normal. The rugal folds are smooth and regular. There is no evidence of gastritis neoplasm or ulcer disease. In the duodenum there are thickened folds which is likely due to postsurgical edema. There is no evidence of extravasation. Impression: There are thickened folds in the duodenum which likely represents postsurgical edema. There is no evidence of extravasation. 1 minute of fluoroscopy time was utilized for this procedure. Electronically Signed by ABENA Zapata 10/18/2019 02:02 P Electronically Signed by Antonio Kendall MD 10/18/2019 05:39 P
[2019-10-18] MEDS ORDERED: FAT EMULSION IV 20% 500 ML IV SCH (18:00)
[2019-10-18 22:00] VITALS: BP 140/75
[2019-10-18] MEDS ORDERED: AMINO AC/ELECTROLYTE/DEX/CALC 2,000 ML IV ONE (22:00)
[2019-10-19] MEDS: SODIUM CHLORIDE 0.9% INJ 10 ML SYR IV PRN ×2 (00:03→09:49)
[2019-10-19 06:00] VITALS: BP 143/74
[2019-10-19] MEDS: HumaLOG INSULIN (NovoLOG) PER UNIT SC SCH (06:00)
[2019-10-19] MEDS: OCTREOTIDE ACETATE 100MCG/ML VIAL (J2354 PER 25MCG) SC SCH (06:17)
[2019-10-19] MEDS: SODIUM CHLORIDE 0.9% INJ 10 ML SYR IV SCH ×2 (06:17→17:27)
[2019-10-19] MEDS: NORCO, ANEXSIA 5/325MG TABLET (HYDROcodone/ACETAMINOPHEN) PO PRN ×3 (06:23→18:59)
[2019-10-19 07:05] LABS: HEMATOCRIT 43.5 % (42.0-52.0); HEMOGLOBIN 14.9 g/dl (13.5-17.5); MEAN CORPUSCULAR HGB CONC 34.3 g/dl (32.0-36.5); MEAN CORPUSCULAR VOLUME 93.5 fl (80.0-96.0); PLATELET COUNT, AUTOMATED 354 10^3/uL (150-450); RED BLOOD COUNT 4.65 10^6/uL (4.30-6.10); WHITE BLOOD COUNT 13.7 10^3/uL (4.0-10.0)
[2019-10-19 07:26] LABS: BLOOD UREA NITROGEN 13 MG/DL (7-18); CALCIUM LEVEL 8.1 MG/DL (8.5-10.1); CARBON DIOXIDE LEVEL 27 MEQ/L (21-32); CHLORIDE LEVEL 108 MEQ/L (98-107); CREATININE FOR GFR 0.71 MG/DL (0.70-1.30); GLOMERULAR FILTRATION RATE > 60.0 (>60); GLUCOSE, FASTING 116 MG/DL (70-100); POTASSIUM SERUM 4.6 MEQ/L (3.5-5.1); SODIUM LEVEL 141 MEQ/L (136-145)
[2019-10-19] MEDS: PANTOPRAZOLE 40MG VIAL (C9113 PER 1) IV SCH (09:48)
[2019-10-19] MEDS: NICOTINE 21MG/24HR 1 EA TRANSDERMAL TD SCH (09:49)
[2019-10-19] MEDS: ENOXAPARIN 40MG/0.4ML SYRINGE (J1650 PER 10MG) SC SCH (09:50)
[2019-10-19] MEDS: MORPHINE 2 MG/ML 1ML VIAL (J2270) IV PRN (09:50)
[2019-10-19 14:00] VITALS: BP 131/75
[2019-10-19] MEDS: ERTAPENEM SODIUM 1 GM in NS MINI-BAG PLUS 50 ML IV SCH (16:37)
[2019-10-19] MEDS: PANTOPRAZOLE 40MG TAB (PROTONIX) PO SCH (20:39)
[2019-10-19 22:00] VITALS: BP 138/78; O2SAT 96
[2019-10-20] MEDS: NORCO, ANEXSIA 5/325MG TABLET (HYDROcodone/ACETAMINOPHEN) PO PRN ×2 (01:20→08:01)
[2019-10-20] MEDS: SODIUM CHLORIDE 0.9% INJ 10 ML SYR IV SCH (05:29)
[2019-10-20 06:00] VITALS: BP 121/79
[2019-10-20 07:09] LABS: HEMATOCRIT 45.6 % (42.0-52.0); HEMOGLOBIN 15.4 g/dl (13.5-17.5); MEAN CORPUSCULAR HEMOGLOBIN 31.5 pg (27.0-33.0); MEAN CORPUSCULAR HGB CONC 33.8 g/dl (32.0-36.5); MEAN CORPUSCULAR VOLUME 93.3 fl (80.0-96.0); PLATELET COUNT, AUTOMATED 391 10^3/uL (150-450); RED BLOOD COUNT 4.89 10^6/uL (4.30-6.10); WHITE BLOOD COUNT 11.6 10^3/uL (4.0-10.0)
[2019-10-20 07:27] LABS: BLOOD UREA NITROGEN 12 MG/DL (7-18); CALCIUM LEVEL 8.2 MG/DL (8.5-10.1); CARBON DIOXIDE LEVEL 27 MEQ/L (21-32); CHLORIDE LEVEL 108 MEQ/L (98-107); CREATININE FOR GFR 0.73 MG/DL (0.70-1.30); GLOMERULAR FILTRATION RATE > 60.0 (>60); GLUCOSE, FASTING 96 MG/DL (70-100); POTASSIUM SERUM 4.8 MEQ/L (3.5-5.1); SODIUM LEVEL 142 MEQ/L (136-145)
[2019-10-20 07:42] LABS: EOSINOPHILS 3 % (0-3); LYMPHOCYTES 12 % (16-44); METAMYELOCYTES 1 % (0-0); MONOCYTES 10 % (0-5); NEUTROPHILS 73 % (28-66); PLATELET ESTIMATE NORMAL (NORMAL)
[2019-10-20] MEDS: PANTOPRAZOLE 40MG TAB (PROTONIX) PO SCH (08:01)
[2019-10-20] MEDS: ENOXAPARIN 40MG/0.4ML SYRINGE (J1650 PER 10MG) SC SCH (08:01)
[2019-10-20] MEDS: NICOTINE 21MG/24HR 1 EA TRANSDERMAL TD SCH (08:01)
--- NOTE | 2019-10-20 08:32 | IPN ---
DATE: 10/19/2019 HISTORY: The patient has undergone surgical repair of a perforated duodenal ulcer on the and then required repeat repair on the . He had a nasogastric (NG) tube in place until yesterday when an upper gastrointestinal (GI) showed no evidence of leak and the tube was removed. He was allowed to take some clear liquids. He has a single drain in place still in the abdomen. Vital signs: Show that the patient has been afebrile over the past 24 hours. His pulse is in the 60s generally with a blood pressure that is generally within normal limits, perhaps trending toward the high side of normal a bit. His intake and output over the past 24 hours records 670 in with 2900 out, although his total parenteral nutrition has not been recorded in the intake and output for 4 days. He has, however, been on total parenteral nutrition. The intake and output record reports 100 mL out of his drain this morning and 100 mL out yesterday. PHYSICAL EXAM: The patient is alert and oriented. He is sitting up in a chair when I went to see him. He denies any nausea or vomiting. Sclerae are anicteric. Heart exam shows a regular rate and rhythm. The lungs are clear. The abdomen is protuberant and somewhat obese. He has a Olman drain exiting the right upper quadrant, which has a small amount of clear serous fluid. The patient has several light dressings over the other trocar sites and these are all clean and dry. He has bowel sounds present and active. The abdomen is without any undue tenderness. Laboratory studies show a white count of 14,000, hemoglobin of 15, hematocrit of 44, and a platelet count of 354,000. Chemistry profile shows sodium of 141, potassium 4.6, chloride 108, CO2 of 27, BUN of 13, creatinine 0.7 and a glucose of 116. I reviewed his upper GI series images and would agree that there is flow of contrast from the stomach through the duodenum and distally into the small bowel without any evidence of extravasation. IMPRESSION: The patient is doing well now 5 days postop from repeat repair of a perforated duodenal ulcer. He has had some clear liquids since yesterday when his nasogastric tube was removed. He remains on total parenteral nutrition at this point. He has one drain in place. PLAN: I will stop his total parenteral nutrition (TPN). I will advance him to a soft diet, and I counseled him that he can take any soft foods but should avoid any raw vegetables for right now. He should chew well and eat slowly to ensure that food is passing adequately. I will have his drain removed as this is serving no purpose at this point draining only a small amount of serous fluid. I will leave his antibiotic the Invanz going at this point while he remains in the hospital. His white count is 13.7 today which is minimally up from yesterday and probably not of any significance. If he tolerates his soft diet and has no problems identified by tomorrow then I will discharge him tomorrow. RAVIN
[2019-10-20] MEDS ORDERED: NICO21PAT TD (10:43)
[2019-10-20] MEDS ORDERED: PANT40TA3 PO (10:43)
[2019-10-20] MEDS ORDERED: HYDR-3715 PO (10:43)
--- NOTE | 2019-10-21 07:00 | IPN ---
DATE: 10/20/2019 HISTORY: Patient is now 6 days postoperative from repeat oversewing of a perforated duodenal ulcer. His nasogastric (NG) tube was removed on 10/18/2019, and he had been started on clear liquids. Yesterday, he was advanced to a regular diet and his drain was removed. His total parenteral nutrition (TPN) was also stopped. Today, he reports that he is feeling good. He has little pain. He is tolerating a regular diet. VITAL SIGNS: Today, show that he has been afebrile since yesterday. His pulse is in the 60s and 70s, and his blood pressure is good. INTAKE AND OUTPUT: Show that yesterday he had 1675 in with 2700 out. PHYSICAL EXAMINATION: Patient is awake and alert and appears comfortable. Heart exam shows a regular rhythm. The abdomen is mildly protuberant but soft with active bowel sounds. He has a light dressing over his drain site in the right upper quadrant, and his other trocar sites are all clean and healing well. There is no significant tenderness on palpation of the abdomen. LABORATORY STUDIES: Show a white count of 12, hemoglobin 15, hematocrit of 46, and a platelet count of 391,000. Differential count shows 73% neutrophils, 12% lymphocytes, and 10% monocytes. Chemistry profile shows normal electrolytes with the exception of a minimal elevation of the chloride to 108. BUN is 12 with a creatinine of 0.7 and the glucose is 96. IMPRESSION: Patient is doing very well now 6 days postoperative from his most recent surgery. He has shown no fever or chills, and his white count is the lowest it has been. His differential count is not concerning. PLAN: Patient will be discharged home today. I will not continue him on antibiotics after discharge. He was advised to take a regular diet as tolerated but to still go a little slow and cautiously for a few days to ensure that his stomach is emptying well. He can shower as desired. He was advised against any strenuous physical activity for the next few weeks. He should followup with Dr. Sorto in the office in approximately 2-3 weeks. We discussed continuing the nicotine patches, and he would like a prescription to try to continue to stop smoking. He will be given a prescription for Protonix 40 mg twice daily. He will be given a prescription for nicotine patches, 21 mcg patches. He will also receive a prescription for a few [place] tablets for discomfort. He can take Tylenol as needed for milder pain, and he was also counseled that he should avoid nonsteroidal anti-inflammatory medications. RAVIN
== END 2019-10-20 11:48 | disposition home or self-care (01) | DRG 220 ==
LOC: M ED 06:44 → M SDC 11:21 → M ED INP 11:22 → M SDC 11:28 → M MSPAV 13:05
PROVIDERS: ADMIT Surgery; ATTEND Surgery
PROC: 8E0W4CZ Robotic Assisted Procedure of Trunk Region, Percutaneous Endoscopic Approach (ICD-10-PCS; 2019-10-11)
PROC: 0DQ98ZZ Repair Duodenum, Via Natural or Artificial Opening Endoscopic (ICD-10-PCS; principal; 2019-10-11 09:55)
PROC: 02HV33Z Insertion of Infusion Device into Superior Vena Cava, Percutaneous Approach (ICD-10-PCS; 2019-10-14)
PROC: 0DQ98ZZ Repair Duodenum, Via Natural or Artificial Opening Endoscopic (ICD-10-PCS; 2019-10-14)
PROC: 8E0W4CZ Robotic Assisted Procedure of Trunk Region, Percutaneous Endoscopic Approach (ICD-10-PCS; 2019-10-14)
DX: K26.1 Acute duodenal ulcer with perforation (principal); F17.200 Nicotine dependence, unspecified, uncomplicated

== ENCOUNTER 2019-12-18 07:55 | Day surgery (SDC) | payer OTHER ==
[~2019-12-18] VITALS: Ht 172.7 cm; Wt 108.9 kg
[~2019-12-18 07:55] MED LIST changes: +ALBU8.5H INH; +HYDR-3715 PO; +IBUP-1422 PO; +LIDOCAINE 2% 100MG/5ML SDV (FOR ANES.) As Ordered ONE; +NICO21PAT TD; +PANT40TA29 PO; +propofoL 200 MG/20 ML VIAL As Ordered ONE
[2019-12-18] MEDS ORDERED: NS 1,000 ML IV SCH (09:00)
[2019-12-18] MEDS ORDERED: propofoL 200 MG/20 ML VIAL As Ordered ONE (09:25)
[2019-12-18 10:10] VITALS: BP 143/80
== END 2019-12-18 10:35 | disposition home or self-care (01) ==
LOC: M OPP 07:55
PROVIDERS: ATTEND Surgery
DX: Z12.11 Encounter for screening for malignant neoplasm of colon (principal); K62.1 Rectal polyp; K63.5 Polyp of colon; K64.0 First degree hemorrhoids; K29.80 Duodenitis without bleeding; K26.4 Chronic or unspecified duodenal ulcer with hemorrhage; F17.210 Nicotine dependence, cigarettes, uncomplicated; Z79.899 Other long term (current) drug therapy; Z88.0 Allergy status to penicillin

== ENCOUNTER 2020-11-19 13:37 | Emergency (ER) | payer OTHER ==
[~2020-11-19] VITALS: Ht 172.7 cm; Wt 115.4 kg
[~2020-11-19 13:37] MED LIST changes: -LIDOCAINE 2% 100MG/5ML SDV (FOR ANES.) As Ordered ONE; -propofoL 200 MG/20 ML VIAL As Ordered ONE
[2020-11-19] MEDS ORDERED: IBUPROFEN 600MG TAB PO ONE (14:35)
[2020-11-19] MEDS ORDERED: ACETAMINOPHEN TAB 650MG DOSE (2X325MG) PO ONE (14:35)
--- NOTE | 2020-11-19 15:26 | REP ---
INDICATION: right testicular pain. COMPARISON: None. TECHNIQUE: Real-time sonographic evaluation of scrotum and contents performed. FINDINGS: Right testicle measures 4.8 x 2.5 x 3.5 cm and left testicle 4.9 x 2.1 x 2.5 cm. Focal heterogeneous abnormal echotexture is seen in the upper pole of the right testicle measuring 1.5 x 1.3 x 1.6 cm. There is an ill-defined oval area of abnormal echotexture in the lower right testicle. With Doppler evaluation no significant blood flow is seen in these regions of abnormal echotexture. Left testicle demonstrates no parenchymal abnormality. Complex cystic structure is seen in the tail of the left epididymis 9 x 8 x 11 mm. There is a cyst in the head of the left epididymis 7 x 5 x 5 mm. IMPRESSION: Two areas are visualized in the right testicle demonstrating heterogeneous echotexture, 1 in the upper pole and 1 the lower pole. Both areas demonstrate relatively decreased/absent internal blood flow compared to the remaining testicular parenchyma. Differential diagnosis would include tumor or segmental infarction. <Electronically signed by Natalio Aragon > 11/19/20 [id number]
[2020-11-19 16:10] LABS: BASO # 0.1 10^3/uL (0.0-0.2); BASO % 0.4 % (0.0-1.0); EOS # 0.2 10^3/uL (0.0-0.5); EOS % 1.3 % (0.0-3.0); HEMATOCRIT 48.1 % (42.0-52.0); HEMOGLOBIN 16.4 g/dl (13.5-17.5); LYMPH # 2.7 10^3/uL (1.5-5.0); LYMPH % 16.4 % (24.0-44.0); MEAN CORPUSCULAR HEMOGLOBIN 31.7 pg (27.0-33.0); MEAN CORPUSCULAR HGB CONC 34.1 g/dl (32.0-36.5); MONO # 0.9 10^3/uL (0.0-0.8); MONO % 5.6 % (2.0-8.0); NEUTROPHILS # 12.2 10^3/uL (1.5-8.5); NEUTROPHILS % 75.8 % (36.0-66.0); PLATELET COUNT, AUTOMATED 309 10^3/uL (150-450); RED BLOOD COUNT 5.17 10^6/uL (4.30-6.10); WHITE BLOOD COUNT 16.1 10^3/uL (4.0-10.0)
[2020-11-19 16:40] LABS: ALBUMIN 3.6 GM/DL (3.2-5.2); ALT/SGPT 36 U/L (12-78); BILIRUBIN,DIRECT 0.1 MG/DL (0.0-0.2); BILIRUBIN,TOTAL 0.8 MG/DL (0.2-1.0); BLOOD UREA NITROGEN 11 MG/DL (7-18); CALCIUM LEVEL 8.9 MG/DL (8.5-10.1); CARBON DIOXIDE LEVEL 28 MEQ/L (21-32); CHLORIDE LEVEL 106 MEQ/L (98-107); CREATININE FOR GFR 0.89 MG/DL (0.70-1.30); GLOMERULAR FILTRATION RATE > 60.0 (>60); GLUCOSE, FASTING 118 MG/DL (70-100); LDH LACTATE DEHYDROGENASE 151 U/L (87-241); SODIUM LEVEL 142 MEQ/L (136-145); TOTAL PROTEIN 6.6 GM/DL (6.4-8.2)
[2020-11-19 17:08] LABS: GC DNA AMPLIFICATION NEGATIVE (NEGATIVE)
[2020-11-19] MEDS ORDERED: CIPR-249 PO ×2 (18:14→18:17)
[2020-11-19] MEDS ORDERED: CIPROFLOXACIN 500MG TABLET PO ONE (18:15)
[2020-11-19 18:38] VITALS: BP 142/82
--- NOTE | 2020-11-19 19:09 | SMCUROLCON ---
Urology Consultation General Date of Consultation 11/19/20 Reason For Consultation This patient is seen for right testicular pain. History of Present Illness The patient is a 50-year-old with right testis pains for several days. Seen in ER and scrotal sono had areas of heterogenous vascularity but no mass PE swollen right testis with tenderness , left benign WBC 16k A/P right orchitis recommend 10 day PO abx levaquin or bactrim DS and follow up in urology clinic given age tumor markers sent AFP and HCG and LDH Allergies Allergies: Coded Allergies: Penicillins (Verified Allergy, Unknown, 10/11/19) Vital Signs/I&O Vital Signs Date Time Temp Pulse Resp B/P (MAP) Pulse Ox O2 Delivery O2 Flow Rate FiO2 11/19/20 14:25 11/19/20 13:37 99.4 96 20 97 Room Air Laboratory Data 24H Labs Laboratory Tests 2 11/19/20 15:18: Urine Color YELLOW, Urine Appearance CLEAR, Urine pH 7.0, Urine Specific [place] 1.006, Urine Protein NEGATIVE, Urine Glucose (UA) NEGATIVE, Urine Ketones NEGATIVE, Urine Blood 1+H, Urine Nitrite NEGATIVE, Urine Bilirubin NEGATIVE, Urine Urobilinogen 0.2, Urine Leukocyte Esterase NEGATIVE, Urine WBC (Auto) 0, Urine RBC (Auto) 2, Urine Hyaline Casts (Auto) 0, Urine Bacteria (Auto) NEGATIVE, Urine Squamous Epithelial Cells 0, Urine Sperm (Auto) , Chlamydia trachomatis DNA (SATINDER) NEGATIVE, Neisseria gonorrhoeae DNA (SATINDER) NEGATIVE, Trichomonas vaginalis (PCR) NOT DETECTED 11/19/20 15:52: Immature Granulocyte % (Auto) 0.5, Neutrophils (%) (Auto) 75.8H, Lymphocytes (%) (Auto) 16.4L, Monocytes (%) (Auto) 5.6, Eosinophils (%) (Auto) 1.3, Basophils (%) (Auto) 0.4, Neutrophils # (Auto) 12.2H, Lymphocytes # (Auto) 2.7, Monocytes # (Auto) 0.9H, Eosinophils # (Auto) 0.2, Basophils # (Auto) 0.1, Nucleated Red Blood Cells % (auto) 0.0, Anion Gap 8, Glomerular Filtration Rate > 60.0, Calcium Level 8.9, Total Bilirubin 0.8, Direct Bilirubin 0.1, Aspartate Amino Transf (AST/SGOT) 11, Alanine Aminotransferase (ALT/SGPT) 36, Alkaline Phosphatase 103, Lactate Dehydrogenase 151, Total Protein 6.6, Albumin 3.6, Albumin/Globulin Ratio 1.2, Tumor Marker Alpha Fetoprotein 3.9 CBC/BMP Laboratory Tests 11/19/20 15:52 Assessment 50 yo male right orchits Plan levaquin or Bactrim x 10 days and f/u in clinic RACHEAL CAMACHO M.D. Nov 19, 2020 18:26
--- NOTE | 2020-11-22 14:59 | ED PDOC ---
Post-Departure Follow-Up radiology report faxed to Melissa Walls MD Nov 22, 2020 14:59
== END 2020-11-19 18:44 | disposition home or self-care (01) ==
LOC: M ED 13:37
DX: N50.1 Vascular disorders of male genital organs (principal); N50.811 Right testicular pain; D72.829 Elevated white blood cell count, unspecified; F17.200 Nicotine dependence, unspecified, uncomplicated; Z88.0 Allergy status to penicillin

== ENCOUNTER → 2020-12-01 | Outpatient (REF) | payer OTHER ==
[~2020-12-01] MED LIST changes: +CIPR-249 PO
[2020-12-01 19:01] LABS: APPEARANCE, URINE CLEAR (CLEAR); BACTERIA, URINE AUTO NEGATIVE (NEGATIVE); BILIRUBIN, URINE AUTO NEGATIVE (NEGATIVE); BLOOD, URINE BLOOD NEGATIVE (NEGATIVE); COLOR, URINE STRAW (YELLOW); GLUCOSE, URINE (UA) AUTO NEGATIVE (NEGATIVE); KETONE, URINE AUTO NEGATIVE (NEGATIVE); LEUKOCYTE ESTERASE, URINE AUTO NEGATIVE (NEGATIVE); NITRITE, URINE AUTO NEGATIVE (NEGATIVE); PROTEIN, URINE AUTO NEGATIVE (NEGATIVE); RBC, URINE AUTO 0 /HPF (0-3); SPECIFIC GRAVITY URINE AUTO 1.004 (1.002-1.035); SQUAMOUS EPITHELIAL CELL UR AU 0 /HPF (0-6); UROBILINOGEN, URINE AUTO 0.2 mg/dL (0.0-2.0); WBC, URINE AUTO 0 /HPF (0-3)
== END ==
LOC: M SMT 17:13
PROVIDERS: ATTEND Urology
DX: R31.29 Other microscopic hematuria (principal)

== ENCOUNTER → 2020-12-15 | Outpatient (CLI) | payer OTHER ==
--- NOTE | 2020-12-15 10:45 | REP ---
INDICATION: TESTICULAR PAIN COMPARISON: 11/19/2020 TECHNIQUE: Aragon scale and color Doppler evaluation using linear and curved array transducer with color Doppler evaluation. FINDINGS: The right testicle measures 4.6 x 2.4 x 3.0 cm and again demonstrates 2 heterogeneous slightly hypoechoic areas relatively unchanged from prior examination. Upper pole area measures approximately 8.4 x 6.5 x 8.2 mm while the lower pole area measures 13 x 13 x 15 mm. These areas again appear relatively avascular with the remainder of the left testicle appearing normal in echotexture and vascularity. A small associated hydrocele is identified. The left testicle measures 4.6 x 2.5 x 3.2 cm and appears relatively normal in echotexture and vascularity. A small left hydrocele is identified along with stable 6 mm epididymal cyst. IMPRESSION: 1. Vague relatively stable avascular heterogeneous hypoechoic areas within the right testicle again noted. Differential diagnosis includes geographic, focal areas of infarction, but underlying pathology including tumor cannot definitively be excluded. <Electronically signed by Jevon Del Real > 12/15/20 [id number]
== END ==
LOC: M RAD 09:49
PROVIDERS: ATTEND Urology
DX: N50.819 Testicular pain, unspecified (principal)

== ENCOUNTER 2023-04-05 06:00 | Emergency (ER) | payer OTHER ==
[~2023-04-05] VITALS: Ht 172.7 cm; Wt 118.2 kg
[~2023-04-05 06:00] MED LIST changes: +NYST-38 SS; -NYST50SS SS
[2023-04-05] MEDS ORDERED: KETOROLAC 30 MG/ML 1ML VIAL IV ONE (08:00)
[2023-04-05] MEDS ORDERED: ONDANSETRON 4MG 2ML VIAL IV ONE (08:00)
[2023-04-05] MEDS ORDERED: NS 1,000 ML IV ONE (08:00)
[2023-04-05 08:54] LABS: BASO # 0.1 10^3/uL (0.0-0.2); BASO % 0.3 % (0.0-1.0); EOS # 0.1 10^3/uL (0.0-0.5); EOS % 0.5 % (0.0-3.0); HEMATOCRIT 47.8 % (42.0-52.0); HEMOGLOBIN 16.7 g/dl (13.5-17.5); LYMPH # 1.5 10^3/uL (1.5-5.0); LYMPH % 10.2 % (24.0-44.0); MEAN CORPUSCULAR HEMOGLOBIN 32.9 pg (27.0-33.0); MEAN CORPUSCULAR HGB CONC 34.9 g/dl (32.0-36.5); MEAN CORPUSCULAR VOLUME 94.1 fl (80.0-96.0); MONO # 0.9 10^3/uL (0.0-0.8); MONO % 6.3 % (2.0-8.0); NEUTROPHILS # 11.9 10^3/uL (1.5-8.5); NEUTROPHILS % 82.4 % (36.0-66.0); PLATELET COUNT, AUTOMATED 275 10^3/uL (150-450); RED BLOOD COUNT 5.08 10^6/uL (4.30-6.10); WHITE BLOOD COUNT 14.5 10^3/uL (4.0-10.0)
[2023-04-05 09:16] LABS: BLOOD UREA NITROGEN 15 MG/DL (9-23); CALCIUM LEVEL 9.4 MG/DL (8.5-10.1); CARBON DIOXIDE LEVEL 24 MMOL/L (20-31); CHLORIDE LEVEL 106 MMOL/L (98-107); CREATININE FOR GFR 1.09 MG/DL (0.70-1.30); GLOMERULAR FILTRATION RATE > 60.0 (>56); GLUCOSE, FASTING 154 MG/DL (60-100); POTASSIUM SERUM 4.6 MMOL/L (3.5-5.1); SODIUM LEVEL 139 MMOL/L (136-145)
[2023-04-05] MEDS ORDERED: TAMSULOSIN 0.4 MG CAP PO ONE (09:55)
[2023-04-05 10:13] VITALS: BP 155/72; TEMP 97.7; O2SAT 94
[2023-04-05] MEDS ORDERED: PERC5TAB12 PO (10:14)
== END 2023-04-05 10:35 | disposition home or self-care (01) ==
LOC: M ED 06:00
DX: N20.1 Calculus of ureter (principal); N13.30 Unspecified hydronephrosis; Z87.442 Personal history of urinary calculi; Z88.0 Allergy status to penicillin; Z79.2 Long term (current) use of antibiotics; Z79.899 Other long term (current) drug therapy
CPT/HCPCS: 74176; 80048; 81001; 85025; 96361; 96374; 99284; J1885; J2405

== ENCOUNTER → 2023-04-21 | Outpatient (REF) | payer OTHER ==
[~2023-04-21] MED LIST changes: +PERC5TAB12 PO
== END ==
LOC: M LABSMT 09:59
PROVIDERS: ATTEND Urology
DX: Z53.9 Procedure and treatment not carried out, unspecified reason (principal)